=== PATIENT | female | born 1960 | race Caucasian/White ===

== ENCOUNTER 2019-01-11 12:50 | Day surgery (SDC) | payer BC, OTHER ==
--- OUTSIDE RECORDS SUMMARY | 2019-01-11 12:56 | XMS REPORT ---
:1960 [facility] Address [address] [place] [address] Dr. Bunch [address] [place] [address] Care Team Providers Name Role Phone Unavailable Unavailable Unavailable Problems This patient has no known problems. Allergies, Adverse Reactions, Alerts This patient has no known allergies or adverse reactions. Medications This patient has no known medications.
--- OUTSIDE RECORDS SUMMARY | 2019-01-11 12:56 | XMS REPORT | Summary of Care ---
:1960 Author Organization [facility] - Health Address [address] [place] [address] Care Team Providers Name Role Phone Elias Carvajal Primary Care Provider Encounter Details Date Type Department Care Team Description 01/04/2019 Orders Only [facility] Doctor Unassigned, No [address] [facility] [place] [address] [address] [place] [address] Allergies Not on Filedocumented as of this encounter (statuses as of 01/04/2019) Medications Not on filedocumented as of this encounter (statuses as of 01/04/2019) Active Problems Not on filedocumented as of this encounter (statuses as of 01/04/2019) Social History Tobacco Use Types Packs/Day Years Used Date Never Assessed Sex Assigned at Date Recorded Not on file Job Start Date Occupation Industry Not on file Not on file Not on file Travel History Travel Start Travel End No recent travel history available. documented as of this encounter Last Filed Vital Signs Not on filedocumented in this encounter Plan of Treatment Health Maintenance Due Date Last Done Comments HEPATITIS C (HCV) SCREEN 1960 DTaP,Tdap,and Td Vaccines (1 - 1980 Tdap) PAP SMEAR 1982 MAMMOGRAM 2001 COLONOSCOPY 11/27/2011 Zoster Recombinant Vaccine 11/27/2011 (SHINGRIX) (1 of 2) INFLUENZA VACCINE 02/04/2019 PNEUMOCOCCAL 0-64 YEARS COMBINED Aged Out No longer eligible based on SERIES patient's age to complete this topic documented as of this encounter Procedures Procedure Name Priority Date/Time Associated Diagnosis Comments ASSIGNMENT OF BENEFITS Routine 01/04/2019 2:03 PM CDT documented in this encounter Results Not on filedocumented in this encounter Insurance Payer Benefit Plan / Subscriber ID Effective Dates Phone Address Type Group MEDICARE MEDICARE PART xxxxxxxxxxx 2018-Fox [phone] Medicare A & B nt 2 [id number] YANN ODONNELL [id number] documented as of this encounter
--- OUTSIDE RECORDS SUMMARY | 2019-01-11 12:56 | XMS REPORT | Summary of Care ---
:1960 Author Organization [facility] Address [address] [place] [address] Care Team Providers Name Role Phone Elias Carvajal Primary Care Provider Reason for Referral Radiology Services (Routine) Status Reason Specialty Diagnoses / Referred By Referred To Procedures Contact Contact Closed Diagnostic Diagnoses Post-menopausal bleeding N95.0 (ICD-10-CM) - Post-menopausal bleeding Kadiyala, Radiology Procedures US TRANSVAGINAL CHG ECHOGRAPHY,TRANSVAGINAL [id number] - US TRANSVAGINAL [id number] - CHG ECHOGRAPHY,TRANSVAGINAL MD Tootie [address] [place] [address] Radiology Services (Routine) Status Reason Specialty Diagnoses / Referred By Referred To Procedures Contact Contact Closed Diagnostic Diagnoses Post-menopausal bleeding N95.0 (ICD-10-CM) - Post-menopausal bleeding Kadiyala, Radiology Procedures US TRANSVAGINAL CHG ECHOGRAPHY,TRANSVAGINAL [id number] - US TRANSVAGINAL [id number] - CHG ECHOGRAPHY,TRANSVAGINAL MD Tootie [address] [place] [address] [place] [address] Reason for Visit Radiology Services (Routine) Status Reason Specialty Diagnoses / Referred By Referred To Procedures Contact Contact Closed Diagnostic Diagnoses Post-menopausal bleeding N95.0 (ICD-10-CM) - Post-menopausal bleeding Kadiyala, Radiology Procedures US TRANSVAGINAL CHG ECHOGRAPHY,TRANSVAGINAL [id number] - US TRANSVAGINAL [id number] - CHG ECHOGRAPHY,TRANSVAGINAL MD Tootie [address] [place] [address] [place] [address] Encounter Details Date Type Department Care Team Description 01/04/2019 Hospital Encounter [facility] Jacobo Tootie Carlin, Candice Horton Ultrasound [address] [facility] [address] [place] [address] [place] [address] [place] [id number] Allergies Not on Filedocumented as of this encounter (statuses as of 01/05/2019) Medications Not on filedocumented as of this encounter (statuses as of 01/05/2019) Active Problems Not on filedocumented as of this encounter (statuses as of 01/05/2019) Social History Tobacco Use Types Packs/Day Years [...] Procedure Name Priority Date/Time Associated Diagnosis Comments US TRANSVAGINAL Routine 01/04/2019 2:53 PM Post-menopausal Results for this CDT bleeding procedure are in the results section. documented in this encounter Results US TRANSVAGINAL (01/04/2019 2:53 PM CDT) Specimen Narrative Performed At HISTORY:Postmenopausal bleeding. PACS/VR/DOSE TECHNIQUE: Transvaginal pelvic ultrasound study was completed by the technologist. FINDINGS: This examination was difficult because of position of the uterus within the pelvis. Uterus is of normal size and shape, measures approximately 6 x 2.8 x 4.1 cm in size with heterogeneous myometrial texture with suspicion of a 1 1.7 cm sized fibroid in the anterior wall at the fundus of the uterus. Endometrial echo complex is 4 mm. Small amount of free fluid noted in the cul-de-sac. Both ovaries are difficult to visualize. Right ovary is approximately 1.9 x 1.7 x 1.0 cm ( 1.98 ml) and left ovary is 2.4 x 1.7 x 1.7 cm ( 3.97 ml). CONCLUSIONS: 1. Normal size uterus with 1.7 cm fibroid suspected in the anterior wall of the fundus of the uterus. 2. No endometrial hyperplasia. 3. Difficult to visualize the ovaries. No adnexal masses detected. Procedure Note [facility], Radiant Results Inft User - 01/04/2019 2:58 PM CDT HISTORY: Postmenopausal bleeding. TECHNIQUE: Transvaginal pelvic ultrasound study was completed by the technologist. FINDINGS: This examination was difficult because of position of the uterus within the pelvis. Uterus is of normal size and shape, measures approximately 6 x 2.8 x 4.1 cm in size with heterogeneous myometrial texture with suspicion of a 1 1.7 cm sized fibroid in the anterior wall at the fundus of the uterus. Endometrial echo complex is 4 mm. Small amount of free fluid noted in the cul-de-sac. Both ovaries are difficult to visualize. Right ovary is approximately 1.9 x 1.7 x 1.0 cm ( 1.98 ml) and left ovary is 2.4 x 1.7 x 1.7 cm ( 3.97 ml). CONCLUSIONS: 1. Normal size uterus with 1.7 cm fibroid suspected in the anterior wall of the fundus of the uterus. 2. No endometrial hyperplasia. 3. Difficult to visualize the ovaries. No adnexal masses detected. Performing Organization Address City/State/Zipcode Phone Number PACS/VR/DOSE documented in this encounter Visit Diagnoses Diagnosis Post-menopausal bleeding Postmenopausal bleeding documented in this encounter Insurance Payer Benefit Plan / Subscriber ID Effective Dates Phone Address Type Group MEDICARE MEDICARE PART xxxxxxxxxxx 2018-Prese [phone] [address] Medicare A & B nt 2 [id number] YANN ODONNELL [id number] documented as of this encounter
[2019-01-11] MEDS ORDERED: NA CHLORIDE 0.9% 1,000 ML ONE (13:10)
[2019-01-11] MEDS ORDERED: LIDOCAINE 1% W/EPI 1:100,000 MDV 20 ML VIAL ONE (15:08)
[2019-01-11] MEDS ORDERED: PROMETHAZINE 25 MG/ML VIAL ONE (16:02)
[2019-01-11] MEDS ORDERED: HYDROCODONE/APAP 5/325 MG TAB ONE (16:02)
[2019-01-11] MEDS ORDERED: PROMETHAZINE 25 MG/ML VIAL IV ONE (16:10)
[2019-01-11] MEDS ORDERED: HYDROCODONE/APAP 5/325 MG TAB PO ONE (16:10)
[2019-01-11] MEDS ORDERED: FENTANYL CITR 100 MCG/2 ML ONE (16:28)
[2019-01-11] MEDS ORDERED: FENTANYL CITR 100 MCG/2 ML IV ONE ×2 (16:30→16:40)
[2019-01-11 17:28] VITALS: O2SAT 97
[2019-01-11 17:31] VITALS: BP 104/53; TEMP 98
--- NOTE | 2019-01-12 02:24 | OP ---
Date of Procedure: 01/11/2019 Surgeon: Tootie Carlin MD Preoperative Diagnosis: Postmenopausal bleeding. Postoperative Diagnosis: Postmenopausal bleeding. Procedure Performed: Hysteroscopy, dilation and curettage. Anesthesia: MAC plus paracervical block. Specimens: Endometrial curettings, very scant. Complications: No complications. Drains: No drains. Condition: Stable. Indications: Patient is a 58-year-old with postmenopausal bleeding, evaluated with a transvaginal ul trasound, her stripe was 4 mm. Discussed the benefits and risks of endometrial sampling to rule out endometrial atypia or malignancy and after patient understood the indications, procedure, and complic ations, she was brought to the OR. Description Of Procedure: After informed consent was re-verified in the preop, she was taken back to the OR, placed in the supine fashion on the operating table, MAC given, placed in a dorsal lithotomy position. Time-out done. Prep x3 with Betadine; vulva, vagina, and perineum were done. Then, spec ulum placed to expose the cervix. Anterior lip injected with 1% lidocaine mixed with 1:100,000 epine phrine, 5 cc and at 4 and 8 o'clock positions of the cervicovaginal junction. Then, 2 Allis clamps p laced on the anterior lip. Yanez speculum used, 30-degree lens, normal saline, Slimline hysteroscope were used to traverse the cervical canal under direct visualization into the uterine cavity. Cavity was empty. Endometrium was very thin. Both tubal ostia were visualized. No cavity distortions. Sc ope was removed. Endometrial curettings were performed. There was scant handed out for permanent pa thology. Instruments removed. Instrument and sponge counts correct at the end of the case. Patient tolerated the procedure well. She will follow up with me in 1 week for results. Most likely, the p athology would be negative. If it is, she will follow up with me in 6 months. If there is any atypi a or malignancy, then we will decide to proceed with surgical management. GONZÁLEZ Voice ID: [id number] Report ID: [id number]
[2019-01-12] MEDS ORDERED: LIDOCAINE 2% MPF 5 ML VIAL ONE (10:34)
[2019-01-12] MEDS ORDERED: PROPOFOL 200 MG/20 ML VIAL IV ONE (10:34)
== END 2019-01-11 17:10 | disposition home or self-care (01) ==
LOC: OR 12:50
PROVIDERS: ATTEND Obstetrics & Gynecology
PROC: 0UJD8ZZ Inspection of Uterus and Cervix, Via Natural or Artificial Opening Endoscopic (ICD-10-PCS; 2019-01-11)
PROC: 0UDB7ZX Extraction of Endometrium, Via Natural or Artificial Opening, Diagnostic (ICD-10-PCS; principal; 2019-01-11 14:30)
DX: N95.0 Postmenopausal bleeding (principal); E11.65 Type 2 diabetes mellitus with hyperglycemia; E03.9 Hypothyroidism, unspecified; I10 Essential (primary) hypertension; I48.91 Unspecified atrial fibrillation; I25.10 Atherosclerotic heart disease of native coronary artery without angina pectoris; E78.00 Pure hypercholesterolemia, unspecified; I25.2 Old myocardial infarction; Z95.1 Presence of aortocoronary bypass graft; F17.201 Nicotine dependence, unspecified, in remission; Z80.49 Family history of malignant neoplasm of other genital organs; Z83.3 Family history of diabetes mellitus
CPT/HCPCS: 82962 ×2; 88305; 58558; J2550 ×2; J3010 ×3; J7030

== ENCOUNTER 2019-07-05 14:21 | Emergency (ER) | payer BC, OTHER ==
--- OUTSIDE RECORDS SUMMARY | 2019-07-05 14:24 | XMS REPORT ---
:1960 [facility] Address [address] [place] [address] Dr. Bunch [address] [place] [address] Care Team Providers Name Role Phone Unavailable Unavailable Unavailable Problems This patient has no known problems. Allergies, Adverse Reactions, Alerts This patient has no known allergies or adverse reactions. Medications This patient has no known medications.
[2019-07-05] MEDS ORDERED: NA CHLORIDE 0.9% 500 ML ONE ×2 (15:31→16:28)
[2019-07-05 15:41] LABS: Absolute Lymphocytes (CBC) 1.5 K/uL (0.7-4.9); Basophils % 0.6 % (0-1.3); Hematocrit 38.8 % (36.0-45.0); Lymphocytes % 20.1 % (15.3-44.8); MPV 9.5 fL (7.6-11.3); RBC Red Blood Cell Count 4.36 M/uL (3.86-4.86)
[2019-07-05 16:13] LABS: BUN Blood Urea Nitrogen 31 mg/dL (7-18); Bicarbonate 26 mmol/L (21-32); Glucose Level 197 mg/dL (74-106); Potassium 4.1 mmol/L (3.5-5.1); Sodium Level 143 mmol/L (136-145); Troponin (Emerg Dept Use Only) < 0.02 ng/mL (0.0-0.045)
[2019-07-05] MEDS ORDERED: DIGOXIN 0.25 MG/ML AMP ONE (16:28)
--- NOTE | 2019-07-05 18:20 | ER ---
Nurse's Notes [facility] Name: Vane Lee Age: 58 yrs Sex: Female : 1960 Arrival Date: 07/05/2019 Time: 14:22 Bed 6 Private MD: Diagnosis: Unspecified atrial fibrillation Presentation: 07/05 14:25 Presenting complaint: Patient states: Seasonal flutters started last night. It also ca1 woke me up this morning. Previous history of cardioversion 2x, triple bypass 2014. Denies SOB, nausea, dizziness, lightheadness. Transition of care: patient was not received from another setting of care. Onset of symptoms was July 05, 2019. Risk Assessment: Do you want to hurt yourself or someone else? Patient reports no desire to harm self or others. Initial Sepsis Screen: Does the patient meet any 2 criteria? No. Patient's initial sepsis screen is negative. Does the patient have a suspected source of infection? No. Patient's initial sepsis screen is negative. Care prior to arrival: None. 14:25 Method Of Arrival: Ambulatory ca1 14:25 Acuity: LUIS 2 ca1 Historical: - Allergies: 14:30 No Known Allergies; ca1 - PMHx: 14:30 Atrial Fib; High Cholesterol; Hypertension; Hypothyroidism; ca1 - PSHx: 14:30 Heart stents; CABG; ca1 - Immunization history:: Adult Immunizations up to date. - Coronavirus screen:: The patient has NOT traveled to [place], [place], or [place] in the past 14 days. The patient has NOT had contact with known/suspected case of Coronavirus?. - Social history:: Smoking status: Patient denies any tobacco usage or history of. - Family history:: not pertinent. - Ebola Screening: : Patient negative for fever greater than or equal to 101.5 degrees Fahrenheit, and additional compatible Ebola Virus Disease symptoms Patient denies exposure to infectious person Patient denies travel to an Ebola-affected area in the 21 days before illness onset No symptoms or risks identified at this time. - Hospitalizations: : No recent hospitalization is reported. Screenin:00 Abuse screen: Denies threats or abuse. Denies injuries from another. Nutritional jl7 screening: No deficits noted. Tuberculosis screening: No symptoms or risk factors identified. Fall Risk IV access (20 points). Total Stanford Fall Scale indicates No Risk (0-24 pts). Assessment: 15:00 General: Appears in no apparent distress. uncomfortable, Behavior is calm, cooperative, jl7 appropriate for age. Pain: Denies pain. Neuro: Level of Consciousness is awake, alert, obeys commands, Oriented to person, place, time, situation. Cardiovascular: Heart tones present Patient's skin is warm and dry. Rhythm is atrial fibrillation. Respiratory: Airway is patent Respiratory effort is even, unlabored, Respiratory pattern is regular, symmetrical, Breath sounds are clear bilaterally. Denies shortness of breath. Derm: Skin is pink, warm \T\ dry. 16:15 Reassessment: ERD notified of BP, see MAR for orders. jl7 18:16 Reassessment: Patient appears in no apparent distress at this time. Patient and/or ph family updated on plan of care and expected duration. Pain level reassessed. Patient is alert, oriented x 3, equal unlabored respirations, skin warm/dry/pink. Pt d/c home, states that she will follow up w/ Dr Barbosa, instructed to return to ED if symptoms return. Vital Signs: 14:30 BP 87 / 62; Pulse 98; Resp 19 S; Temp 97.4(O); Pulse Ox 97% on R/A; Weight 81.19 kg ca1 (R); Height 5 ft. 4 in. (162.56 cm) (R); Pain 0/10; 15:37 BP 92 / 57; Pulse 69; Resp 16; Pulse Ox 98% ; Pain 0/10; jl7 15:51 BP 90 / 74; Pulse 72; Resp 17 S; Pulse Ox 96% on R/A; jl7 16:15 BP 79 / 61; Pulse 75; Resp 16 S; Pulse Ox 97% on R/A; jl7 17:00 BP 90 / 58; Pulse 61; Resp 15 S; Pulse Ox 98% on R/A; jl7 18:15 BP 102 / 68; Pulse 59; Resp 18; Temp 97.8; Pulse Ox 98% on R/A; ph 14:30 Body Mass Index 30.72 (81.19 kg, 162.56 cm) ca1 ED Course: 14:22 Patient arrived in ED. as 14:29 Triage completed. ca1 14:30 Arm band placed on right wrist. ca1 14:33 Mic Echeverria MD is Attending Physician. rn 14:59 Mora Clay, RN is Primary Nurse. ph 15:00 Patient has correct armband on for positive identification. Placed in gown. Bed in low jl7 position. Call light in reach. Side rails up X 1. cardiac monitor on. Pulse ox on. NIBP on. Warm blanket given. 15:10 Initial lab(s) drawn, by ky, sent to lab. Inserted saline lock: 22 gauge in right jl7 wrist, using aseptic technique. Blood collected. 15:35 Inserted saline lock: 18 gauge in right antecubital area, using aseptic technique. 3 15:41 Ba Antoine, RN is Primary Nurse. jl7 15:46 EKG done, by technical support representative. reviewed by Mic Echeverria MD. at1 17:[address] Carter paged through his answering service. eb 17:[address] Carter with Dr. Echeverria fo patient consult. eb 17:45 EKG done, by ED staff, reviewed by Mic Echeverria MD. [facility] 18:00 Reuben Carter MD is Referral Physician. rn 18:17 No provider procedures requiring assistance completed. IV discontinued, intact, ph bleeding controlled, No redness/swelling at site. Pressure dressing applied. Administered Medications: 15:25 Drug: NS 0.9% 500 ml Route: IV; Rate: bolus; Site: right wrist; jl7 16:00 Follow up: Response: No adverse reaction; IV Status: Completed infusion; IV Intake: jl7 500ml 16:26 Not Given (Duplicate Order): Digoxin 0.125 mg IVP once rn 16:28 Drug: NS 0.9% 500 ml Route: IV; Rate: bolus; Site: right antecubital; jl7 18:16 Follow up: Response: No adverse reaction; Blood pressure is elevated; IV Status: ph Completed infusion; IV Intake: 500ml 16:29 Drug: Digoxin 0.25 mg Route: IVP; Site: right antecubital; jl7 18:15 Follow up: Response: No adverse reaction; Cardiac rhythm changed ph Intake: 16:00 IV: 500ml; Total: 500ml. jl7 18:16 IV: 500ml; Total: 1000ml. ph Outcome: 18:00 Discharge ordered by MD. rn 18:17 Discharged to home ambulatory, with significant other. ph 18:17 Condition: improved 18:17 Discharge instructions given to patient, Instructed on discharge instructions, follow up and referral plans. Demonstrated understanding of instructions, follow-up care. 18:18 Patient left the ED. ph Signatures: Mackenzie Aquino Roman, MD MD rn Kelsi Hines, cyanide pot tender EKG Tat1 Mora Clay RN RN ph Ba Antoine RN RN 7 Maru Bueno 3 Sue Rivera Cheryl RN RN ca1 Corrections: (The following items were deleted from the chart) 14:33 14:25 Acuity: LUIS 3 ca1 ca1
--- NOTE | 2019-07-05 18:20 | EDPHYS ---
Physician Documentation [facility] Name: Vane Lee Age: 58 yrs Sex: Female : 1960 Arrival Date: 07/05/2019 Time: 14:22 Bed 6 Private MD: ED Physician Mic Echeverria HPI: 07/05 15:48 This 58 yrs old Female presents to ER via Ambulatory with complaints of afib. rn 15:48 The patient presents with a history of irregular heart beat, heart racing. Context: The rn symptoms occur at rest. Onset: The symptoms/episode began/occurred last night. Duration: The patient or guardian reports a single episode. Modifying factors: The symptoms are aggravated by nothing. The symptoms are alleviated by nothing. Associated signs and symptoms: Pertinent negatives: chest pain, fever, lightheadedness, nausea, syncope, near-syncope, vertigo, vomiting. Severity of symptoms: At their worst the symptoms were moderate in the emergency department the symptoms have improved. The patient has experienced similar episodes in the past. The patient has not recently seen a physician. Historical: - Allergies: 14:30 No Known Allergies; ca1 - PMHx: 14:30 Atrial Fib; High Cholesterol; Hypertension; Hypothyroidism; ca1 - PSHx: 14:30 Heart stents; CABG; ca1 - Immunization history:: Adult Immunizations up to date. - Coronavirus screen:: The patient has NOT traveled to [place], [place], or [place] in the past 14 days. The patient has NOT had contact with known/suspected case of Coronavirus?. - Social history:: Smoking status: Patient denies any tobacco usage or history of. - Family history:: not pertinent. - Ebola Screening: : Patient negative for fever greater than or equal to 101.5 degrees Fahrenheit, and additional compatible Ebola Virus Disease symptoms Patient denies exposure to infectious person Patient denies travel to an Ebola-affected area in the 21 days before illness onset No symptoms or risks identified at this time. - Hospitalizations: : No recent hospitalization is reported. ROS: 15:48 Constitutional: Negative for fever, chills, and weight loss, Eyes: Negative for injury, rn pain, redness, and discharge, Neck: Negative for injury, pain, and swelling, Cardiovascular: Negative for chest pain, and edema, Respiratory: Negative for shortness of breath, cough, wheezing, and pleuritic chest pain, Abdomen/GI: Negative for abdominal pain, nausea, vomiting, diarrhea, and constipation, MS/Extremity: Negative for injury and deformity, Skin: Negative for injury, rash, and discoloration, Neuro: Negative for headache, weakness, numbness, tingling, and seizure. Exam: 15:48 Constitutional: This is a well developed, well nourished patient who is awake, alert, rn and in no acute distress. Head/Face: Normocephalic, atraumatic. ENT: MMM Cardiovascular: Irregular rhythm, regular rate Respiratory: No increased work of breathing, no retractions or nasal flaring. Abdomen/GI: soft, non-tender Skin: Warm, dry with normal turgor. Normal color with no rashes, no lesions, and no evidence of cellulitis. MS/ Extremity: Pulses equal, no cyanosis. Neurovascular intact. Full, normal range of motion. Equal circumference. Neuro: Awake and alert Vital Signs: 14:30 BP 87 / 62; Pulse 98; Resp 19 S; Temp 97.4(O); Pulse Ox 97% on R/A; Weight 81.19 kg ca1 (R); Height 5 ft. 4 in. (162.56 cm) (R); Pain 0/10; 15:37 BP 92 / 57; Pulse 69; Resp 16; Pulse Ox 98% ; Pain 0/10; jl7 15:51 BP 90 / 74; Pulse 72; Resp 17 S; Pulse Ox 96% on R/A; jl7 16:15 BP 79 / 61; Pulse 75; Resp 16 S; Pulse Ox 97% on R/A; jl7 17:00 BP 90 / 58; Pulse 61; Resp 15 S; Pulse Ox 98% on R/A; jl7 18:15 BP 102 / 68; Pulse 59; Resp 18; Temp 97.8; Pulse Ox 98% on R/A; ph 14:30 Body Mass Index 30.72 (81.19 kg, 162.56 cm) ca1 MDM: 14:33 Patient medically screened. rn 17:59 Differential diagnosis: arrythmia, dehydration, stress disorder. Data reviewed: vital rn signs, nurses notes, lab test result(s), EKG, and as a result, I will discharge patient. Counseling: I had a detailed discussion with the patient and/or guardian regarding: the historical points, exam findings, and any diagnostic results supporting the discharge/admit diagnosis, lab results, the need for outpatient follow up, to return to the emergency department if symptoms worsen or persist or if there are any questions or concerns that arise at home. Response to treatment: the patient's symptoms have resolved after treatment, the patient's condition has returned to base line, the patient is now symptom free, and as a result, I will discharge patient. Special discussion: I discussed with the patient/guardian in detail that at this point there is no indication for admission to the hospital. It is understood, however, that if the symptoms persist or worsen the patient needs to return immediately for re-evaluation. ED course: Pt resolved, now in sinus rhythm, asymptomatic, consulted with Dr. Carter, states now that sinus can f/u tomorrow in his clinic.. 07/05 14:53 Order name: CBC with Diff; Complete Time: 16: rn 07/05 14:53 Order name: Basic Metabolic Panel; Complete Time: 16: rn 07/05 14:53 Order name: Troponin (emerg Dept Use Only); Complete Time: 16: rn 07/05 14:53 Order name: Digoxin; Complete Time: 16: rn 07/05 14:53 Order name: IV Start; Complete Time: 15:24 rn 07/05 14:53 Order name: EKG; Complete Time: 14:53 rn 07/05 14:53 Order name: EKG - Nurse/Tech; Complete Time: 15:24 rn Administered Medications: 15:25 Drug: NS 0.9% 500 ml Route: IV; Rate: bolus; Site: right wrist; jl7 16:00 Follow up: Response: No adverse reaction; IV Status: Completed infusion; IV Intake: jl7 500ml 16:26 Not Given (Duplicate Order): Digoxin 0.125 mg IVP once rn 16:28 Drug: NS 0.9% 500 ml Route: IV; Rate: bolus; Site: right antecubital; jl7 18:16 Follow up: Response: No adverse reaction; Blood pressure is elevated; IV Status: ph Completed infusion; IV Intake: 500ml 16:29 Drug: Digoxin 0.25 mg Route: IVP; Site: right antecubital; jl7 18:15 Follow up: Response: No adverse reaction; Cardiac rhythm changed ph Disposition: 07/05/19 18:00 Discharged to Home. Impression: Unspecified atrial fibrillation. - Condition is Stable. - Discharge Instructions: Atrial Fibrillation. - Medication Reconciliation Form, Thank You Letter, Antibiotic Education, Prescription Opioid Use form. - Follow up: Reuben Carter MD; When: Tomorrow; Reason: Recheck today's complaints, Re-evaluation by your physician. - Problem is new. - Symptoms are resolved. Signatures: Dispatcher [employer] [facility] Mic Echeverria MD MD rn Mora Clay RN RN ph Ba Antoine RN RN jl7 Acob, Janelle RN RN ca1 Corrections: (The following items were deleted from the chart) 18:18 18:00 07/05/2019 18:00 Discharged to Home. Impression: Unspecified atrial fibrillation. ph Condition is Stable. Forms are Medication Reconciliation Form, Thank You Letter, Antibiotic Education, Prescription Opioid Use. Follow up: Reuben Carter; When: Tomorrow; Reason: Recheck today's complaints, Re-evaluation by your physician. Problem is new. Symptoms are resolved. rn
[2019-07-05 21:24] VITALS: O2SAT 98
[2019-07-05 21:26] VITALS: BP 102/68; TEMP 97.8
--- NOTE | 2019-07-06 13:49 | EKG ---
Test Date: 2019-07-05 Test Time: 14:43:21 Engineering Operations Leader: LILIAN MEASUREMENT RESULTS: Intervals: Rate: 84 NV: QRSD: 106 QT: 416 QTc: 491 [place]: P: NV: QRS: -43 T: 137 INTERPRETIVE STATEMENTS: Atrial fibrillation Left axis deviation ST & T wave abnormality, consider lateral ischemia or digitalis effect Prolonged QT Abnormal ECG Compared to ECG 06/10/2017 08:57:32 ST (T wave) deviation now present Possible ischemia now present Prolonged QT interval now present Sinus bradycardia no longer present First degree AV block no longer present T-wave abnormality no longer present Electronically Signed On 07-06-19 13:46:07 VARIETY SAW OPERATOR by Reuben Carter
--- NOTE | 2019-07-06 13:49 | EKG ---
Test Date: 2019-07-05 Test Time: 15:37:33 Tower Crane Operator: LILIAN MEASUREMENT RESULTS: Intervals: Rate: 73 RI: QRSD: 110 QT: 456 QTc: 502 [place]: P: RI: QRS: -61 T: 144 INTERPRETIVE STATEMENTS: Atrial fibrillation Left axis deviation ST & T wave abnormality, consider lateral ischemia Prolonged QT Abnormal ECG Compared to ECG 07/05/2019 14:43:21 No significant changes Electronically Signed On 07-06-19 13:46:01 ELECTROTYPE MOLDER by Reuben Carter
--- NOTE | 2019-07-06 13:49 | EKG ---
Test Date: 2019-07-05 Test Time: 17:41:48 Reconciliation Clerk: YANG MEASUREMENT RESULTS: Intervals: Rate: 53 CA: 244 QRSD: 104 QT: 488 QTc: 457 [place]: P: 52 CA: 244 QRS: -68 T: 124 INTERPRETIVE STATEMENTS: Sinus bradycardia with 1st degree AV block Left axis deviation T wave abnormality, consider lateral ischemia Abnormal ECG Compared to ECG 07/05/2019 15:37:33 First degree AV block now present T-wave abnormality now present Atrial fibrillation no longer present ST (T wave) deviation no longer present Prolonged QT interval no longer present Possible ischemia still present Electronically Signed On 07-06-19 13:45:55 VIROLOGY TEACHER by Reuben Carter
== END 2019-07-05 18:18 | disposition home or self-care (01) ==
LOC: ER 14:21
DX: I48.92 Unspecified atrial flutter (principal); Z95.1 Presence of aortocoronary bypass graft
CPT/HCPCS: 96361; 93005 ×3; 85025; 80048; 36415; 80162; 84484; 96374; 99284; J1160; J7040 ×2

== ENCOUNTER 2019-07-07 00:30 | Emergency (ER) | payer BC, OTHER ==
[2019-07-07] MEDS ORDERED: NA CHLORIDE 0.9% 1,000 ML ONE ×2 (01:14→02:46)
[2019-07-07 01:47] LABS: Absolute Lymphocytes (CBC) 2.3 K/uL (0.7-4.9); Basophils % 0.8 % (0-1.3); Hematocrit 37.1 % (36.0-45.0); Lymphocytes % 32.2 % (15.3-44.8); MPV 9.4 fL (7.6-11.3); RBC Red Blood Cell Count 4.17 M/uL (3.86-4.86)
[2019-07-07 01:48] LABS: Protime INR 2.17
[2019-07-07 02:01] LABS: ALT/SGPT 38 U/L (12-78); AST/SGOT 24 U/L (15-37); Albumin 3.8 g/dL (3.4-5.0); Alkaline Phosphatase 79 U/L (45-117); BUN Blood Urea Nitrogen 25 mg/dL (7-18); Bicarbonate 30 mmol/L (21-32); Bilirubin Direct 0.2 mg/dL (0-0.2); Bilirubin Total 0.5 mg/dL (0.2-1.0); Glucose Level 90 mg/dL (74-106); Magnesium 1.9 mg/dL (1.8-2.4); NT PRO-BNP 1530 pg/mL (<125); Potassium 3.8 mmol/L (3.5-5.1); Protein, Total 7.5 g/dL (6.4-8.2); Sodium Level 142 mmol/L (136-145); Troponin (Emerg Dept Use Only) < 0.02 ng/mL (0.0-0.045)
--- NOTE | 2019-07-07 03:27 | ER ---
Nurse's Notes [facility] Name: Vane Lee Age: 58 yrs Sex: Female : 1960 Arrival Date: 07/07/2019 Time: 00:32 Bed 5 Private MD: Diagnosis: Atrial fibrillation and flutter Presentation: 07/07 00:40 Presenting complaint: Patient states: she has been feeling a flutter in her chest since aa1 approx 2144 this evening and was concerned because she was recently seen here for AF. Denies CP or SOB. States she was seen by Dr. Carter this morning for a f/u appt from her recent visit. Transition of care: patient was not received from another setting of care. Onset of symptoms was July 06, 2019 at 21:45. Risk Assessment: Do you want to hurt yourself or someone else? Patient reports no desire to harm self or others. Initial Sepsis Screen: Does the patient meet any 2 criteria? No. Patient's initial sepsis screen is negative. Does the patient have a suspected source of infection? No. Patient's initial sepsis screen is negative. Care prior to arrival: None. 00:40 Method Of Arrival: Wheelchair aa1 00:40 Acuity: LUIS 3 aa1 Historical: - Allergies: 01:06 No Known Allergies; aa1 - Home Meds: 01:06 ozempic 0.5 mg weekly [Active]; Entresto 49-51 mg oral tab 1 tab 2 times per day aa1 [Active]; levothyroxine 50 mcg tab 1 tab once daily [Active]; amiodarone 200 mg Oral tab 1 tab once daily [Active]; gabapentin 300 mg Oral cap 1 cap 3 times per day [Active]; atorvastatin 40 mg Oral tab 1 tab once daily [Active]; carvedilol 6.25 mg Oral tab 1 tab 2 times per day [Active]; furosemide 40 mg Oral tab 1 tab as needed [Active]; aspirin 81 mg Oral TbEC 1 tab once daily [Active]; alprazolam 0.25 mg Oral tab 1 tab as needed [Active]; Xarelto 15 mg oral tab daily [Active]; - PMHx: 01:06 Atrial Fib; High Cholesterol; Hypertension; Hypothyroidism; Anxiety; aa1 - PSHx: 01:06 Heart stents; CABG; Tubal ligation; aa1 - Immunization history:: Flu vaccine is up to date. - Coronavirus screen:: The patient has NOT traveled to [place], [place], or [place] in the past 14 days. Proceed with normal triage process as indicated. - Social history:: Smoking status: Patient denies any tobacco usage or history of. - Ebola Screening: : No symptoms or risks identified at this time. Screenin:45 Abuse screen: Denies threats or abuse. Denies injuries from another. Nutritional aa1 screening: No deficits noted. Tuberculosis screening: No symptoms or risk factors identified. Fall Risk None identified. Assessment: 00:45 General: Appears in no apparent distress. comfortable, Behavior is calm, cooperative, aa1 appropriate for age. Pain: Denies pain. Neuro: Level of Consciousness is awake, alert, obeys commands, Oriented to person, place, time, situation, Moves all extremities. Full function Speech is normal. Cardiovascular: Reports palpitations, Denies chest pain, diaphoresis, lightheadedness, nausea, shortness of breath, Heart tones S1 S2 present Capillary refill < 3 seconds Clubbing of nail beds is absent JVD is absent Patient's skin is warm and dry. Respiratory: Airway is patent Respiratory effort is even, unlabored, Respiratory pattern is regular, symmetrical. GI: No signs and/or symptoms were reported involving the gastrointestinal system. : No signs and/or symptoms were reported regarding the genitourinary system. EENT: No signs and/or symptoms were reported regarding the EENT system. Derm: Skin is intact, is healthy with good turgor, Skin is pink, warm \T\ dry. Musculoskeletal: Circulation, motion, and sensation intact. Capillary refill < 3 seconds. 01:47 Reassessment: Patient appears in no apparent distress at this time. Patient and/or aa1 family updated on plan of care and expected duration. Pain level reassessed. Patient is alert, oriented x 3, equal unlabored respirations, skin warm/dry/pink. Awaiting lab results. 02:45 Reassessment: Patient appears in no apparent distress at this time. Patient and/or aa1 family updated on plan of care and expected duration. Pain level reassessed. Patient is alert, oriented x 3, equal unlabored respirations, skin warm/dry/pink. Per DAIRY NUTRITION CONSULTANT, will administer 2nd liter bolus and d/c once complete Patient denies pain at this time. Patient states feeling better. 03:33 Reassessment: Patient appears in no apparent distress at this time. Patient is alert, aa1 oriented x 3, equal unlabored respirations, skin warm/dry/pink. Discussed d/c \T\ f/u instructions with pt \T\ family; denies questions or concerns at this time. Ambulatory to lobby with steady gait. Patient denies pain at this time. Vital Signs: 00:40 BP 110 / 82; Pulse 84; Resp 18; Temp 97.0; Pulse Ox 99% on R/A; Weight 80.74 kg (R); aa1 Height 5 ft. 4 in. (162.56 cm); Pain 0/10; 01:47 BP 93 / 60; Pulse 64; Resp 16; Pulse Ox 99% on R/A; Pain 0/10; aa1 02:40 BP 97 / 59; Pulse 71; Resp 16; Pulse Ox 99% on R/A; Pain 0/10; aa1 03:33 BP 93 / 58; Pulse 77; Resp 16; Temp 97.2; Pulse Ox 98% on R/A; Pain 0/10; aa1 00:40 Body Mass Index 30.55 (80.74 kg, 162.56 cm) aa1 ED Course: 00:32 Patient arrived in ED. cl3 00:40 Arm band placed on right wrist. Patient placed in an exam room, on a stretcher. aa1 00:43 Ajay Villa NP is PHCP. pm1 00:43 Fabricio Frausto MD is Attending Physician. pm1 00:45 Patient has correct armband on for positive identification. Placed in gown. Bed in low aa1 position. Call light in reach. case monitor on. Pulse ox on. NIBP on. Warm blanket given. Pillow given. 00:59 Sofi Camacho, NORRIS is Primary Nurse. aa1 01:01 Triage completed. aa1 01:08 EKG done, by ED staff, reviewed by Fabricio Frausto MD. aa1 01:13 X-ray completed. Portable x-ray completed in exam room. Patient tolerated procedure mh1 well. 01:15 Initial lab(s) drawn, by me, sent to lab. Inserted saline lock: 20 gauge in right aa1 antecubital area, using aseptic technique. Blood collected. 01:50 XRAY Chest (1 view) In Process Unspecified. EDMS 03:25 Reuben Carter MD is Referral Physician. pm1 03:33 No provider procedures requiring assistance completed. IV discontinued, intact, aa1 bleeding controlled, No redness/swelling at site. Pressure dressing applied. Administered Medications: 01:20 Drug: NS 0.9% 1000 ml Route: IV; Rate: 1000 ml; Site: right antecubital; aa1 02:00 Follow up: IV Status: Completed infusion; IV Intake: 1000ml aa1 02:46 Drug: NS 0.9% 1000 ml Route: IV; Rate: 1000 ml; Site: right antecubital; aa1 03:33 Follow up: IV Status: Completed infusion; IV Intake: 1000ml aa1 Intake: 02:00 IV: 1000ml; Total: 1000ml. aa1 03:33 IV: 1000ml; Total: 2000ml. aa1 Outcome: 03:25 Discharge ordered by MD. pm1 03:33 Discharged to home ambulatory, with family. aa1 03:33 Condition: good 03:33 Discharge instructions given to patient, family, Instructed on discharge instructions, follow up and referral plans. medication usage, Demonstrated understanding of instructions, follow-up care, medications. 03:35 Patient left the ED. aa1 Signatures: Dispatcher [employer] EDMD Sofi Camacho RN RN aa1 Duyen Mast mh1 Ajay Villa, JACOB DAIRY NUTRITION CONSULTANT pm1 Richelle Delatorre cl3
--- NOTE | 2019-07-07 03:27 | EDPHYS ---
Physician Documentation [facility] Name: Vane Lee Age: 58 yrs Sex: Female : 1960 Arrival Date: 07/07/2019 Time: 00:32 Bed 5 Private MD: ED Physician Fabricio Frausto HPI: 07/07 00:49 This 58 yrs old Female presents to ER via Wheelchair with complaints of pm1 Palpitations. 00:49 The patient presents with a history of irregular heart beat. Context: The symptoms pm1 occur and the patient has a history of history of atrial fibrillation, Onset after taking a shower this afternoon at 2100. Modifying factors: The symptoms are aggravated by anxiety, The symptoms are alleviated by prescription medication, Took additional amiodarone as directed by Dr. Barbosa. Associated signs and symptoms: Pertinent positives: anxiety, Pertinent negatives: chest pain, SOB. Severity of symptoms: in the emergency department the symptoms are unchanged. The patient has experienced similar episodes in the past, a few times. Patient was seen here 2 days ago for a similar complaint of palpitations and atrial fibrillation. She was discharged home and followed up with Dr. Barbosa Tuesday morning. He started her on Xarelto 15 mg that she has already taken and instructed her to take an additional amiodarone or extra carvedilol. Patient took an extra Amiodarone but held the extra carvedilol because her heart rate was normal. Historical: - Allergies: 01:06 No Known Allergies; aa1 - Home Meds: 01:06 ozempic 0.5 mg weekly [Active]; Entresto 49-51 mg oral tab 1 tab 2 times per day aa1 [Active]; levothyroxine 50 mcg tab 1 tab once daily [Active]; amiodarone 200 mg Oral tab 1 tab once daily [Active]; gabapentin 300 mg Oral cap 1 cap 3 times per day [Active]; atorvastatin 40 mg Oral tab 1 tab once daily [Active]; carvedilol 6.25 mg Oral tab 1 tab 2 times per day [Active]; furosemide 40 mg Oral tab 1 tab as needed [Active]; aspirin 81 mg Oral TbEC 1 tab once daily [Active]; alprazolam 0.25 mg Oral tab 1 tab as needed [Active]; Xarelto 15 mg oral tab daily [Active]; - PMHx: 01:06 Atrial Fib; High Cholesterol; Hypertension; Hypothyroidism; Anxiety; aa1 - PSHx: 01:06 Heart stents; CABG; Tubal ligation; aa1 - Immunization history:: Flu vaccine is up to date. - Coronavirus screen:: The patient has NOT traveled to [place], [place], or [place] in the past 14 days. Proceed with normal triage process as indicated. - Social history:: Smoking status: Patient denies any tobacco usage or history of. - Ebola Screening: : No symptoms or risks identified at this time. ROS: 01:19 Constitutional: Negative for fever, chills, and weight loss, Eyes: Negative for injury, pm1 pain, redness, and discharge, ENT: Negative for injury, pain, and discharge, Neck: Negative for injury, pain, and swelling, Respiratory: Negative for shortness of breath, cough, wheezing, and pleuritic chest pain. 01:19 Abdomen/GI: Negative for abdominal pain, nausea, vomiting, diarrhea, and constipation, Back: Negative for injury and pain, : Negative for injury, bleeding, discharge, and swelling, MS/Extremity: Negative for injury and deformity, Skin: Negative for injury, rash, and discoloration, Neuro: Negative for headache, weakness, numbness, tingling, and seizure. 01:19 Cardiovascular: Positive for palpitations, Negative for chest pain, edema, orthopnea. Exam: 01:19 Constitutional: This is a well developed, well nourished patient who is awake, alert, pm1 and in no acute distress. Head/Face: Normocephalic, atraumatic. Eyes: Pupils equal round and reactive to light, extra-ocular motions intact. Lids and lashes normal. Conjunctiva and sclera are non-icteric and not injected. Cornea within normal limits. Periorbital areas with no swelling, redness, or edema. Chest/axilla: Normal chest wall appearance and motion. Nontender with no deformity. No lesions are appreciated. 01:19 Respiratory: Lungs have equal breath sounds bilaterally, clear to auscultation and percussion. No rales, rhonchi or wheezes noted. No increased work of breathing, no retractions or nasal flaring. Abdomen/GI: Soft, non-tender, with normal bowel sounds. No distension or tympany. No guarding or rebound. No evidence of tenderness throughout. Back: No spinal tenderness. No costovertebral tenderness. Full range of motion. Skin: Warm, dry with normal turgor. Normal color with no rashes, no lesions, and no evidence of cellulitis. MS/ Extremity: Pulses equal, no cyanosis. Neurovascular intact. Full, normal range of motion. 01:19 Cardiovascular: Rate: normal, Rhythm: irregular, Pulses: no pulse deficits are appreciated, Heart sounds: normal, Edema: is not appreciated. 01:19 Neuro: Orientation: is normal, Motor: is normal, moves all fours. Vital Signs: 00:40 BP 110 / 82; Pulse 84; Resp 18; Temp 97.0; Pulse Ox 99% on R/A; Weight 80.74 kg (R); aa1 Height 5 ft. 4 in. (162.56 cm); Pain 0/10; 01:47 BP 93 / 60; Pulse 64; Resp 16; Pulse Ox 99% on R/A; Pain 0/10; aa1 02:40 BP 97 / 59; Pulse 71; Resp 16; Pulse Ox 99% on R/A; Pain 0/10; aa1 03:33 BP 93 / 58; Pulse 77; Resp 16; Temp 97.2; Pulse Ox 98% on R/A; Pain 0/10; aa1 00:40 Body Mass Index 30.55 (80.74 kg, 162.56 cm) aa MDM: 00:49 Patient medically screened. pm1 02:50 Data reviewed: vital signs. Data interpreted: Pulse oximetry: on room air is 99 %. pm1 Interpretation: normal. Counseling: I had a detailed discussion with the patient and/or guardian regarding: the historical points, exam findings, and any diagnostic results supporting the discharge/admit diagnosis, lab results, radiology results, the need for outpatient follow up, to return to the emergency department if symptoms worsen or persist or if there are any questions or concerns that arise at home. 07/07 00:49 Order name: Basic Metabolic Panel; Complete Time: 02:00 pm1 07/07 00:49 Order name: CBC with Diff; Complete Time: 02:00 pm1 07/07 00:49 Order name: LFT's; Complete Time: 02: pm1 07/07 00:49 Order name: Magnesium; Complete Time: 02:00 pm07/07 00:49 Order name: NT PRO-BNP; Complete Time: 02:00 pm1 07/07 00:49 Order name: PT-INR; Complete Time: 02:00 pm07/07 00:49 Order name: Troponin (emerg Dept Use Only); Complete Time: 02:00 pm1 07/07 00:49 Order name: XRAY Chest (1 view) pm1 07/07 00:49 Order name: EKG; Complete Time: 00:50 pm1 07/07 00:49 Order name: Cardiac monitoring; Complete Time: 01:06 pm07/07 00:49 Order name: EKG - Nurse/Tech; Complete Time: 01:06 pm07/07 00:49 Order name: IV Saline Lock; Complete Time: :23 pm07/07 00:49 Order name: Labs collected and sent; Complete Time: 01:23 pm07/07 00:49 Order name: O2 Per Protocol; Complete Time: 01: pm07/07 00:49 Order name: O2 Sat Monitoring; Complete Time: 01:06 pm1 EC:38 Rate is 83 beats/min. Rhythm is irregular, A fib with No ectopy. No Q waves. T waves pm1 are Normal. No ST changes noted. Clinical impression: Atrial Fibrillation. Administered Medications: 01:20 Drug: NS 0.9% 1000 ml Route: IV; Rate: 1000 ml; Site: right antecubital; aa1 02:00 Follow up: IV Status: Completed infusion; IV Intake: 1000ml aa1 02:46 Drug: NS 0.9% 1000 ml Route: IV; Rate: 1000 ml; Site: right antecubital; aa1 03:33 Follow up: IV Status: Completed infusion; IV Intake: 1000ml aa1 Disposition: 06:03 Co-signature as Attending Physician, Fabricio Frausto MD I agree with the assessment and kdr plan of care. Disposition: 07/07/19 03:25 Discharged to Home. Impression: Atrial fibrillation and flutter. - Condition is Stable. - Discharge Instructions: Atrial Fibrillation. - Medication Reconciliation Form, Thank You Letter, Antibiotic Education, Prescription Opioid Use form. - Follow up: Emergency Department; When: As needed; Reason: Worsening of condition. Follow up: Reuben Carter; When: 2 - 3 days; Reason: Recheck today's complaints, Continuance of care, Re-evaluation by your physician. - Problem is new. - Symptoms have improved. Signatures: Dispatcher [employer] EDSofi Bustillo RN RN aa1 Fabricio Frausto MD MD kdr Marinas, Patrick, FIELD TALENT QUALIFICATION SPECIALIST FIELD TALENT QUALIFICATION SPECIALIST pm1 Corrections: (The following items were deleted from the chart) 03:35 03:25 07/07/2019 03:25 Discharged to Home. Impression: Atrial fibrillation and flutter. aa1 Condition is Stable. Forms are Medication Reconciliation Form, Thank You Letter, Antibiotic Education, Prescription Opioid Use. Follow up: Emergency Department; When: As needed; Reason: Worsening of condition. Follow up: Reuben Carter; When: 2 - 3 days; Reason: Recheck today's complaints, Continuance of care, Re-evaluation by your physician. Problem is new. Symptoms have improved. pm1
[2019-07-07 03:51] VITALS: BP 93/58; TEMP 97.2; O2SAT 98
--- OUTSIDE RECORDS SUMMARY | 2019-07-07 04:49 | XMS REPORT ---
:1960 [facility] Address [address] [place] [address] Dr. Bunch [address] [place] [id number] Care Team Providers Name Role Phone Unavailable Unavailable Unavailable Problems This patient has no known problems. Allergies, Adverse Reactions, Alerts This patient has no known allergies or adverse reactions. Medications This patient has no known medications.
--- NOTE | 2019-07-07 11:24 | RAD REPORT ---
EXAM DESCRIPTION: RAD - Chest Single View - 07/07/2019 4:48 am CLINICAL HISTORY: PALPITATIONS Chest pain. COMPARISON: Chest Single View dated 06/09/2017; Chest Single View dated 10/02/2015; Chest Single View d ated 10/02/2015; CHEST SINGLE VIEW dated 05/02/2014 FINDINGS: Portable technique limits examination quality. Mild interstitial pulmonary edema seen. The heart is upper limit normal in size with changes of a luisito or CABG. No displaced fractures. IMPRESSION: Mild CHF.
--- NOTE | 2019-07-08 07:50 | EKG ---
Test Date: 2019-07-07 Test Time: 01:07:45 Tree Faller: JESUS MEASUREMENT RESULTS: Intervals: Rate: 83 [place]: QRSD: 110 QT: 418 QTc: 491 [place]: P: [place]: QRS: -63 T: 149 INTERPRETIVE STATEMENTS: Atrial fibrillation with premature ventricular or aberrantly conducted complexes Left axis deviation ST & T wave abnormality, consider lateral ischemia or digitalis effect Prolonged QT Abnormal ECG Compared to ECG 07/05/2019 17:41:48 Ventricular premature complex(es) now present ST (T wave) deviation now present Prolonged QT interval now present Sinus bradycardia no longer present First degree AV block no longer present T-wave abnormality no longer present Possible ischemia still present Electronically Signed On 07-08-19 07:49:47 HUMAN SERVICES SUPERVISOR by Reuben Carter
== END 2019-07-07 03:35 | disposition home or self-care (01) ==
LOC: ER 00:30
DX: I48.91 Unspecified atrial fibrillation (principal); I48.92 Unspecified atrial flutter; I10 Essential (primary) hypertension; E03.9 Hypothyroidism, unspecified; E78.00 Pure hypercholesterolemia, unspecified; F41.9 Anxiety disorder, unspecified; Z79.01 Long term (current) use of anticoagulants; Z79.82 Long term (current) use of aspirin; Z95.1 Presence of aortocoronary bypass graft; Z95.818 Presence of other cardiac implants and grafts
CPT/HCPCS: 93005; 85025; 80048; 36415; 83735; 85610; 80076; 84484; 83880; 71045; 96360; 99284; J7030 ×2

== ENCOUNTER 2020-08-06 07:29 | Day surgery (SDC) | payer OTHER ==
[2020-08-06] MEDS ORDERED: MIDAZOLAM HCL 2 MG/2 ML INJ ONE (08:15)
[2020-08-06] MEDS ORDERED: FENTANYL CITR 100 MCG/2 ML ONE (08:15)
[2020-08-06] MEDS: NA CHLORIDE 0.9% 1,000 ML ONE ×2 (08:15→08:24)
[2020-08-06] MEDS ORDERED: propofoL 200 MG/20 ML VIAL IV ONE (08:15)
[2020-08-06] MEDS ORDERED: LIDOCAINE 1% MPF 30 ML VIAL ONE (08:15)
[2020-08-06] MEDS ORDERED: CEFAZOLIN/SWI 1gm 1 GM/10 ML SYR ONE (08:16)
[2020-08-06] MEDS ORDERED: BUPIVACA 0.25%/EPI 0.0005% MDV 50 ML VIAL ONE (08:31)
[2020-08-06 08:49] VITALS: TEMP 97
--- NOTE | 2020-08-06 08:49 | P.OP ---
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
[2020-08-06] MEDS ORDERED: ACETAMINOPHEN 500 MG TAB ONE (09:32)
[2020-08-06] MEDS ORDERED: HYDROCODONE/APAP 5/325 MG TAB ONE (09:43)
--- NOTE | 2020-08-06 09:48 | OP ---
Date of Procedure: 08/06/2020 Surgeon: Lincoln Chicas MD, Preoperative Diagnosis: Central back lipoma-left of [place]. Postoperative Diagnosis: Central back lipoma-left of [place]. Procedure Performed: Excision of central back lipoma, left of center. Anesthesia: IV sedation plus local with 0.25% Marcaine with epinephrine. Estimated Blood Loss: Less than 1 mL. Specimen: Fiber lipomatous mass approximately 4 cm round extending up to, but not including the fasc ia. Findings: Same as specimen. Complications: None. Disposition: The patient was transferred to recovery room in good condition. Procedure In Detail: After informed consent was obtained, the patient was brought to the operating r oom, prepped and draped in the usual sterile fashion. After adequate anesthesia was achieved, I made a linear incision over the left of center midback for approximately 5 cm down through subcutaneous t issues. I then dissected circumferentially around a lipomatous mass, which found to have fibrous com ponents consistent with a fiber lipoma approximately 4 cm round. Using electrocautery, I nallely jones dissected this out and sent off for pathologic examination. The bed was then fulgurated with electrocautery for hemostasis. The wound was then copiously irrigated multiple times and suctioned o ut until completely clear. I then closed the wound with interrupted 2-0 nylon sutures in an interrup lincoln fashion and placed a Telfa wick in the center for drainage and a sterile dressing placed over top . The patient tolerated the procedure without evidence of complication and transferred to PACU in good condition. All counts were correct at the end of the case. ABI/MABEL Voice ID: [id number] Report ID: [id number]
[2020-08-06 09:50] VITALS: BP 109/70
[2020-08-06 09:53] VITALS: O2SAT 99
== END 2020-08-06 09:40 | disposition home or self-care (01) ==
LOC: OR 07:29
PROVIDERS: ATTEND Surgery
PROC: 0JB70ZZ Excision of Back Subcutaneous Tissue and Fascia, Open Approach (ICD-10-PCS; principal; 2020-08-06 08:30)
DX: D17.1 Benign lipomatous neoplasm of skin and subcutaneous tissue of trunk (principal); Z20.822 Contact with and (suspected) exposure to COVID-19
CPT/HCPCS: 82947 ×2; 88304; 11404; U0003; J2704; J2250; J3010; J0690; J7030; 88305

== ENCOUNTER 2022-04-14 13:47 | Emergency (ER) | payer OTHER ==
--- OUTSIDE RECORDS SUMMARY | 2022-04-14 13:50 | XMS REPORT | Continuity of Care Document ---
:[address] [facility] t Address [address] [place] [address] Care Team Providers Name Role Phone Parish Kumar Primary Care Physician Jona Bai Attending Clinician Unavailable Amber Peirson APRN Attending Clinician Luciana Barrett Attending Clinician Unavailable LUPE CHRISTOPHER Attending Clinician Unavailable Lupe Christopher MD Attending Clinician Matilda Vivar MA Attending Clinician Unavailable Payers Payer Name Policy Type Policy Number Effective Date Expiration Date S ource [employer] MEDICARE [id number] 2021 ADVANTAGE O 00:00:00 Problems Condition Condition Condition Status Onset Resolution Last Treating Co mments Source Name Details Category Date Date Treatment Clinician Date Cardiomyop Cardiomyop Disease Active U T athy, athy, 01-19 Health ischemic ischemic 00:00: 00 LBBB (left LBBB (left Disease Active U T bundle bundle 01-19 Health branch branch 00:00: block) block) 00 Congestive Congestive Disease Active U T heart heart 1-05 Health failure failure 00:00: with left with left 00 ventricula ventricula r systolic r systolic dysfunctio dysfunctio n n Atrial Atrial Disease Active [place] fibrillati fibrillati 10-01 He alth on with on with 00:00: rapid rapid 00 ventricula ventricula r response r response [id number] Presence Problem Comm on of Spirit automatic - [facility] ([facility] cardiac Medical defibrilla Center tor [id number] Paroxysmal Problem Co mmon atrial Spirit fibrillati - [facility] on [facility] [id number] Chronic Problem Commo n systolic Spirit (congestiv - [facility] e) heart failure [facility] [id number] Essential Problem Commo n (primary) Spirit hypertensi - [facility] on [facility] [id number] Presence Problem Comm on of cardiac Spirit pacemaker - [facility] [id number] Type 2 Problem Common diabetes Spirit mellitus - [facility] with [facility] [id number] Hypothyroi Problem Co mmon dism, Spirit unspecifie - [facility] d [facility] [id number] Other Problem Common allergic Spirit rhinitis - [facility] [id number] Mixed Problem Common hyperlipid Spirit emia - [facility] [id number] Unspecifie Problem Co mmon d systolic Spirit (congestiv - [facility] e) heart [facility] [id number] Atheroscle Problem Co mmon rosis of Spirit coronary - [facility] artery bypass [facility] graft(s), Medical unspecifie Center d, with other forms of angina pectoris [id number] Atheroscle Problem Co mmon rotic Spirit heart - [facility] disease of [facility] coronary Medical artery Center with other forms of angina pectoris Allergies, Adverse Reactions, Alerts Allergy Allergy Status Severity Reaction(s) Onset Inactive Treating Comm ents Source Name Type Date Date Clinician Tramadol Propensi Active [place] ty to 11-18 Health adverse 00:00: reaction 00 s Social History Social Habit Start Date Stop Date Quantity Comments Source History [facility] Health Alcohol Frequency History [facility] hospital Alcohol Std Drinks History Critical [facility] hospital Alcohol Binge History of Tobacco [facility] - Use [facility] Sex Assigned At [facility] kimmy - [facility] Exposure to 2022-01-09 2022-01-19 Not sure [place] [facility] SARS-CoV-2 (event) 00:00:00 14:14:00 Alcohol intake 2022-01-19 2022-01-19 [facility]er [facility] 00:00:00 00:00:00 of alcohol (finding) Tobacco use and 2021-12-18 2021-12-18 Former smokeless [facility] exposure 00:00:00 00:00:00 tobacco user Alcohol Comment 2021-12-18 2021-12-18 social [place] [facility] 00:00:00 00:00:00 Cigarettes smoked 2021-12-18 2021-12-18 [facility] current (pack per 00:00:00 00:00:00 day) - Reported Cigarette 2021-12-18 2021-12-18 [place] [facility] pack-years 00:00:00 00:00:00 Smoking Status Start Date Stop Date Source Former Smoker 2022-03-25 00:00:00 2022-03-25 00:00:00 Common S [facility] Medications Ordered Filled Start Stop Current Ordering Indication Dosage Frequency Signature Comments Components Source Medication Medication Date Date Medication? Clinician (SIG) Name Name co-enzyme Yes 30mg QD Take 30 mg UT Q-10 30 MG 8-16 by mouth 1 Hea lth capsule 14:31: (one) time 55 each day. Cholecalcif Yes 125ug QD Take 125 U T curtis 8-16 mcg by Health (Vitamin D) 14:31: mouth 1 125 MCG 55 (one) time (5000 UT) each day. capsule Multiple Yes 1{tbl} QD Take 1 UT Vitamin 8-16 tablet by Health (multivitam 14:31: mouth 1 in) tablet 55 (one) time each day. zinc Yes 50mg QD Take 50 mg UT gluconate 8-16 by mouth 1 Heal th 50 MG 14:29: (one) time tablet 50 each day. amiodarone Yes 200mg QD Take 200 UT (Pacerone) 8-16 mg by Health 200 MG 14:29: mouth 1 tablet 50 (one) time each day. ASPIRIN PO 0 Yes 81mg QD Take 81 mg U T 8-16 by mouth 1 Health 14:29: (one) time 50 each day. atorvastati Yes 40mg QD Take 40 mg UT n (Lipitor) 8-16 by mouth 1 He alth 40 MG 14:29: (one) time tablet 50 each day. carvedilol 0 Yes 3.125mg Take 3.125 UT (Coreg) 8-16 mg by Health 3.125 MG 14:29: mouth in tablet 50 the morning and 3.125 mg in the evening. Take with meals. sacubitril- 2021-0 Yes 1{tbl} Q.5D Take 1 UT valsartan 8-16 tablet by Healt h (Entresto) 14:29: mouth 2 97-103 MG 50 (two) tablet times a day. fluticasone 2021-0 Yes 1{spray QD Administer UT (Flonase) 8-16 } 1 spray Health 50 MCG/ACT 14:29: into each nasal spray 50 nostril 1 (one) time each day. Shake gently. Before first use, prime pump. After use, clean tip and replace cap. furosemide 2021-0 Yes 40mg QD Take 40 mg U T (Lasix) 40 8-16 by mouth 1 Hea lth MG tablet 14:29: (one) time 50 each day. gabapentin 0 Yes 300mg Q.[id number] Take 300 UT (Neurontin) 8-16 [id number] mg by H ealth 300 MG 14:29: 3D mouth in capsule 50 the morning and 300 mg at noon and 300 mg in the evening. levothyroxi 0 Yes 75ug Take 75 UT ne 8-16 mcg by Health (Tirosint) 14:29: mouth 1 75 MCG 50 (one) time capsule each day before breakfast. ALPRAZolam 2021-0 Yes .25mg QD Take 0.25 U T (Xanax) 8-16 mg by Health 0.25 MG 14:29: mouth at tablet 50 night if needed for anxiety. rivaroxaban 2021-0 Yes 15mg Take 15 mg UT (Xarelto) 8-16 by mouth 1 Heal th 15 MG 14:29: (one) time tablet 50 each day with dinner. Take with food. semaglutide 2021-0 Yes .5mg Inject 0.5 UT (Ozempic, 8-16 mg under Health 0.25 or 0.5 14:29: the skin 1 MG/DOSE,) 2 50 (one) time MG/1.5ML per week. solution pen-injecto r liraglutide 2021-0 2022- No 1.2mg QD Inject 1.2 UT (Victoza) 8-16 08-[facility] MG/3ML 14:29: 00:00 the skin 1 injection 50 :00 (one) time each day. nitroglycer 2021-[address] 0.4 U T in 7-15 mg under Health (Nitrostat) 10:22: the tongue 0.4 MG SL 07 every 5 tablet (five) minutes if needed for chest pain. amiodarone 2021-0 Yes 200mg QD Take 200 UT (Pacerone) 7-15 mg by Health 200 MG 10:22: mouth 1 tablet 07 (one) time each day. ASPIRIN PO 2021-0 Yes 81mg QD Take 81 mg U T 7-15 by mouth 1 Health 10:22: (one) time 07 each day. atorvastati 2021-0 Yes 40mg QD Take 40 mg UT n (Lipitor) 7-15 by mouth 1 He alth 40 MG 10:22: (one) time tablet 07 each day. carvedilol 2021-0 Yes 3.125mg Take 3.125 UT (Coreg) 7-15 mg by Health 3.125 MG 10:22: mouth in tablet 07 the morning and 3.125 mg in the evening. Take with meals. sacubitril- 2021-0 Yes 1{tbl} Q.5D Take 1 UT valsartan 7-15 tablet by [facility] (Entresto) 10:22: mouth 2 97-103 MG 07 (two) tablet times a day. fluticasone 2021-0 Yes 1{spray QD Administer UT (Flonase) 7-15 } 1 spray Health 50 MCG/ACT 10:22: into each nasal spray 07 nostril 1 (one) time each day. Shake gently. Before first use, prime pump. After use, clean tip and replace cap. furosemide 2-0 Yes 40mg QD Take 40 mg U T (Lasix) 40 7-15 by mouth 1 Hea lth MG tablet 10:22: (one) time 07 each day. gabapentin 2021-0 Yes 300mg Q.[id number] Take 300 UT (Neurontin) 7-15 [id number] mg by H ealth 300 MG 10:22: 3D mouth in capsule 07 the morning and 300 mg at noon and 300 mg in the evening. levothyroxi 2021-0 Yes 75ug Take 75 UT ne 7-15 mcg by Health (Tirosint) 10:22: mouth 1 75 MCG 07 (one) time capsule each day before breakfast. nitroglycer 2021-[address] 0.4 U T in 7-15 mg under Health (Nitrostat) 10:22: the tongue 0.4 MG SL 07 every 5 tablet (five) minutes if needed for chest pain. liraglutide 2021-0 Yes 1.2mg QD Inject 1.2 UT (Victoza) 7-15 mg under Health 18 MG/3ML 10:22: the skin 1 injection 07 (one) time each day. ALPRAZolam 2021-0 Yes .25mg QD Take 0.25 U T (Xanax) 7-15 mg by Health 0.25 MG 10:22: mouth at tablet 07 night if needed for anxiety. rivaroxaban 2021-0 Yes 15mg Take 15 mg UT (Xarelto) 7-15 by mouth 1 Heal th 15 MG 10:22: (one) time tablet 07 each day with dinner. Take with food. semaglutide 0 Yes .5mg Inject 0.5 UT (Ozempic, 7-15 mg under Health 0.25 or 0.5 10:22: the skin 1 MG/DOSE,) 2 07 (one) time MG/1.5ML per week. solution pen-injecto r zinc 2021-0 Yes 50mg QD Take 50 mg UT gluconate 7-15 by mouth 1 Heal th 50 MG 10:22: (one) time tablet 07 each day. Atorvastati Atorvastati No 1{table QD Atorvastat n Calcium n Calcium t} in Calcium 40 MG 40 MG 40 MG Gabapentin Gabapentin No 1{capsu QD Gabapentin 300 MG 300 MG le} 300 MG Levothyroxi Levothyroxi No QD Levothyrox ne Sodium ne Sodium ine Sodium 50 MCG 50 MCG 50 MCG Ozempic Ozempic No Ozempic (0.25 or (0.25 or (0.25 or 0.5 0.5 0.5 MG/DOSE) 2 MG/DOSE) 2 MG/DOSE) 2 MG/1.5ML MG/1.5ML MG/1.5ML Amiodarone Amiodarone No 1{table QD Amiodarone HCl 200 MG HCl 200 MG t} HCl 200 MG Aspirin 81 Aspirin 81 No 1{table QD Aspirin 81 81 MG 81 MG t} 81 MG Entresto Entresto No 1{table BID Entresto 97-103 MG 97-103 MG t} 97-103 MG Xarelto 15 Xarelto 15 No 1{table QD Xarelto 15 MG MG t_with_ MG food} Carvedilol Carvedilol No 1{table BID Carvedilol 3.125 MG 3.125 MG t_with_ 3.125 MG food} Furosemide Furosemide No 1{table QD Furosemide 40 MG 40 MG t} 40 MG Vital Signs Vital Name Observation Time Observation Value Comments Source height 2022-03-25 09:00:00 64 [in_i] [facility] weight 2022-03-25 09:00:00 148 [lb_av] [facility] temperature 2022-03-25 09:00:00 97.6 [degF] [facility] bmi 2022-03-25 09:00:00 25.4 kg/m2 [facility] oximetry 2022-03-25 09:00:00 100 % [facility] respiratory rate 2022-03-25 09:00:00 18 /min Comm on [facility] - [facility] blood pressure 2022-03-25 09:00:00 102 mm[Hg] [facility] - systolic [facility] blood pressure 2022-03-25 09:00:00 59 mm[Hg] [facility] - diastolic [facility] Systolic blood 2022-01-19 19:27:00 117 mm[Hg] [facility] pressure Diastolic blood 2022-01-19 19:27:00 71 mm[Hg] [facility] pressure Heart rate 2022-01-19 19:27:00 65 /min [facility] Body height 2022-01-19 19:27:00 163.8 cm [facility] Body weight 2022-01-19 19:27:00 69.854 kg [facility] h BMI 2022-01-19 19:27:00 26.03 kg/m2 [facility] Procedures Procedure Date / Time Performed Performing Clinician [facility] e ECG 12-LEAD 2022-01-19 19:33:00 Amber Pierson [place] [facility] Encounters Start End Encounter Admission Attending Care Care Encounter Source Date/Time Date/Time Type Type Clinicians Facility Department ID 2022-03-29 Outpatient [facility] [id number] [place] 14:10:34 [id number] Health 2022-03-25 Outpatient Bai, STLMLC [facility] [id number] Common 08:54:09 [facility] [id number] Spirit [facility] 2022-03-25 2022-03-25 [facility] [id number] Co mmon 00:00:00 00:00:00 VISIT NEW [facility] it PT LEVEL 4 [facility] 2022-01-19 2022-01-19 Office LEIF Pierson [facility] [id number] [place] 14:30:00 15:07:40 Visit Amber ROHIT [id number] H [facility]alt [place] 2 [id number] 2 2021-12-31 2021-12-31 Telephone Luciana Flores [facility] [id number] [place] 00:00:00 00:00:00 Luciana Flores [facility] [id number] Health [facility] [place] [id number] 3 2021-12-28 2021-12-29 Outpatient [facility] 10:13:00 09:50:00 LUPE 2021-12-18 2021-12-18 Office LEIF Christopher 6400 [id number] [place] 11:00:00 12:55:[address] [id number] Health [id number] 1 2021-11-18 2021-11-18 Abstract Matilda Vivar [facility] [id number] [place] 00:00:00 00:00:00 Matilda Vivar [facility] [id number] Health [place] 2 [id number] 1 Results Test Description Test Time Test Comments Results Result Comments Source ECG 12 lead 2022-01-19 19:33:00 Test Item Value Reference Range Interpretation Comme nts Lab Interpretation (test code = 65154-5) Abnormal [facility]
[2022-04-14 14:05] LABS: Urine Blood 3+ (Negative); Urine Glucose Negative (Negative); Urine Protein Negative (Negative); Urine Specific Gravity 1.015 (1.005-1.030); Urine pH 5.5 (5.0-7.0)
[2022-04-14] MEDS ORDERED: CEFTRIAXONE 1000 MG/VIAL ONE (15:01)
[2022-04-14] MEDS ORDERED: WATER FOR INJ,STERILE 10 ML ONE (15:03)
[2022-04-14 15:20] LABS: Urine Bacteria <20 /HPF (<20); Urine Mucus Slight /HPF (None Seen); Urine RBC >50 /HPF (None Seen)
[2022-04-14] MEDS ORDERED: NA CHLORIDE 0.9% 1,000 ML ONE (16:29)
[2022-04-14 16:45] LABS: Absolute Lymphocytes (CBC) 1.5 K/uL (0.7-4.9); Hematocrit 41.9 % (36.0-45.0); Lymphocytes % 21.4 % (15.3-44.8); MCV 91.1 fL (80-100); MPV 8.7 fL (7.6-11.3)
[2022-04-14 16:54] LABS: Potassium 4.3 mmol/L (3.5-5.1)
--- NOTE | 2022-04-14 18:16 | ER ---
Nurse's Notes [facility] Name: Vane Lee Age: 61 yrs Sex: Female : 1960 Arrival Date: 04/14/2022 Time: 13:50 Bed 24 Private MD: Evelyn Hamilton; Jona Bai Diagnosis: Hematuria, unspecified Presentation: 04/14 13:54 Chief complaint: Patient states: Blood in urine since last night. Has had foul smelling ll1 urine since Tuesday night. No pain. Coronavirus screen: Vaccine status: Patient reports being unvaccinated. Client denies travel out of the [place] in the last 14 days. At this time, the client does not indicate any symptoms associated with coronavirus-19. Ebola Screen: Patient denies travel to an Ebola-affected area in the 21 days before illness onset. Initial Sepsis Screen: Does the patient meet any 2 criteria? No. Patient's initial sepsis screen is negative. Does the patient have a suspected source of infection? Yes: Dysuria/Frequency/Urgency/UTI. Risk Assessment: Do you want to hurt yourself or someone else? Patient reports no desire to harm self or others. 13:54 Acuity: LUIS 3 ll1 13:54 Method Of Arrival: Ambulatory ll1 13:58 Onset of symptoms was April 11, 2022. 1 Triage Assessment: 13:54 General: Appears in no apparent distress. Behavior is calm, cooperative, appropriate ll1 for age. Neuro: No deficits noted. Cardiovascular: No deficits noted. : Reports blood in urine. Historical: - Allergies: 13:53 No Known Allergies; ll1 - Home Meds: 18:23 alprazolam 0.25 mg Oral tab 1 tab as needed [Active]; amiodarone 200 mg Oral tab 1 tab eh3 once daily [Active]; aspirin 81 mg Oral TbEC 1 tab once daily [Active]; atorvastatin 40 mg Oral tab 1 tab once daily [Active]; carvedilol 6.25 mg Oral tab 1 tab 2 times per day [Active]; Entresto 49-51 mg Oral tab 1 tab 2 times per day [Active]; furosemide 40 mg Oral tab 1 tab as needed [Active]; gabapentin 300 mg Oral cap 1 cap 3 times per day [Active]; levothyroxine 50 mcg tab 1 tab once daily [Active]; ozempic 0.5 mg WEEKLY [Active]; Xarelto 15 mg Oral tab daily [Active]; - PMHx: 13:53 Hypertension; High Cholesterol; Atrial Fib; Anxiety; Hypothyroidism; ll1 - PSHx: 13:57 Pacemaker; ll1 - Immunization history:: Client reports having NOT received the Covid vaccine. - Social history:: Smoking status: Patient denies any tobacco usage or history of. Screenin:02 Abuse screen: Denies threats or abuse. Denies injuries from another. Nutritional eh3 screening: No deficits noted. Tuberculosis screening: No symptoms or risk factors identified. Fall Risk None identified. Assessment: 14:02 General: Appears in no apparent distress. comfortable, Behavior is calm, cooperative, eh3 appropriate for age. Pain: Complains of pain in pelvis Pain does not radiate. Pain currently is 5 out of 10 on a pain scale. Quality of pain is described as burning, Pain began suddenly, 30 min ago. Neuro: Level of Consciousness is awake, alert, obeys commands, Oriented to person, place, time, situation. Cardiovascular: Capillary refill < 3 seconds Patient's skin is warm and dry. Respiratory: Airway is patent Respiratory effort is even, unlabored, Respiratory pattern is regular, symmetrical. GI: No signs and/or symptoms were reported involving the gastrointestinal system. Abdomen is round non-distended. : Urine is blood tinged, Reports pain with urination, started just now when she provided a urine sample, foul smelling urine since Tuesday, and blood tinged urine since last night. EENT: No deficits noted. No signs and/or symptoms were reported regarding the EENT system. Derm: No deficits noted. No signs and/or symptoms reported regarding the dermatologic system. Musculoskeletal: No signs and/or symptoms reported regarding the musculoskeletal system. Circulation, motion, and sensation intact. Range of motion: intact in all extremities. 15:00 Reassessment: Patient and/or family updated on plan of care and expected duration. Pain eh3 level reassessed. Patient is alert, oriented x 3, equal unlabored respirations, skin warm/dry/pink. 16:00 Reassessment: Patient and/or family updated on plan of care and expected duration. Pain eh3 level reassessed. Patient is alert, oriented x 3, equal unlabored respirations, skin warm/dry/pink. 17:00 Reassessment: Patient and/or family updated on plan of care and expected duration. Pain eh3 level reassessed. Patient is alert, oriented x 3, equal unlabored respirations, skin warm/dry/pink. 18:00 Reassessment: Patient and/or family updated on plan of care and expected duration. Pain eh3 level reassessed. Patient is alert, oriented x 3, equal unlabored respirations, skin warm/dry/pink. Vital Signs: 13:58 BP 95 / 65; Pulse 71; Resp 17; Temp 98.4; Pulse Ox 98% on R/A; Weight 65.77 kg; Height ll1 5 ft. 4 in. (162.56 cm); Pain 0/10; 14:03 BP 81 / 60; Pulse 65; Resp 16; Temp 98.5(O); Pulse Ox 98% on R/A; eh3 15:00 BP 84 / 58; Pulse 60; Resp 18; Pulse Ox 97% on R/A; eh3 16:00 BP 89 / 66; Pulse 64; Resp 16; Pulse Ox 98% on R/A; eh3 17:00 BP 100 / 63; Pulse 60; Resp 16; Pulse Ox 98% on R/A; eh3 18:00 BP 94 / 62; Pulse 59; Resp 16; Pulse Ox 98% on R/A; eh3 13:58 Body Mass Index 24.89 (65.77 kg, 162.56 cm) ll1 ED Course: 13:50 Patient arrived in ED. as 13:50 Jona Bai DO is Private Physician. as 13:50 Evelyn Hamilton MD is Private Physician. as 13:54 Triage completed. ll1 13:54 Arm band placed on. ll1 14:01 Halle Clay, RN is Primary Nurse. eh3 14:02 Patient has correct armband on for positive identification. Bed in low position. Call eh3 light in reach. Side rails up X2. Pulse ox on. NIBP on. Door closed. Noise minimized. Lights dimmed. Warm blanket given. 14:04 Ajay Villa NP is PHCP. pm1 14:04 Fabricio Frausto MD is Attending Physician. pm1 14:06 Urine Microscopic Only Sent. eh3 16:20 Inserted saline lock: 20 gauge in right antecubital area, using aseptic technique. eh3 Blood collected. 18:16 Ruddy Espinoza MD is Referral Physician. pm1 18:23 No provider procedures requiring assistance completed. 3 18:52 IV discontinued, intact, bleeding controlled, No redness/swelling at site. Pressure eh3 dressing applied. Administered Medications: 15:11 Drug: Rocephin (cefTRIAXone) 1 grams Route: IM; Site: right ventrogluteal; 3 16:10 Follow up: Response: No adverse reaction eh3 17:28 Follow up: Response: No adverse reaction 3 16:34 Drug: NS 0.9% 1000 ml Route: IV; Rate: 1000 ml; Site: right antecubital; eh3 18:22 Follow up: IV Status: Completed infusion; IV Intake: 1000ml 3 Medication: 18:23 VIS not applicable for this client. eh3 Intake: 18:22 IV: 1000ml; Total: 1000ml. 3 Outcome: 18:16 Discharge ordered by . pm1 18:53 Discharged to home ambulatory. eh3 18:53 Condition: stable 18:53 Discharge instructions given to patient, Instructed on discharge instructions, follow up and referral plans. medication usage, Demonstrated understanding of instructions, follow-up care, medications, Prescriptions given X 1. 19:01 Patient left the ED. 3 Signatures: Mackenzie Aquino Patrick, NP COMMUNITY DEVELOPMENT OFFICER pm1 Naz Delatorre RN RN 1 Halle Clay RN RN 3 Corrections: (The following items were deleted from the chart) 13:57 13:54 Chief complaint: Patient states: Blood in urine [place] [address] 13:58 13:53 Immunization history: Client reports receiving the 2nd dose of the Covid vaccine, [place] [address] 13:59 13:54 Coronavirus screen: Vaccine status: Patient reports receiving the 2nd dose of the ll1 covid vaccine. Client denies travel out of the [place] in the last 14 days. At this time, the client does not indicate any symptoms associated with coronavirus-19. [facility] 13:59 13:54 Chief complaint: Patient states: Blood in urine [place] [address] 14:11 14:02 Pain: Denies pain. 3 [facility] 14:11 14:02 : Urine is blood tinged, Reports blood tinged urine since yesterday 3 3 14:12 14:11 BP 81 / 60; Pulse 65bpm; Resp 16bpm; Pulse Ox 98% RA; Temp 98.5F Oral; 3 3
--- NOTE | 2022-04-14 18:16 | EDPHYS ---
Physician Documentation [facility] Name: Vane Lee Age: 61 yrs Sex: Female : 1960 Arrival Date: 04/14/2022 Time: 13:50 Bed 24 Private MD: Dejon Hamilton Mitesh ED Physician Fabricio Frausto HPI: 04/14 14:14 This 61 yrs old Female presents to ER via Ambulatory with complaints of Urinary Problem pm1 - blood. 14:14 The patient presents with urinary symptoms, dysuria, hematuria. Onset: The pm1 symptoms/episode began/occurred 3 day(s) ago. Modifying factors: The symptoms are alleviated by nothing, the symptoms are aggravated by urinating. Associated signs and symptoms: Pertinent negatives: diarrhea, fever, nausea, vomiting. Severity of symptoms: in the emergency department the symptoms have improved, decreased amount of hematuria from this AM. The patient has experienced similar episodes in the past, several times, today's symptoms are similar, to previous UTI. The patient has not recently seen a physician. Historical: - Allergies: 13:53 No Known Allergies; ll1 - Home Meds: 18:23 alprazolam 0.25 mg Oral tab 1 tab as needed [Active]; amiodarone 200 mg Oral tab 1 tab eh3 once daily [Active]; aspirin 81 mg Oral TbEC 1 tab once daily [Active]; atorvastatin 40 mg Oral tab 1 tab once daily [Active]; carvedilol 6.25 mg Oral tab 1 tab 2 times per day [Active]; Entresto 49-51 mg Oral tab 1 tab 2 times per day [Active]; furosemide 40 mg Oral tab 1 tab as needed [Active]; gabapentin 300 mg Oral cap 1 cap 3 times per day [Active]; levothyroxine 50 mcg tab 1 tab once daily [Active]; ozempic 0.5 mg WEEKLY [Active]; Xarelto 15 mg Oral tab daily [Active]; - PMHx: 13:53 Hypertension; High Cholesterol; Atrial Fib; Anxiety; Hypothyroidism; ll1 - PSHx: 13:57 Pacemaker; ll1 - Immunization history:: Client reports having NOT received the Covid vaccine. - Social history:: Smoking status: Patient denies any tobacco usage or history of. ROS: 14:14 Positive for urinary symptoms, urinary frequency, hematuria, burning with urination, pm1 Negative for flank pain. 14:14 Constitutional: Negative for fever, chills, and weight loss, Cardiovascular: Negative for chest pain, palpitations, and edema, Respiratory: Negative for shortness of breath, cough, wheezing, and pleuritic chest pain. 14:14 Back: Negative for injury and pain, MS/Extremity: Negative for injury and deformity, Skin: Negative for injury, rash, and discoloration, Neuro: Negative for headache, weakness, numbness, tingling, and seizure. 14:14 Abdomen/GI: Positive for abdominal pain, of the suprapubic area, Negative for nausea, vomiting, and diarrhea. 14:14 All other systems are negative. Exam: 14:14 Constitutional: This is a well developed, well nourished patient who is awake, alert, pm1 and in no acute distress. Head/Face: Normocephalic, atraumatic. 14:14 Back: No spinal tenderness. No costovertebral tenderness. Full range of motion. Skin: Warm, dry with normal turgor. Normal color with no rashes, no lesions, and no evidence of cellulitis. MS/ Extremity: Pulses equal, no cyanosis. Neurovascular intact. Full, normal range of motion. 14:14 Eyes: Exam is negative for acute changes, Periorbital structures: no acute changes, Extraocular movements: no acute changes, Conjunctiva: no acute changes, no injection. 14:14 ENT: Exam is negative for acute changes, Mouth: no acute changes, Lips: normal, moist, Oral mucosa: normal, pink and intact, moist. 14:14 Cardiovascular: Exam negative for acute changes, Rate: normal, Rhythm: regular, Pulses: no pulse deficits are appreciated. 14:14 Respiratory: Exam negative for acute changes, respiratory distress, shortness of breath, Breath sounds: are clear throughout. 14:14 Abdomen/GI: Exam negative for acute changes, Inspection: abdomen appears normal, Palpation: abdomen is soft and non-tender, in all quadrants. 14:14 Neuro: Exam negative for acute changes, Orientation: is normal, Mentation: is normal, Motor: is normal, moves all fours. Vital Signs: 13:58 BP 95 / 65; Pulse 71; Resp 17; Temp 98.4; Pulse Ox 98% on R/A; Weight 65.77 kg; Height ll1 5 ft. 4 in. (162.56 cm); Pain 0/10; 14:03 BP 81 / 60; Pulse 65; Resp 16; Temp 98.5(O); Pulse Ox 98% on R/A; eh3 15:00 BP 84 / 58; Pulse 60; Resp 18; Pulse Ox 97% on R/A; eh3 16:00 BP 89 / 66; Pulse 64; Resp 16; Pulse Ox 98% on R/A; eh3 17:00 BP 100 / 63; Pulse 60; Resp 16; Pulse Ox 98% on R/A; eh3 18:00 BP 94 / 62; Pulse 59; Resp 16; Pulse Ox 98% on R/A; eh3 13:58 Body Mass Index 24.89 (65.77 kg, 162.56 cm) ll1 MDM: 14:14 Patient medically screened. pm1 16:00 Data reviewed: vital signs. pm1 18:15 Counseling: I had a detailed discussion with the patient and/or guardian regarding: the pm1 historical points, exam findings, and any diagnostic results supporting the discharge/admit diagnosis, lab results, the need for outpatient follow up, to return to the emergency department if symptoms worsen or persist or if there are any questions or concerns that arise at home. 11 14:05 Order name: Urine Microscopic Only; Complete Time: 15:31 pm1 04/14 14:06 Order name: Urine Dipstick-Ancillary; Complete Time: 14:14 EDMS 04/14 16:14 Order name: CBC with Diff; Complete Time: 17:28 pm1 04/14 16:14 Order name: BMP; Complete Time: 17:28 pm1 04/14 14:05 Order name: Urine Dipstick-Ancillary (obtain specimen); Complete Time: 14:06 pm1 04/14 16:14 Order name: IV Saline Lock; Complete Time: 16:16 pm1 Administered Medications: 15:11 Drug: Rocephin (cefTRIAXone) 1 grams Route: IM; Site: right ventrogluteal; eh3 16:10 Follow up: Response: No adverse reaction eh3 17:28 Follow up: Response: No adverse reaction eh3 16:34 Drug: NS 0.9% 1000 ml Route: IV; Rate: 1000 ml; Site: right antecubital; eh3 18:22 Follow up: IV Status: Completed infusion; IV Intake: 1000ml eh3 Disposition Summary: 04/14/22 18:16 Discharge Ordered Location: Home pm1 Problem: new pm1 Symptoms: have improved pm1 Condition: Stable pm1 Diagnosis - Hematuria, unspecified pm1 Followup: pm1 - With: Emergency Department - When: As needed - Reason: Worsening of condition Followup: pm1 - With: Ruddy Espinoza MD - When: 2 - 3 days - Reason: Recheck today's complaints, Continuance of care, Re-evaluation by your physician Discharge Instructions: - Discharge Summary Sheet pm1 - Hematuria, Adult pm1 - Urinary Tract Infection, Adult pm1 Forms: - Medication Reconciliation Form pm1 - Thank You Letter pm1 - Antibiotic Education pm1 - Prescription Opioid Use pm1 Prescriptions: - Bactrim DS 800-160 mg Oral Tablet - take 1 tablet by ORAL route every 12 hours for 10 days; 20 tablet; Refills: 0, pm1 Product Selection Permitted Signatures: Dispatcher [employer] Ajay Eason NP [employer]UM[employer]LLIGENCE pm1 Naz Delatorre, RN RN 1 Halle Clay RN RN eh3 Corrections: (The following items were deleted from the chart) 13:58 13:53 Immunization history: Client reports receiving the 2nd dose of the Covid vaccine, ll1 ll1
[2022-04-14 19:45] VITALS: TEMP 98.5
[2022-04-14 19:48] VITALS: O2SAT 98
[2022-04-14 19:50] VITALS: BP 94/62
== END 2022-04-14 19:01 | disposition home or self-care (01) ==
LOC: ER 13:47
DX: R31.9 Hematuria, unspecified (principal); I10 Essential (primary) hypertension; I48.91 Unspecified atrial fibrillation; Z79.01 Long term (current) use of anticoagulants; Z79.82 Long term (current) use of aspirin; Z95.0 Presence of cardiac pacemaker
CPT/HCPCS: 96361; 85025; 80048; 36415; 96360; 96372; 99284; J7030; 81003; 81015

== ENCOUNTER 2025-03-25 11:27 | Observation (INO) | payer OTHER ==
--- OUTSIDE RECORDS SUMMARY | 2025-03-25 11:38 | XMS REPORT | Continuity of Care Document ---
Author Name Unknown Address [address] [facility] [address] [place] [address] [facility] [address] [facility] [address] [place] [address] Care Team Providers Care Pattern Developer Name Role Phone Louis Cruz Primary Care Physician [phone] Jona Bai Attending Clinician Unavailable MOUNA BOSCH Attending Clinician Unavailable FABIANO WILLIAM Attending Clinician FABIANO Mauricio Attending Clinician LOUIS Rainey Attending Clinician Unavailable JW SPAIN Attending Clinician Louis Yang Attending Clinician [phone] Shannan Suh Attending Clinician + [phone] SADIE DUKES Attending Clinician Unavailable Doctor Unassigned, [place] Attending Clinician U Sadie Matt MD Attending Clinician [phone] Fabiano William MD Attending Clinician + [phone] Amber Pierson APRN Attending Clinician [phone] Luciana Barrett Attending Clinician UnavailLUPE Bianchi Attending Clinician Lupe Naylor MD Attending Clinician [phone] Matilda Vivar MA Attending Clinician Brii cruz Payers Payer Name Policy Type Policy Number Effective Date Expirati on Date Source [employer] MEDICARE ADVANTAGE O [id number] 2021 00:00:00 [employer] GOLD PLS [facility] [id number] 2021 00:00:00 MED[place] [id number] 2024 00:00:00 Problems Condition Name Condition Details Condition Category Status Onset Date Resolution Date Last Treatment Date Treating Clinician Comments Source Essential (primary) hypertensi on Essential (primary) hypertensi on Disease Active 12-21 00:00: 00 [facility] Hypothyroi dism, unspecifie d Hypothyroi dism, unspecifie d Disease Active 12-21 00:00: 00 [facility] Mixed hyperlipid emia Mixed hyperlipid emia Disease Active 12-21 00:00: 00 [facility] Other allergic rhinitis Other allergic rhinitis Disease Active 12-21 00:00: 00 [facility] Paroxysmal atrial fibrillati on Paroxysmal atrial fibrillati on Disease Active 12-21 00:00: 00 [facility] Presence of automatic (implantab le) cardiac defibrilla tor Presence of automatic (implantab le) cardiac defibrilla tor Disease Active 12-21 00:00: 00 [facility] Presence of cardiac pacemaker Presence of cardiac pacemaker Disease Active 12-21 00:00: 00 [facility] Stage 3 chronic kidney disease Stage 3 chronic kidney disease Disease Active 12-21 00:00: 00 [facility] 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 Disease Active 12-21 00:00: 00 [facility] Type 2 diabetes mellitus with hyperglyce shannon Type 2 diabetes mellitus with hyperglyce shannon Disease Active 12-21 00:00: 00 [facility] 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 Disease Active 12-21 00:00: 00 [facility] Unspecifie d systolic (congestiv e) heart failure Unspecifie d systolic (congestiv e) heart failure Disease Active 12-21 00:00: 00 [facility] Atheroscle rosis of coronary artery bypass graft(s), unspecifie d, with other forms of angina pectoris Atheroscle rosis of coronary artery bypass graft(s), unspecifie d, with other forms of angina pectoris Disease Active 12-21 00:00: 00 [facility] Atheroscle rotic heart disease of [place] coronary artery with other forms of angina pectoris Atheroscle rotic heart disease of [place] coronary artery with other forms of angina pectoris Disease Active 12-21 00:00: 00 [facility] Bladder spasm Bladder spasm Disease Active 12-21 00:00: 00 [facility] Cardiomyop athy, ischemic Cardiomyop athy, ischemic Disease Active 01-19 00:00: 00 [facility] LBBB (left bundle branch block) LBBB (left bundle branch block) Disease Active 01-19 00:00: 00 [facility] Chronic systolic heart failure Chronic systolic heart failure Disease Active 01-19 00:00: 00 [facility] Congestive heart failure with left ventricula r systolic dysfunctio n Congestive heart failure with left ventricula r systolic dysfunctio n Disease Active 06-10 00:00: 00 [facility] CAD (coronary artery disease) of artery bypass graft CAD (coronary artery disease) of artery bypass graft Disease Active 06-10 00:00: 00 [facility] Atrial fibrillati on with rapid ventricula r response Atrial fibrillati on with rapid ventricula r response Disease Active 10-01 00:00: 00 [facility] [id number] Presence of automatic (implantab le) cardiac defibrilla tor Problem [facility] [id number] Essential (primary) hypertensi on Problem [facility] [id number] Type 2 diabetes mellitus with hyperglyce shannon Problem [facility] [id number] Hypothyroi dism, unspecifie d Problem [facility] [id number] Type 2 diabetes mellitus with other diabetic kidney complicati on Problem [facility] [id number] Unspecifie d systolic (congestiv e) heart failure Problem [facility] Allergies, Adverse Reactions, Alerts Allergy Name Allergy Type Status Severity Reaction(s) Onset Date Inactive Date Treating Clinician Comments Source Tramadol Allergy to substanc e Active Other 11-18 00:00: 00 [facility] Tramadol Propensi ty to adverse reaction s Active 11-18 00:00: 00 [facility] TRAMADOL DRUG INGREDI Active N/V 11-18 00:00: 00 [facility] Tramadol Drug Allergy Active Nausea and/or Vomiting 11-18 00:00: 00 [facility] NO KNOWN ALLERGIE S Drug Class Active [facility] Social History Social Habit Start Date Stop Date Quantity Comments Source History of tobacco use Cigarette Smoker [facility] History SDOH Alcohol Std Drinks [facility] History SDOH Alcohol Binge [facility] History of Social function 2024-12-21 00:00:00 2024-12-21 00:00:00 [facility] Alcoholic beverage intake 2024-09-27 00:00:00 2024-09-27 00:00:00 Current drinker of alcohol (finding) [facility] Alcohol intake 2023-02-17 00:00:00 2023-02-17 00:00:00 Current drinker of alcohol (finding) [facility] Exposure to SARS-CoV-2 (event) 2022-08-08 00:00:00 2022-08-18 09:38:00 Not sure [facility] Tobacco use and exposure 2021-12-18 00:00:00 2021-12-18 00:00:00 Former smokeless tobacco user [facility] Alcohol Comment 2021-12-18 00:00:00 2021-12-18 00:00:00 social [facility] Cigarettes smoked current (pack per day) - Reported 2021-12-18 00:00:00 2021-12-18 00:00:00 [facility] Cigarette pack-years 2021-12-18 00:00:00 2021-12-18 00:00:00 [facility] Sex 2021-11-11 16:29:38 2021-11-11 16:29:38 Female (finding) [facility] Sex assigned at 1960 00:00:00 1960 00:00:00 [facility] Smoking Status Start Date Stop Date Source Never Smoker [facility] Ex-smoker 2021-12-18 00:00:00 2021-12-18 00:00:00 [employer] Medications Ordered Medication Name Filled Medication Name Start Date Stop Date Current Medication? Ordering Clinician Indication Dosage Frequency Signature (SIG) Comments Components Source DROPSAFE ALCOHOL PREP PADS PadM 2024-06 14:58: 06 Yes as directed; Duration: 90 days [facility] furosemide 40 mg tablet 2024-06 14:58: 06 Yes TK 1 T PO QD [facility] nitroglycer in 0.4 mg sublingual tablet 2024-06 14:58: [address] 0.4 mg under the tongue every 5 (five) minutes if needed for chest pain. PRN [facility] XARELTO 15 mg tablet 2024-06 14:58: 06 Yes 15mg Take 1 tablet by mouth in the morning. [facility] ENTRESTO 97-103 mg tablet 2024-06 14:58: 06 Yes 1{tbl} Take 1 tablet by mouth in the morning and 1 tablet in the evening. [facility] co-enzyme Q-10 30 mg capsule 2024-06 14:58: 06 Yes Take 30 mg by mouth 1 (one) time each day. [facility] zinc gluconate 50 mg tablet 2024-06 14:58: 06 Yes Take 50 mg by mouth 1 (one) time each day. [facility] dapaglifloz in propanediol (FARXIGA) 10 mg tablet 2024-06 0 00:00: 00 Yes [id number] 10mg Take 1 tablet by mouth in the morning. [facility] promethazin e-dextromet horphan 6.25-15 mg/5 mL oral syrup 02-13 00:00: 00 Yes [id number] 5mL Take 5 mL by mouth 4 times daily as needed for Cough or Cold symptoms. [facility] benzonatate 200 mg capsule 02-13 00:00: 00 Yes [id number] 200mg Take 1 capsule by mouth 3 times daily as needed for Cough. [facility] albuterol sulfate HFA 90 mcg/actuati on aerosol inhaler 02-13 00:00: 00 Yes [id number] 2{puff} Inhale 2 puffs every 6 hours as needed for Wheezing or Shortness of Breath. [facility] amoxicillin -pot clavulanate 875-125 mg per tablet 02-13 00:00: 00 02-21 04:59 :00 Yes [id number] 1{tbl} Take 1 tablet by mouth in the morning and 1 tablet in the evening. Do all this for 7 days. [facility] predniSONE 20 mg tablet 02-13 00:00: 00 02-19 04:59 :00 Yes [id number] 20mg Take 1 tablet by mouth in the morning for 5 days. [facility] TRUEPLUS LANCETS 33 gauge Misc 01-13 00:00: 00 Yes [facility] levothyroxi ne 88 mcg tablet 12-21 12:06: 13 Yes Take by mouth. [facility] dapaglifloz in propanediol (FARXIGA) 5 mg tablet 12-21 00:00: 00 03-14 00:00 :00 No [id number] 5mg Take 1 tablet by mouth in the morning. [facility] triamcinolo ne acetonide (KENALOG) injection 20 mg 10-24 19:00: 00 10-24 18:20 :00 No [id number] 20mg 20 mg, Intramuscu lar, ONCE, 1 dose, On Tue10/24/24 at 1400, Routine [facility] Ozempic, 1 MG/DOSE, 4 MG/3ML solution pen-injecto r 09-05 00:00: 00 Yes 1mg Inject 1 mg under the skin 1 (one) time per week. [facility] aspirin 81 mg chewable tablet 2023-06 10:06: 57 Yes 1 tablet Orally Once a day [facility] levothyroxi ne 75 mcg tablet 2023-06 10:06: 33 Yes 1 tablet in the morning on an empty stomach Orally Once a day for 90 days [facility] semaglutide (OZEMPIC) 0.25 mg or 0.5 mg(2 mg/1.5 mL) PnIj 2023-06 10:06: 09 12-21 00:00 :00 No .5mg inject 0.5 mg under the skin. [facility] KERENDIA 10 mg Tab 2023-06 09:52: 01 Yes 1 tablet Orally Once a day for 90 days [facility] fluticasone propionate 50 mcg/actuati on nasal spray 2023-06 09:52: 01 03-14 00:00 :00 No 1{spray } Use 1 [place] in each nostril. [facility] dapaglifloz in propanediol 5 mg tablet 2023-06 09:52: 01 03-14 00:00 :00 No 5mg Take 1 tablet by mouth. [facility] atorvastati n 40 mg tablet 2023-06 09:33: 57 Yes 1 tablet Orally Once a day for 90 days [facility] Cholecalcif curtis, Vitamin D3, 125 mcg (5,000 unit) capsule 2023-06 09:33: 57 Yes 125ug Take 125 mcg by mouth. [facility] TRUE METRIX GLUCOSE TEST STRIP strip 2023-06 09:33: 57 Yes TEST ONE TIME DAILY for 90 [facility] TRUE METRIX GLUCOSE TEST STRIP strip 2023-06 09:33: 57 Yes TEST ONE TIME DAILY for 90 [facility] carvediloL 3.125 mg tablet 2023-06 09:33: 57 12-21 00:00 :00 No 3.125mg Take 1 tablet by mouth. [facility] Estradiol (VAGIFEM) 10 mcg tablet 2023-06 00:00: 00 Yes [id number] 10ug Insert 1 tablet into vagina 2 (two) times per week. [facility] semaglutide (OZEMPIC) 1 mg/dose (4 mg/3 mL) PnIj 01-03 00:00: 00 Yes Inject 1 mg Subcutaneo us Once a week; Duration: 30 days [facility] amiodarone (Pacerone) 200 MG tablet 09-14 13:36: 06 Yes 200mg QD Take 200 mg by mouth 1 (one) time each day. [facility] ASPIRIN PO 09-14 13:36: 06 Yes 81mg QD Take 81 mg by mouth 1 (one) time each day. [facility] atorvastati n (Lipitor) 40 MG tablet 09-14 13:36: 06 Yes 40mg QD Take 40 mg by mouth 1 (one) time each day. [facility] carvedilol (Coreg) 3.125 MG tablet 09-14 13:36: 06 Yes 3.125mg Take 3.125 mg by mouth in the morning and 3.125 mg in the evening. Take with meals. [facility] sacubitril- valsartan (Entresto) 97-103 MG tablet 09-14 13:36: 06 Yes 1{tbl} Q.5D Take 1 tablet by mouth 2 (two) times a day. [facility] fluticasone (Flonase) 50 MCG/ACT nasal spray 09-14 13:36: 06 Yes 1{spray } QD Administer 1 spray into each nostril 1 (one) time each day. Shake gently. Before first use, prime pump. After use, clean tip and replace cap. [facility] furosemide (Lasix) 40 MG tablet 09-14 13:36: 06 Yes 40mg QD Take 40 mg by mouth 1 (one) time each day. 1 EVERY 3 DAYS PRN [facility] gabapentin (Neurontin) 300 MG capsule 09-14 13:36: 06 Yes 300mg Q.[id number] 3D Take 300 mg by mouth in the morning and 300 mg at noon and 300 mg in the evening. [facility] levothyroxi ne (Tirosint) 75 MCG capsule 09-14 13:36: 06 Yes 75ug Take 75 mcg by mouth 1 (one) time each day before breakfast. [facility] nitroglycer in (Nitrostat) 0.4 MG SL tablet 09-14 13:36: [address] 0.4 mg under the tongue every 5 (five) minutes if needed for chest pain. PRN [facility] ALPRAZolam (Xanax) 0.25 MG tablet 09-14 13:36: 06 Yes .25mg QD Take 0.25 mg by mouth at night if needed for anxiety. [facility] rivaroxaban (Xarelto) 15 MG tablet 09-14 13:36: 06 Yes 15mg Take 15 mg by mouth 1 (one) time each day with dinner. Take with food. [facility] semaglutide (Ozempic, 0.25 or 0.5 MG/DOSE,) 2 MG/1.5ML solution pen-injecto r 09-14 13:36: 06 Yes .5mg Inject 0.5 mg under the skin 1 (one) time per week. [facility] zinc gluconate 50 MG tablet 09-14 13:36: 06 Yes 50mg QD Take 50 mg by mouth 1 (one) time each day. [facility] co-enzyme Q-10 30 MG capsule 09-14 13:36: 06 Yes 30mg QD Take 30 mg by mouth 1 (one) time each day. [facility] Cholecalcif curtis (Vitamin D) 125 MCG (5000 UT) capsule 09-14 13:36: 06 Yes 125ug QD Take 125 mcg by mouth 1 (one) time each day. [facility] Multiple Vitamin (multivitam in) tablet 09-14 13:36: 06 Yes 1{tbl} QD Take 1 tablet by mouth 1 (one) time each day. [facility] dapaglifloz in (Farxiga) 5 MG 09-14 13:36: 06 Yes 5mg QD Take 5 mg by mouth 1 (one) time each day. [facility] Macrobid 100 MG capsule 09-14 13:36: 06 Yes Q12H every 12 (twelve) hours. [facility] levothyroxi ne (Tirosint) 88 MCG capsule 09-14 13:36: 06 Yes 50ug Take 50 mcg by mouth 1 (one) time each day before breakfast. [facility] amiodarone (Pacerone) 200 MG tablet 02-17 13:21: 31 Yes 200mg QD Take 200 mg by mouth 1 (one) time each day. [facility] ASPIRIN PO 02-17 13:21: 31 Yes 81mg QD Take 81 mg by mouth 1 (one) time each day. [facility] atorvastati n (Lipitor) 40 MG tablet 02-17 13:21: 31 Yes 40mg QD Take 40 mg by mouth 1 (one) time each day. [facility] carvedilol (Coreg) 3.125 MG tablet 02-17 13:21: 31 Yes 3.125mg Take 3.125 mg by mouth in the morning and 3.125 mg in the evening. Take with meals. [facility] sacubitril- valsartan (Entresto) 97-103 MG tablet 02-17 13:21: 31 Yes 1{tbl} Q.5D Take 1 tablet by mouth 2 (two) times a day. [facility] fluticasone (Flonase) 50 MCG/ACT nasal spray 02-17 13:21: 31 Yes 1{spray } QD Administer 1 spray into each nostril 1 (one) time each day. Shake gently. Before first use, prime pump. After use, clean tip and replace cap. [facility] furosemide (Lasix) 40 MG tablet 02-17 13:21: 31 Yes 40mg QD Take 40 mg by mouth 1 (one) time each day. 1 EVERY 3 DAYS PRN [facility] gabapentin (Neurontin) 300 MG capsule 02-17 13:21: 31 Yes 300mg Q.[id number] 3D Take 300 mg by mouth in the morning and 300 mg at noon and 300 mg in the evening. [facility] levothyroxi ne (Tirosint) 75 MCG capsule 02-17 13:21: 31 Yes 75ug Take 75 mcg by mouth 1 (one) time each day before breakfast. [facility] nitroglycer in (Nitrostat) 0.4 MG SL tablet 02-17 13:21: [address] 0.4 mg under the tongue every 5 (five) minutes if needed for chest pain. PRN [facility] ALPRAZolam (Xanax) 0.25 MG tablet 02-17 13:21: 31 Yes .25mg QD Take 0.25 mg by mouth at night if needed for anxiety. [facility] rivaroxaban (Xarelto) 15 MG tablet 02-17 13:21: 31 Yes 15mg Take 15 mg by mouth 1 (one) time each day with dinner. Take with food. [facility] semaglutide (Ozempic, 0.25 or 0.5 MG/DOSE,) 2 MG/1.5ML solution pen-injecto r 02-17 13:21: 31 Yes .5mg Inject 0.5 mg under the skin 1 (one) time per week. [facility] zinc gluconate 50 MG tablet 02-17 13:21: 31 Yes 50mg QD Take 50 mg by mouth 1 (one) time each day. [facility] co-enzyme Q-10 30 MG capsule 02-17 13:21: 31 Yes 30mg QD Take 30 mg by mouth 1 (one) time each day. [facility] Cholecalcif curtis (Vitamin D) 125 MCG (5000 UT) capsule 02-17 13:21: 31 Yes 125ug QD Take 125 mcg by mouth 1 (one) time each day. [facility] Multiple Vitamin (multivitam in) tablet 02-17 13:21: 31 Yes 1{tbl} QD Take 1 tablet by mouth 1 (one) time each day. [facility] dapaglifloz in (Farxiga) 5 MG 02-17 13:21: 31 Yes 5mg QD Take 5 mg by mouth 1 (one) time each day. [facility] Macrobid 100 MG capsule 02-17 13:21: 31 Yes Q12H every 12 (twelve) hours. [facility] levothyroxi ne (Synthroid, Levoxyl) 50 MCG tablet 02-17 13:21: 31 Yes 50ug Take 50 mcg by mouth 1 (one) time each day before breakfast. [facility] True Metrix Level 1 Low True Metrix Level 1 Low 11-02 00:00: 00 No True Metrix Level 1 Low True Metrix Air Glucose Meter w/Device True Metrix Air Glucose Meter w/Device 11-02 00:00: 00 No True [employer]rix Air Glucose Meter w/Device dapaglifloz in (Farxiga) 5 MG 08-18 09:59: 45 Yes 5mg QD Take 5 mg by mouth 1 (one) time each day. [facility] amiodarone (Pacerone) 200 MG tablet 08-18 09:59: 17 Yes 200mg QD Take 200 mg by mouth 1 (one) time each day. [facility] ASPIRIN PO 08-18 09:59: 17 Yes 81mg QD Take 81 mg by mouth 1 (one) time each day. [facility] atorvastati n (Lipitor) 40 MG tablet 08-18 09:59: 17 Yes 40mg QD Take 40 mg by mouth 1 (one) time each day. [facility] carvedilol (Coreg) 3.125 MG tablet 08-18 09:59: 17 Yes 3.125mg Take 3.125 mg by mouth in the morning and 3.125 mg in the evening. Take with meals. [facility] sacubitril- valsartan (Entresto) 97-103 MG tablet 08-18 09:59: 17 Yes 1{tbl} Q.5D Take 1 tablet by mouth 2 (two) times a day. [facility] fluticasone (Flonase) 50 MCG/ACT nasal spray 08-18 09:59: 17 Yes 1{spray } QD Administer 1 spray into each nostril 1 (one) time each day. Shake gently. Before first use, prime pump. After use, clean tip and replace cap. [facility] furosemide (Lasix) 40 MG tablet 08-18 09:59: 17 Yes 40mg QD Take 40 mg by mouth 1 (one) time each day. 1 EVERY 3 DAYS PRN [facility] gabapentin (Neurontin) 300 MG capsule 08-18 09:59: 17 Yes 300mg Q.[id number] 3D Take 300 mg by mouth in the morning and 300 mg at noon and 300 mg in the evening. [facility] levothyroxi ne (Tirosint) 75 MCG capsule 08-18 09:59: 17 Yes 75ug Take 75 mcg by mouth 1 (one) time each day before breakfast. [facility] nitroglycer in (Nitrostat) 0.4 MG SL tablet 08-18 09:59: [address] 0.4 mg under the tongue every 5 (five) minutes if needed for chest pain. PRN [facility] ALPRAZolam (Xanax) 0.25 MG tablet 08-18 09:59: 17 Yes .25mg QD Take 0.25 mg by mouth at night if needed for anxiety. [facility] rivaroxaban (Xarelto) 15 MG tablet 08-18 09:59: 17 Yes 15mg Take 15 mg by mouth 1 (one) time each day with dinner. Take with food. [facility] semaglutide (Ozempic, 0.25 or 0.5 MG/DOSE,) 2 MG/1.5ML solution pen-injecto r 08-18 09:59: 17 Yes .5mg Inject 0.5 mg under the skin 1 (one) time per week. [facility] zinc gluconate 50 MG tablet 08-18 09:59: 17 Yes 50mg QD Take 50 mg by mouth 1 (one) time each day. [facility] co-enzyme Q-10 30 MG capsule 08-18 09:59: 17 Yes 30mg QD Take 30 mg by mouth 1 (one) time each day. [facility] Cholecalcif curtis (Vitamin D) 125 MCG (5000 UT) capsule 08-18 09:59: 17 Yes 125ug QD Take 125 mcg by mouth 1 (one) time each day. [facility] Multiple Vitamin (multivitam in) tablet 08-18 09:59: 17 Yes 1{tbl} QD Take 1 tablet by mouth 1 (one) time each day. [facility] Kerendia 10 MG tablet 08-17 00:00: 00 Yes 10mg QD Take 10 mg by mouth 1 (one) time each day. [facility] co-enzyme Q-10 30 MG capsule 01-19 14:31: 55 Yes 30mg QD Take 30 mg by mouth 1 (one) time each day. [facility] Cholecalcif curtis (Vitamin D) 125 MCG (5000 UT) capsule 01-19 14:31: 55 Yes 125ug QD Take 125 mcg by mouth 1 (one) time each day. [facility] Multiple Vitamin (multivitam in) tablet 01-19 14:31: 55 Yes 1{tbl} QD Take 1 tablet by mouth 1 (one) time each day. [facility] amiodarone (Pacerone) 200 MG tablet 01-19 14:29: 50 Yes 200mg QD Take 200 mg by mouth 1 (one) time each day. [facility] ASPIRIN PO 01-19 14:29: 50 Yes 81mg QD Take 81 mg by mouth 1 (one) time each day. [facility] atorvastati n (Lipitor) 40 MG tablet 01-19 14:29: 50 Yes 40mg QD Take 40 mg by mouth 1 (one) time each day. [facility] carvedilol (Coreg) 3.125 MG tablet 01-19 14:29: 50 Yes 3.125mg Take 3.125 mg by mouth in the morning and 3.125 mg in the evening. Take with meals. [facility] sacubitril- valsartan (Entresto) 97-103 MG tablet 01-19 14:29: 50 Yes 1{tbl} Q.5D Take 1 tablet by mouth 2 (two) times a day. [facility] fluticasone (Flonase) 50 MCG/ACT nasal spray 01-19 14:29: 50 Yes 1{spray } QD Administer 1 spray into each nostril 1 (one) time each day. Shake gently. Before first use, prime pump. After use, clean tip and replace cap. [facility] furosemide (Lasix) 40 MG tablet 01-19 14:29: 50 Yes 40mg QD Take 40 mg by mouth 1 (one) time each day. 1 EVERY 3 DAYS PRN [facility] gabapentin (Neurontin) 300 MG capsule 01-19 14:29: 50 Yes 300mg Q.[id number] 3D Take 300 mg by mouth in the morning and 300 mg at noon and 300 mg in the evening. [facility] levothyroxi ne (Tirosint) 75 MCG capsule 01-19 14:29: 50 Yes 75ug Take 75 mcg by mouth 1 (one) time each day before breakfast. [facility] ALPRAZolam (Xanax) 0.25 MG tablet 01-19 14:29: 50 Yes .25mg QD Take 0.25 mg by mouth at night if needed for anxiety. [facility] rivaroxaban (Xarelto) 15 MG tablet 01-19 14:29: 50 Yes 15mg Take 15 mg by mouth 1 (one) time each day with dinner. Take with food. [facility] semaglutide (Ozempic, 0.25 or 0.5 MG/DOSE,) 2 MG/1.5ML solution pen-injecto r 01-19 14:29: 50 Yes .5mg Inject 0.5 mg under the skin 1 (one) time per week. [facility] zinc gluconate 50 MG tablet 01-19 14:29: 50 Yes 50mg QD Take 50 mg by mouth 1 (one) time each day. [facility] liraglutide (Victoza) 18 MG/3ML injection 01-19 14:29: 50 01-19 00:00 :00 No 1.2mg QD Inject 1.2 mg under the skin 1 (one) time each day. [facility] nitroglycer in (Nitrostat) 0.4 MG SL tablet 12-18 10:22: [address] 0.4 mg under the tongue every 5 (five) minutes if needed for chest pain. PRN [facility] amiodarone (Pacerone) 200 MG tablet 12-18 10:22: 07 Yes 200mg QD Take 200 mg by mouth 1 (one) time each day. [facility] ASPIRIN PO 12-18 10:22: 07 Yes 81mg QD Take 81 mg by mouth 1 (one) time each day. [facility] atorvastati n (Lipitor) 40 MG tablet 12-18 10:22: 07 Yes 40mg QD Take 40 mg by mouth 1 (one) time each day. [facility] carvedilol (Coreg) 3.125 MG tablet 12-18 10:22: 07 Yes 3.125mg Take 3.125 mg by mouth in the morning and 3.125 mg in the evening. Take with meals. [facility] sacubitril- valsartan (Entresto) 97-103 MG tablet 12-18 10:22: 07 Yes 1{tbl} Q.5D Take 1 tablet by mouth 2 (two) times a day. [facility] fluticasone (Flonase) 50 MCG/ACT nasal spray 12-18 10:22: 07 Yes 1{spray } QD Administer 1 spray into each nostril 1 (one) time each day. Shake gently. Before first use, prime pump. After use, clean tip and replace cap. [facility] furosemide (Lasix) 40 MG tablet 12-18 10:22: 07 Yes 40mg QD Take 40 mg by mouth 1 (one) time each day. [facility] gabapentin (Neurontin) 300 MG capsule 12-18 10:22: 07 Yes 300mg [id number] 3D Take 300 mg by mouth in the morning and 300 mg at noon and 300 mg in the evening. [facility] levothyroxi ne (Tirosint) 75 MCG capsule 12-18 10:22: 07 Yes 75ug Take 75 mcg by mouth 1 (one) time each day before breakfast. [facility] liraglutide (Victoza) 18 MG/3ML injection 12-18 10:22: 07 Yes 1.2mg QD Inject 1.2 mg under the skin 1 (one) time each day. [facility] ALPRAZolam (Xanax) 0.25 MG tablet 12-18 10:22: 07 Yes .25mg QD Take 0.25 mg by mouth at night if needed for anxiety. [facility] rivaroxaban (Xarelto) 15 MG tablet 12-18 10:22: 07 Yes 15mg Take 15 mg by mouth 1 (one) time each day with dinner. Take with food. [facility] semaglutide (Ozempic, 0.25 or 0.5 MG/DOSE,) 2 MG/1.5ML solution pen-injecto r 12-18 10:22: 07 Yes .5mg Inject 0.5 mg under the skin 1 (one) time per week. [facility] zinc gluconate 50 MG tablet 12-18 10:22: 07 Yes 50mg QD Take 50 mg by mouth 1 (one) time each day. [facility] Xarelto 15 MG Xarelto 15 MG No 1{table t_with_ food} QD Xarelto 15 MG TRUEplus Lancets 33G - TRUEplus Lancets 33G - No TRUEplus Lancets 33G - Estradiol 10 MCG Estradiol 10 MCG No 1{table t} Estradiol 10 MCG True Metrix Blood Glucose Test - True Metrix Blood Glucose Test - No True Metrix Blood Glucose Test - Vital Signs Vital Name Observation Time Observation Value Comments S ource Systolic blood pressure 2025-03-14 19:52:00 103 mm[Hg] [facility] Diastolic blood pressure 2025-03-14 19:52:00 63 mm[Hg] [facility] Heart rate 2025-03-14 19:52:00 70 /min [facility] Res[facility] 2025-03-14 19:52:00 20 /min [facility] Body height 2025-03-14 19:52:00 162.6 cm [facility] Body weight 2025-03-14 19:52:00 71.759 kg [facility] BMI 2025-03-14 19:52:00 27.15 kg/m2 [facility] Oxygen saturation in Arterial blood by Pulse oximetry 2025-03-14 19:52:00 97 /min [facility] Systolic blood pressure 2025-02-13 22:24:00 105 mm[Hg] [facility] Diastolic blood pressure 2025-02-13 22:24:00 66 mm[Hg] [facility] Heart rate 2025-02-13 22:24:00 75 /min [facility] Body temperature 2025-02-13 22:24:00 36.94 Alejandrina [facility] Respiratory rate 2025-02-13 22:24:00 18 /min [facility] Body height 2025-02-13 22:24:00 162.6 cm [facility] Body weight 2025-02-13 22:24:00 70.398 kg [facility] BMI 2025-02-13 22:24:00 26.64 kg/m2 [facility] Oxygen saturation in Arterial blood by Pulse oximetry 2025-02-13 22:24:00 96 /min [facility] Systolic blood pressure 2024-12-21 17:10:00 94 mm[Hg] [facility] Diastolic blood pressure 2024-12-21 17:10:00 61 mm[Hg] [facility] Heart rate 2024-12-21 17:06:00 80 /min [facility] Body temperature 2024-12-21 17:06:00 36.83 Alejandrina [facility] Respiratory rate 2024-12-21 17:06:00 17 /min [facility] Body height 2024-12-21 17:06:00 162.6 cm [facility] Body weight 2024-12-21 17:06:00 68.221 kg [facility] BMI 2024-12-21 17:06:00 25.82 kg/m2 [facility] Oxygen saturation in Arterial blood by Pulse oximetry 2024-12-21 17:06:00 95 /min [facility] Systolic blood pressure 2024-10-24 17:47:00 115 mm[Hg] [facility] Diastolic blood pressure 2024-10-24 17:47:00 70 mm[Hg] [facility] Heart rate 2024-10-24 17:47:00 75 /min [facility] Body temperature 2024-10-24 17:47:00 35.94 Alejandrina [facility] Body height 2024-10-24 17:47:00 162.6 cm [facility] Body weight 2024-10-24 17:47:00 68.947 kg [facility] BMI 2024-10-24 17:47:00 26.09 kg/m2 [facility] Systolic blood pressure 2024-09-27 17:59:00 102 mm[Hg] [facility] Diastolic blood pressure 2024-09-27 17:59:00 67 mm[Hg] [facility] Heart rate 2024-09-27 17:59:00 69 /min [facility] Body height 2024-09-27 17:59:00 [facility].6 [facility] Body weight 2024-09-27 17:59:00 66.497 [facility] BMI 2024-09-27 17:59:00 25.16 [facility]m2 [facility] height 2024-08-06 13:45:00 64 [in_i] Commo n [facility] weight 2024-08-06 13:45:00 145 [lb_av] Comm on [facility] temperature 2024-08-06 13:45:00 97.3 [degF] Com mon [facility] bmi 2024-08-06 13:45:00 24.89 kg/m2 Comm on [facility] oximetry 2024-08-06 13:45:00 95 % Commo n [facility] respiratory rate 2024-08-06 13:45:00 17 /min Common [facility] blood pressure systolic 2024-08-06 13:45:00 92 mm[Hg] Common [facility] blood pressure diastolic 2024-08-06 13:45:00 56 mm[Hg] [facility] height 2024-08-06 14:00:00 64 [in_i] Commo n [facility] weight 2024-08-06 14:00:00 145.0 [lb_av] Co mmon [facility] temperature 2024-08-06 14:00:00 97.3 [degF] Com mon [facility] bmi 2024-08-06 14:00:00 24.89 kg/m2 Comm on [facility] oximetry 2024-08-06 14:00:00 96 % Commo n [facility] blood pressure systolic 2024-08-06 14:00:00 92 mm[Hg] Common [facility] blood pressure diastolic 2024-08-06 14:00:00 56 mm[Hg] [facility] Systolic blood pressure 2024-05-31 15:32:00 94 mm[Hg] [facility] Diastolic blood pressure 2024-05-31 15:32:00 61 mm[Hg] [facility] Heart rate 2024-05-31 15:32:00 72 /min [facility] Body temperature 2024-05-31 15:32:00 36.56 Alejandrina [facility] Respiratory rate 2024-05-31 15:32:00 17 /min [facility] Body height 2024-05-31 15:32:00 162.6 cm [facility] Body weight 2024-05-31 15:32:00 65.772 kg [facility] BMI 2024-05-31 15:32:00 24.89 kg/m2 [facility] height 2024-04-09 10:00:00 64 [in_i] Commo n [facility] weight 2024-04-09 10:00:00 144.6 [lb_av] Co mmon [facility] temperature 2024-04-09 10:00:00 98.2 [degF] Com mon [facility] bmi 2024-04-09 10:00:00 24.82 kg/m2 Comm on [facility] oximetry 2024-04-09 10:00:00 99 % Commo n [facility] blood pressure systolic 2024-04-09 10:00:00 108 mm[Hg] Common [facility] blood pressure diastolic 2024-04-09 10:00:00 68 mm[Hg] [facility] Systolic blood pressure 2024-03-22 18:19:00 87 mm[Hg] [facility] Diastolic blood pressure 2024-03-22 18:19:00 56 mm[Hg] [facility] Heart rate 2024-03-22 18:19:00 66 /min [facility] Body height 2024-03-22 18:19:00 162.6 cm [facility] Body weight 2024-03-22 18:19:00 66.679 [facility] BMI 2024-03-22 18:19:00 25.23 kg[facility]m2 [facility] 2024-03-06 08:20:00 64 [in_i] Commo n [facility] weight 2024-03-06 08:20:00 149.8 [lb_av] Co mmon [facility] temperature 2024-03-06 08:20:00 97.3 [degF] Com mon [facility] bmi 2024-03-06 08:20:00 25.71 kg/m2 Comm on [facility] oximetry 2024-03-06 08:20:00 95 % Commo n [facility] respiratory rate 2024-03-06 08:20:00 18 /min Common [facility] blood pressure systolic 2024-03-06 08:20:00 109 mm[Hg] Common [facility] blood pressure diastolic 2024-03-06 08:20:00 59 mm[Hg] [facility] height 2024-01-04 13:00:00 64 [in_i] Commo n [facility] weight 2024-01-04 13:00:00 160 [lb_av] Comm on [facility] temperature 2024-01-04 13:00:00 96 [degF] Comm on [facility] bmi 2024-01-04 13:00:00 27.46 kg/m2 Comm on [facility] blood pressure systolic 2024-01-04 13:00:00 115 mm[Hg] [facility] blood pressure diastolic 2024-01-04 13:00:00 65 mm[Hg] [facility] Systolic blood pressure 2023-09-15 18:31:00 100 mm[Hg] [facility] Diastolic blood pressure 2023-09-15 18:31:00 64 mm[Hg] [facility] Heart rate 2023-09-15 18:31:00 71 /min [facility] Body height 2023-09-15 18:31:00 162.6 cm [facility] Body weight 2023-09-15 18:31:00 69.4 [facility] BMI 2023-09-15 18:31:00 26.26 [facility]23-09-14 08:30:00 64 [in_i] Commo n [facility] weight 2023-09-14 08:30:00 154.0 [lb_av] Co mmon [facility] temperature 2023-09-14 08:30:00 97.8 [degF] Com mon [facility] bmi 2023-09-14 08:30:00 26.43 kg/m2 Comm on [facility] oximetry 2023-09-14 08:30:00 96 % Commo n [facility] respiratory rate 2023-09-14 08:30:00 17 /min Common [facility] blood pressure systolic 2023-09-14 08:30:00 118 mm[Hg] Common [facility]iri [facility] blood pressure diastolic 2023-09-14 08:30:00 73 mm[Hg] [facility] height 2023-06-29 15:10:00 64 [in_i] Commo n [facility] weight 2023-06-29 15:10:00 155.6 [lb_av] Co mmon [facility] temperature 2023-06-29 15:10:00 97.2 [degF] Com mon [facility] bmi 2023-06-29 15:10:00 26.71 kg/m2 Comm on [facility] oximetry 2023-06-29 15:10:00 92 % Commo n [facility] blood pressure systolic 2023-06-29 15:10:00 102 mm[Hg] [facility] blood pressure diastolic 2023-06-29 15:10:00 64 mm[Hg] [facility] height 2023-06-08 16:20:00 64 [in_i] Commo n [facility] weight 2023-06-08 16:20:00 161 [lb_av] Comm on [facility] bmi 2023-06-08 16:20:00 27.63 kg/m2 Comm on [facility] height 2023-03-31 10:50:00 64 [in_i] Commo n [facility] weight 2023-03-31 10:50:00 161.2 [lb_av] Co mmon [facility] temperature 2023-03-31 10:50:00 97.3 [degF] Com [facility] bmi 2023-03-31 10:50:00 27.67 kg/m2 Comm on [facility] oximetry 2023-03-31 10:50:00 97 % Commo n [facility] respiratory rate 2023-03-31 10:50:00 16 /min Common [facility] blood pressure systolic 2023-03-31 10:50:00 128 mm[Hg] [facility] blood pressure diastolic 2023-03-31 10:50:00 76 mm[Hg] Common [facility] Systolic blood pressure 2023-02-17 18:16:00 105 mm[Hg] [facility] Diastolic blood pressure 2023-02-17 18:16:00 68 mm[Hg] [facility] Heart rate 2023-02-17 18:16:00 68 /min [facility] Body height 2023-02-17 18:16:00 162.6 cm [facility] Body weight 2023-02-17 18:16:00 70.761 [facility] BMI 2023-02-17 18:16:00 26.78 kg[facility]m2 [facility] height 2022-12-20 11:40:00 64 [in_i] Commo n [facility] weight 2022-12-20 11:40:00 152.6 [lb_av] Co mmon [facility] temperature 2022-12-20 11:40:00 97.2 [degF] Com mon [facility] bmi 2022-12-20 11:40:00 26.19 kg/m2 Comm on [facility] oximetry 2022-12-20 11:40:00 93 % Commo n [facility] respiratory rate 2022-12-20 11:40:00 17 /min Common [facility] blood pressure systolic 2022-12-20 11:40:00 130 mm[Hg] [facility] blood pressure diastolic 2022-12-20 11:40:00 67 mm[Hg] Common [facility] height 2022-09-07 16:00:00 64 [in_i] Commo n [facility] weight 2022-09-07 16:00:00 139.0 [lb_av] Co mmon [facility] temperature 2022-09-07 16:00:00 96.3 [degF] Com mon [facility] bmi 2022-09-07 16:00:00 23.86 kg/m2 Comm on [facility] oximetry 2022-09-07 16:00:00 96 % Commo n [facility] respiratory rate 2022-09-07 16:00:00 16 /min Common [facility] blood pressure systolic 2022-09-07 16:00:00 96 mm[Hg] [facility] blood pressure diastolic 2022-09-07 16:00:00 59 mm[Hg] Common [facility] height 2022-09-07 16:00:00 64 [in_i] Commo n [facility] weight 2022-09-07 16:00:00 139 [lb_av] Comm on [facility] temperature 2022-09-07 16:00:00 96.3 [degF] Com mon [facility] bmi 2022-09-07 16:00:00 23.86 kg/m2 Comm on [facility] oximetry 2022-09-07 16:00:00 96 % Commo n [facility] respiratory rate 2022-09-07 16:00:00 16 /min [facility] blood pressure systolic 2022-09-07 16:00:00 96 mm[Hg] [facility] blood pressure diastolic 2022-09-07 16:00:00 59 mm[Hg] [facility] Systolic blood pressure 2022-08-18 15:00:00 102 mm[Hg] [facility] Diastolic blood pressure 2022-08-18 15:00:00 64 mm[Hg] [facility] Heart rate 2022-08-18 15:00:00 69 /min [facility] Body height 2022-08-18 15:00:00 162.6 cm [facility] Body weight 2022-08-18 15:00:00 61.236 [facility] BMI 2022-08-18 15:00:00 23.17 kg/m2 [facility] height 2022-06-04 15:00:00 64 [in_i] Commo n [facility] weight 2022-06-04 15:00:00 138.0 [lb_av] Co mmon [facility] temperature 2022-06-04 15:00:00 97.5 [degF] Com mon [facility] bmi 2022-06-04 15:00:00 23.69 kg/m2 Comm on [facility] oximetry 2022-06-04 15:00:00 98 % Commo n [facility] respiratory rate 2022-06-04 15:00:00 17 /min Common [facility] blood pressure systolic 2022-06-04 15:00:00 110 mm[Hg] [facility] blood pressure diastolic 2022-06-04 15:00:00 60 mm[Hg] [facility] height 2022-05-24 10:50:00 64 [in_i] Commo n [facility] weight 2022-05-24 10:50:00 140 [lb_av] Comm on [facility] temperature 2022-05-24 10:50:00 96 [degF] Comm on [facility] bmi 2022-05-24 10:50:00 24.03 kg/m2 Comm on [facility] blood pressure systolic 2022-05-24 10:50:00 118 mm[Hg] [facility] blood pressure diastolic 2022-05-24 10:50:00 65 mm[Hg] [facility] height 2022-04-22 15:30:00 64 [in_i] Commo n [facility] weight 2022-04-22 15:30:00 147.7 [lb_av] Co mmon [facility] temperature 2022-04-22 15:30:00 97.8 [degF] Com mon [facility] bmi 2022-04-22 15:30:00 25.35 kg/m2 Comm on [facility] oximetry 2022-04-22 15:30:00 98 % Commo n [facility] respiratory rate 2022-04-22 15:30:00 18 /min Common [facility] blood pressure systolic 2022-04-22 15:30:00 124 mm[Hg] [facility] blood pressure diastolic 2022-04-22 15:30:00 64 mm[Hg] [facility] height 2022-03-25 09:00:00 64 [in_i] Commo n [facility] weight 2022-03-25 09:00:00 148 [lb_av] Comm on [facility] temperature 2022-03-25 09:00:00 97.6 [degF] Com mon [facility] bmi 2022-03-25 09:00:00 25.4 kg/m2 Commo n [facility] oximetry 2022-03-25 09:00:00 100 % Commo n [facility] respiratory rate 2022-03-25 09:00:00 18 /min Common [facility] blood pressure systolic 2022-03-25 09:00:00 102 mm[Hg] [facility] blood pressure diastolic 2022-03-25 09:00:00 59 mm[Hg] [facility] Systolic blood pressure 2022-01-19 19:27:00 117 mm[Hg] [facility] Diastolic blood pressure 2022-01-19 19:27:00 71 mm[Hg] [facility] Heart rate 2022-01-19 19:27:00 65 /min [facility] Body height 2022-01-19 19:27:00 163.8 cm [facility] weight 2022-01-19 19:27:00 69.854 [facility] BMI 2022-01-19 19:27:00 26.03 kg[facility]m2 [facility] Procedures Procedure Date / Time Performed Performing Clinician Source POCT HEMOGLOBIN A1C TEST 2025-03-14 20:03:00 Louis Britton [facility] SCANNED LAB RESULTS 2024-12-21 17:18:15 Doctor Manny bean [place] [facility] ECG 12-LEAD 2024-09-27 18:15:54 Edinson Spain [facility] ECG 12-LEAD 2024-03-22 19:56:09 Edinson Spain [facility] ECG 12-LEAD 2023-09-15 19:40:35 Edinson Spain [facility] ECG 12-LEAD 2023-02-20 04:31:38 JuditArpitmarcos jefferson [facility] HEPATIC FUNCTION PANEL 2022-08-18 16:00:00 SpainArpit navarromitra [facility] AMIODARONE LEVEL 2022-08-18 16:00:00 Hany Spain [facility] ECG 12-LEAD 2022-01-19 19:33:00 Amber Pierson [facility] Encounters Start Date/Time End Date/Time Encounter Type Admission Type Attending [facility] Care Facility Care Department Encounter ID Source 2023-06-27 11:52:00 Outpatient Gasper Baih [facility] [id number] [facility] 2022-11-08 13:20:50 Outpatient [facility] [id number] [facility] 2022-09-07 14:58:01 Outpatient BaiGasper lopezh [facility] [id number] [facility] 2022-08-16 14:25:44 Outpatient [facility] [id number] [facility] 2022-08-13 11:44:12 Outpatient [facility] [id number] [facility] 2022-08-12 11:09:48 Outpatient [facility] [id number] [facility] 2022-06-27 15:25:45 Outpatient [facility] [id number] [facility] 2022-05-20 15:06:03 Outpatient BaiGasper lopezh [facility] [id number] [facility] 2022-04-22 08:06:01 Outpatient BaiGasper lopezh [facility] [id number] [facility] 2022-03-29 14:10:34 Outpatient [facility] [id number] [facility] 2022-03-25 08:54:09 Outpatient BaiGasper lopezh [facility] [id number] [facility] 2025-03-26 11:15:00 2025-03-26 11:15:00 Outpatient SPAINJW [facility] [id number] [facility] 2025-03-14 15:00:00 2025-03-14 16:13:48 Office Visit R Louis Britton [facility] 1.2.840.114 350.1.13.10 4.2.7.2.686 [id number] [facility] 2025-02-28 00:00:00 2025-03-01 09:37:36 Telephone Josie Brittonanne [facility] [id number] 350.1.13.10 4.2.7.2.686 [id number] [facility] 2025-02-14 00:00:00 2025-02-16 23:19:13 Telephone Louis Britton [facility] [id number] 350.1.13.10 4.2.7.2.686 [id number] [facility] 2025-02-15 00:00:00 2025-02-16 23:11:45 Telephone Josie Brittonanne [facility] 1.2.840.114 350.1.13.10 4.2.7.2.686 [id number] [facility] 2025-02-13 18:06:08 2025-02-13 23:59:00 Hospital Encounter R Shannan Bruno [facility] 1.2.840.114 350.1.13.10 4.2.7.2.686 [id number] [facility] 2025-02-13 17:30:00 2025-02-13 18:46:51 Office Visit R Josie Brittonanne [facility] 1.2.840.114 350.1.13.10 4.2.7.2.686 [id number] [facility] 2025-02-07 00:00:00 2025-02-13 10:44:43 Telephone Louis Britton [facility] [id number] 350.1.13.10 4.2.7.2.686 [id number] [facility] 2025-01-30 12:30:00 2025-01-30 12:30:00 Outpatient José Manuel CAROLINASADIE MIRELES [facility] [id number] [facility] 2024-12-21 00:00:00 2024-12-22 02:03:18 Orders Only Doctor Unassigned, [place] Doctor Unassigned, [place] [facility] 1.2.840.114 350.1.13.10 4.2.7.2.686 [id number] [facility] 2024-12-21 12:00:00 2024-12-21 13:18:37 Office Visit R Louis Britton [facility] 1.2.840.114 350.1.13.10 4.2.7.2.686 [id number] [facility] 2024-10-24 13:04:34 2024-10-24 23:59:00 Hospital Encounter Sadie Bales [facility] 1.2.840.114 350.1.13.10 4.2.7.2.686 [id number] [facility] 2024-10-24 12:30:00 2024-10-24 14:04:15 Office Visit Sadie Bales [facility] 1.2.840.114 350.1.13.10 4.2.7.2.686 [id number] [facility] 2024-10-24 12:30:00 2024-10-24 12:30:00 Outpatient José Manuel SIMPSONDANAY SADIE [facility] [id number] [facility] 2024-09-27 13:00:00 2024-09-27 13:29:13 Office Visit Jw Spain [facility] [address]IPTI 1.2.840.114 350.1.13.58 9.2.7.2.686 [id number] [facility] 2024-09-17 00:00:00 2024-09-17 00:00:00 (TEL) STLMLC STLMLC [id number] [facility] 2024-09-17 00:00:00 2024-09-17 00:00:00 (TEL) STLMLC STLMLC [id number] [facility] 2024-08-14 00:00:00 2024-08-14 00:00:00 (TEL) [facility] STLC [id number] [facility] 2024-08-06 00:00:00 2024-08-06 00:00:00 OFFICE VISIT ESTAB PT LEVEL 4 STLMLC STLC [id number] [facility] 2024-08-06 00:00:00 2024-08-06 00:00:00 SUB [facility]AL [facility] [id number] [facility] [facility] 2024-08-06 00:00:00 2024-08-06 00:00:00 (TEL) [facility] STLC [id number] [facility] 2024-06-04 00:00:00 2024-06-04 12:39:12 Telephone Fabiano Sorensen [facility] 1.2.840.114 350.1.13.10 4.2.7.2.686 [id number] 134 [id number] [facility] 2024-05-31 09:30:00 2024-05-31 09:57:09 Outpatient FABIANO OLIVAREZ MARISOL [facility] [id number] [facility] 2024-05-31 09:30:00 2024-05-31 09:57:09 Office Visit FABIANO OLIVAREZI S, FABIANO [facility] 1.2.840.114 350.1.13.10 4.2.7.2.686 [id number] 134 [id number] [facility] 2024-04-09 00:00:00 2024-04-09 00:00:00 OFFICE VISIT ESTAB PT LEVEL 4 STLMLC STLMLC [id number] [facility] 2024-03-22 14:15:00 2024-03-22 14:45:52 Office Visit Judit Arpitmitra [facility] [address] 1.2.840.114 350.1.13.58 9.2.7.2.686 [id number] 1 [id number] [facility] 2024-03-06 00:00:00 2024-03-06 00:00:00 OFFICE VISIT ESTAB PT LEVEL 3 STLMLC STLMLC [id number] [facility] 2024-03-06 00:00:00 2024-03-06 00:00:00 (TEL) STLMLC STLMLC [id number] [facility] 2024-03-05 00:00:00 2024-03-05 00:00:00 (TEL) STLMLC STLMLC [id number] [facility] 2024-01-04 00:00:00 2024-01-04 00:00:00 OFFICE VISIT ESTAB PT LEVEL 4 STLMLC STLMLC [id number] [facility] 2023-12-26 00:00:00 2023-12-26 00:00:00 (TEL) STLMLC STLMLC [id number] [facility] 2023-12-16 11:00:00 2023-12-16 12:28:56 Telephonic Encounter Judit Jw [facility] [address] 1.2.840.114 350.1.13.58 9.2.7.2.686 [id number] 1 [id number] [facility] 2023-09-15 14:15:00 2023-09-15 14:15:04 Office Visit Jw Spain [facility] [address] 1.2.840.114 350.1.13.58 9.2.7.2.686 [id number] 1 [id number] [facility] 2023-09-14 00:00:00 2023-09-14 00:00:00 OFFICE VISIT ESTAB PT LEVEL 4 STLMLC STLMLC [id number] [facility] 2023-08-25 14:00:00 2023-08-25 14:00:00 Outpatient JUDIT JW [facility] [id number] [facility] 2023-08-11 00:00:00 2023-08-11 00:00:00 (TEL) STLMLC STLMLC [id number] [facility] 2023-08-11 00:00:00 2023-08-11 00:00:00 (TEL) STLMLC STLMLC [id number] [facility] 2023-07-29 00:00:00 2023-07-29 00:00:00 (TEL) STLMLC STLMLC [id number] [facility] 2023-07-07 00:00:00 2023-07-07 00:00:00 (TEL) STLMLC STLMLC [id number] [facility] 2023-06-29 00:00:00 2023-06-29 00:00:00 OFFICE VISIT ESTAB PT LEVEL 4 STLMLC STLMLC [id number] [facility] 2023-06-08 00:00:00 2023-06-08 00:00:00 (TEL) STLMLC STLMLC [id number] [facility] 2023-06-08 00:00:00 2023-06-08 00:00:00 OFFICE VISIT ESTAB PT LEVEL 3 STLMLC STLMLC [id number] [facility] 2023-03-31 00:00:00 2023-03-31 00:00:00 OFFICE VISIT ESTAB PT LEVEL 4 STLMLC STLMLC [id number] [facility] 2023-03-09 00:00:00 2023-03-09 00:00:00 (TEL) STLMLC STLMLC [id number] [facility] 2023-02-24 13:00:00 2023-02-24 13:00:00 Outpatient JW SPAIN [facility] [id number] [facility] 2023-02-17 14:00:00 2023-02-17 14:06:16 Office Visit Jw [place] [facility] [address] 1.2.840.114 350.1.13.58 9.2.7.2.686 [id number] 1 [id number] [facility] 2022-12-20 00:00:00 2022-12-20 00:00:00 OFFICE VISIT ESTAB PT LEVEL 4 STLMLC STLMLC [id number] [facility] 2022-11-08 00:00:00 2022-11-08 00:00:00 (TEL) STLMLC STLMLC [id number] [facility] 2022-11-02 00:00:00 2022-11-02 00:00:00 (TEL) STLMLC STLMLC [id number] [facility] 2022-09-28 00:00:00 2022-09-28 00:00:00 (TEL) STLMLC STLMLC [id number] [facility] 2022-09-27 00:00:00 2022-09-27 00:00:00 (TEL) STLMLC STLMLC [id number] [facility] 2022-09-15 00:00:00 2022-09-15 00:00:00 (TEL) STLMLC STLMLC [id number] [facility] 2022-09-07 00:00:00 2022-09-07 00:00:00 OFFICE VISIT ESTAB PT LEVEL 4 STLMLC STLMLC [id number] [facility] 2022-09-07 00:00:00 2022-09-07 00:00:00 SUB ANNUAL [facility] VISIT STLMLC STLMLC [id number] [facility] 2022-08-18 10:30:00 2022-08-18 10:53:55 Office Visit Jw [place] [facility] [address] 1.2.840.114 350.1.13.58 9.2.7.2.686 [id number] 1 [id number] [facility] 2022-08-16 00:00:00 2022-08-16 00:00:00 (TEL) STLMLC STLMLC [id number] [facility] 2022-07-06 00:00:00 2022-07-06 00:00:00 (TEL) STLMLC STLMLC [id number] [facility] 2022-06-04 00:00:00 2022-06-04 00:00:00 OFFICE VISIT EST PT LEVEL 3 STLMLC STLMLC [id number] [facility] 2022-06-03 00:00:00 2022-06-03 00:00:00 (TEL) STLMLC STLMLC [id number] [facility] 2022-06-02 00:00:00 2022-06-02 00:00:00 (TEL) STLMLC STLMLC [id number] [facility] 2022-05-24 00:00:00 2022-05-24 00:00:00 OFFICE VISIT ESTAB PT LEVEL 4 STLMLC STLMLC [id number] [facility] 2022-04-22 00:00:00 2022-04-22 00:00:00 OFFICE VISIT ESTAB PT LEVEL 2 STLMLC STLMLC [id number] [facility] 2022-04-21 00:00:00 2022-04-21 00:00:00 (TEL) STLMLC STLMLC [id number] [facility] 2022-03-25 00:00:00 2022-03-25 00:00:00 OFFICE VISIT NEW PT LEVEL 4 STLMLC STLMLC [id number] [facility] 2022-01-19 14:30:00 2022-01-19 15:07:40 Office Visit Amber Pierson [facility] 2 1.2.840.114 350.1.13.58 9.2.7.2.686 [id number] [facility] 2021-12-31 00:00:00 2021-12-31 00:00:00 Telephone Luciana Flores Laura [facility] 4 1.2.840.114 350.1.13.58 9.2.7.2.686 [id number] 3 [id number] [facility] 2021-12-28 10:13:00 2021-12-29 09:50:00 Outpatient LUPE POWELL [facility] [address] [facility] 2021-12-18 11:00:00 2021-12-18 12:55:59 Office Visit Lupe Powell [facility] [address] 1.2.840.114 350.1.13.58 9.2.7.2.686 [id number] 1 [id number] [facility] 2021-11-18 00:00:00 2021-11-18 00:00:00 Abstract Matilda Vivar [place] [facility] 2 1.2.840.114 350.1.13.58 9.2.7.2.686 [id number] 1 [id number] [facility] Results Test Description Test Time Test Comments Results Result Co mments Source [facility] [id number] 17:18:15Ordered by an unspecified provider.[facility] lead 2024-09-27 18:15:54Sinus rhythm .[facility] 2024-07-31 00:00:00* Test Item Value Reference Range Interpretation Comme nts NUCLEATED RBCS (test code = 68778-3) 0.0 /100 WBC'S See_Comment [Automated message] The system which generated this result transmitted reference range: 0.0 /100 WBC'S. The reference range was not used to interpret this result as normal/abnormal. ABSOLUTE EOSINOPHILS (test code = 87782-0) 0.12 K/UL See_Comment [Automated message] The system which generated this result transmitted reference range: 0.00-0.50 K/UL. The reference range was not used to interpret this result as normal/abnormal. ABSOLUTE LYMPHOCYTES (test code = 88226-3) 1.65 K/UL See_Comment [Automated message] The system which generated this result transmitted reference range: 1.00-4.00 K/UL. The reference range was not used to interpret this result as normal/abnormal. ABSOLUTE MONOCYTES (test code = 02853-4) 0.56 K/UL See_Comment [Automated message] The system which generated this result transmitted reference range: 0.20-1.00 K/UL. The reference range was not used to interpret this result as normal/abnormal. ABSOLUTE NEUTROPHILS (test code = 14078-1) 5.26 K/UL See_Comment [Automated message] The system which generated this result transmitted reference range: 1.50-7.50 K/UL. The reference range was not used to interpret this result as normal/abnormal. BASOPHILS (test code = 30881-6) 0.5 % EOSINOPHILS (test code = 06067-2) 1.6 % HEMATOCRIT (test code = 78380-0) 38.4 % See_Comment [Automated messa ge] The system which generated this result transmitted reference range: 34.0-45.0 %. The reference range was not used to interpret this result as normal/abnormal. HEMOGLOBIN (test code = 718-7) 12.4 G/DL See_Comment [Automated messa ge] The system which generated this result transmitted reference range: 11.5-15.5 G/DL. The reference range was not used to interpret this result as normal/abnormal. LYMPHOCYTES (test code = 45611-5) 21.6 % MCH (test code = 31075-7) 29.5 PG See_Comment [Automated messa ge] The system which generated this result transmitted reference range: 25.0-33.0 PG. The reference range was not used to interpret this result as normal/abnormal. MCHC (test code = 75295-6) 32.3 G/DL See_Comment [Automated messa ge] The system which generated this result transmitted reference range: 31.0-36.0 G/DL. The reference range was not used to interpret this result as normal/abnormal. MCV (test code = 04029-3) 91.2 fL See_Comment [Automated [facility]] The system which generated this result transmitted reference range: 80.0-99.0 fL. The reference range was not used to interpret this result as normal/abnormal. MONOCYTES (test code = 73695-7) 7.3 % NEUTROPHILS (test code = 78880-0) 68.7 % PLATELET COUNT (test code = 36019-3) 280 K/UL See_Comment [Automated [facility]] The system which generated this result transmitted reference range: 130-400 K/UL. The reference range was not used to interpret this result as normal/abnormal. RBC (test code = 64295-0) 4.21 M/UL See_Comment [Automated [facility]] The system which generated this result transmitted reference range: 3.80-5.40 M/UL. The reference range was not used to interpret this result as normal/abnormal. RDW (test code = 10560-9) 12.6 % See_Comment [Automated [facility]] The system which generated this result transmitted reference range: 11.5-15.0 %. The reference range was not used to interpret this result as normal/abnormal. WBC (test code = 06902-5) 7.7 K/UL See_Comment [Automated [facility]] The system which generated this result transmitted reference range: 3.5-11.0 K/UL. The reference range was not used to interpret this result as normal/abnormal. HEMOGLOBIN A1c (test code = 4548-4) 5.7 % See_Comment H [Automated [facility]] The system which generated this result transmitted reference range: 4.2-5.6 %. The reference range was not used to interpret this result as normal/abnormal. TSH REFLEX TO FREE T4 (test code = 09131-5) 1.150 UIU/ML See_Comment [Automated message] The system which generated this result transmitted reference range: 0.400-4.100 UIU/ML. The reference range was not used to interpret this result as normal/abnormal. CALC LDL CHOL (test code = 15457-6) 70 MG/DL See_Comment [Automated [facility]] The system which generated this result transmitted reference range: <100 MG/DL. The reference range was not used to interpret this result as normal/abnormal. CHOLESTEROL (test code = 2093-3) 143 MG/DL See_Comment [Automated messa ge] The system which generated this result transmitted reference range: <200 MG/DL. The reference range was not used to interpret this result as normal/abnormal. HDL CHOLESTEROL (test code = 2085-9) 59 MG/DL See_Comment [Automated messa ge] The system which generated this result transmitted reference range: >39 MG/DL. The reference range was not used to interpret this result as normal/abnormal. RISK RATIO LDL/HDL (test code = 38442-9) 1.19 RATIO See_Comment [Automated message] The system which generated this result transmitted reference range: <3.22 RATIO. The reference range was not used to interpret this result as normal/abnormal. TRIGLYCERIDES (test code = 2571-8) 63 MG/DL See_Comment [Automated [facility]] The system which generated this result transmitted reference range: <150 MG/DL. The reference range was not used to interpret this result as normal/abnormal. ALBUMIN, URINE, RANDOM (test code = 47909-0) 3.7 MG/DL NOT ESTAB MG/DL CALC ALBUMIN/CREAT, RND (test code = 49277-9) 20 MG/G See_Comment [Automated messa ge] The system which generated this result transmitted reference range: <30 MG/G. The reference range was not used to interpret this result as normal/abnormal. CREATININE, URINE, CONC. (test code = 2161-8) 183.3 MG/DL NOT ESTAB MG/DL ALBUMIN (test code = 1751-7) 4.4 G/DL See_Comment [Automated messa ge] The system which generated this result transmitted reference range: 3.5-5.2 G/DL. The reference range was not used to interpret this result as normal/abnormal. ALKALINE PHOSPHATASE (test code = 6768-6) 88 U/L See_Comment [Automated message] The system which generated this result transmitted reference range: 40-140 U/L. The reference range was not used to interpret this result as normal/abnormal. BILIRUBIN, TOTAL (test code = 1975-2) 0.3 MG/DL See_Comment [Automated messa ge] The system which generated this result transmitted reference range: <=1.2 MG/DL. The reference range was not used to interpret this result as normal/abnormal. BUN (test code = 3094-0) 21 MG/DL See_Comment [Automated messa ge] The system which generated this result transmitted reference range: 8-23 MG/DL. The reference range was not used to interpret this result as normal/abnormal. CALCIUM (test code = 13259-2) 10.5 MG/DL See_Comment [Automated messa ge] The system which generated this result transmitted reference range: 8.5-10.5 MG/DL. The reference range was not used to interpret this result as normal/abnormal. CALC A/G RATIO (test code = 1759-0) 1.8 RATIO See_Comment [Automated messa ge] The system which generated this result transmitted reference range: 1.0-2.6 RATIO. The reference range was not used to interpret this result as normal/abnormal. CALC BUN/CREAT (test code = 3097-3) 19 RATIO See_Comment [Automated messa ge] The system which generated this result transmitted reference range: 6-28 RATIO. The reference range was not used to interpret this result as normal/abnormal. CALC GLOBULIN (test code = 70623-8) 2.4 G/DL See_Comment [Automated messa ge] The system which generated this result transmitted reference range: 1.9-3.7 G/DL. The reference range was not used to interpret this result as normal/abnormal. CARBON DIOXIDE (test code = 1963-8) 26 MEQ/L See_Comment [Automated messa ge] The system which generated this result transmitted reference range: 19-31 MEQ/L. The reference range was not used to interpret this result as normal/abnormal. CHLORIDE (test code = 2075-0) 109 MEQ/L See_Comment H [Automated messa ge] The system which generated this result transmitted reference range: 95-107 MEQ/L. The reference range was not used to interpret this result as normal/abnormal. CREATININE (test code = 2160-0) 1.08 MG/DL See_Comment [Automated messa ge] The system which generated this result transmitted reference range: 0.60-1.30 MG/DL. The reference range was not used to interpret this result as normal/abnormal. eGFR (2020 CKD-EPI) (test code = 29396-8) 58 ML/MIN/1.73 See_Comment L [Automated message] The system which generated this result transmitted reference range: >60 ML/MIN/1.73. The reference range was not used to interpret this result as normal/abnormal. GLUCOSE (test code = 1558-6) 118 MG/DL See_Comment H [Automated messa ge] The system which generated this result transmitted reference range: 70-99 MG/DL. The reference range was not used to interpret this result as normal/abnormal. POTASSIUM (test code = 2823-3) 4.0 MEQ/L See_Comment [Automated messa ge] The system which generated this result transmitted reference range: 3.5-5.4 MEQ/L. The reference range was not used to interpret this result as normal/abnormal. PROTEIN, TOTAL (test code = 2885-2) 6.8 G/DL See_Comment [Automated messa ge] The system which generated this result transmitted reference range: 6.1-8.3 G/DL. The reference range was not used to interpret this result as normal/abnormal. AST (test code = 1920-8) 14 U/L See_Comment [Automated messa ge] The system which generated this result transmitted reference range: 9-40 U/L. The reference range was not used to interpret this result as normal/abnormal. ALT (test code = 1742-6) 6 U/L See_Comment [Automated messa ge] The system which generated this result transmitted reference range: 5-40 U/L. The reference range was not used to interpret this result as normal/abnormal. SODIUM (test code = 2951-2) 147 MEQ/L See_Comment H [Automated messa ge] The system which generated this result transmitted reference range: 133-146 MEQ/L. The reference range was not used to interpret this result as normal/abnormal. FREE T4 (THYROXINE)2024-04-04 00:00:00* Test Item Value Reference Range Interpretation Comme nts NUCLEATED RBCS (test code = 39401-2) 0.0 /100 WBC'S See_Comment [Automated message] The system which generated this result transmitted reference range: 0.0 /100 WBC'S. The reference range was not used to interpret this result as normal/abnormal. ABSOLUTE EOSINOPHILS (test code = 87225-5) 0.02 K/UL See_Comment [Automated message] The system which generated this result transmitted reference range: 0.00-0.50 K/UL. The reference range was not used to interpret this result as normal/abnormal. ABSOLUTE LYMPHOCYTES (test code = 48578-2) 1.19 K/UL See_Comment [Automated message] The system which generated this result transmitted reference range: 1.00-4.00 K/UL. The reference range was not used to interpret this result as normal/abnormal. ABSOLUTE MONOCYTES (test code = 40918-7) 0.49 K/UL See_Comment [Automated message] The system which generated this result transmitted reference range: 0.20-1.00 K/UL. The reference range was not used to interpret this result as normal/abnormal. ABSOLUTE NEUTROPHILS (test code = 51273-1) 4.83 K/UL See_Comment [Automated message] The system which generated this result transmitted reference range: 1.50-7.50 K/UL. The reference range was not used to interpret this result as normal/abnormal. BASOPHILS (test code = 78928-2) 0.5 % EOSINOPHILS (test code = 61719-8) 0.3 % HEMATOCRIT (test code = 12046-6) 34.8 % See_Comment [Automated messa ge] The system which generated this result transmitted reference range: 34.0-45.0 %. The reference range was not used to interpret this result as normal/abnormal. HEMOGLOBIN (test code = 718-7) 11.2 G/DL See_Comment L [Automated messa ge] The system which generated this result transmitted reference range: 11.5-15.5 G/DL. The reference range was not used to interpret this result as normal/abnormal. LYMPHOCYTES (test code = 25700-2) 18.1 % MCH (test code = 55368-3) 28.4 PG See_Comment [Automated messa ge] The system which generated this result transmitted reference range: 25.0-33.0 PG. The reference range was not used to interpret this result as normal/abnormal. MCHC (test code = 23893-5) 32.2 G/DL See_Comment [Automated messa ge] The system which generated this result transmitted reference range: 31.0-36.0 G/DL. The reference range was not used to interpret this result as normal/abnormal. MCV (test code = 43054-3) 88.3 fL See_Comment [Automated messa ge] The system which generated this result transmitted reference range: 80.0-99.0 fL. The reference range was not used to interpret this result as normal/abnormal. MONOCYTES (test code = 59113-2) 7.4 % NEUTROPHILS (test code = 58430-5) 73.4 % PLATELET COUNT (test code = 36036-6) 194 K/UL See_Comment [Automated messa ge] The system which generated this result transmitted reference range: 130-400 K/UL. The reference range was not used to interpret this result as normal/abnormal. RBC (test code = 82777-8) 3.94 M/UL See_Comment [Automated messa ge] The system which generated this result transmitted reference range: 3.80-5.40 M/UL. The reference range was not used to interpret this result as normal/abnormal. RDW (test code = 58057-9) 13.0 % See_Comment [Automated messa ge] The system which generated this result transmitted reference range: 11.5-15.0 %. The reference range was not used to interpret this result as normal/abnormal. WBC (test code = 14838-9) 6.6 K/UL See_Comment [Automated messa ge] The system which generated this result transmitted reference range: 3.5-11.0 K/UL. The reference range was not used to interpret this result as normal/abnormal. HEMOGLOBIN A1c (test code = 4548-4) 5.6 % See_Comment [Automated messa ge] The system which generated this result transmitted reference range: 4.2-5.6 %. The reference range was not used to interpret this result as normal/abnormal. TSH REFLEX TO FREE T4 (test code = 18413-3) 0.071 UIU/ML See_Comment L [Automated message] The system which generated this result transmitted reference range: 0.400-4.100 UIU/ML. The reference range was not used to interpret this result as normal/abnormal. CALC LDL CHOL (test code = 82325-9) 77 MG/DL See_Comment [Automated messa ge] The system which generated this result transmitted reference range: <100 MG/DL. The reference range was not used to interpret this result as normal/abnormal. CHOLESTEROL (test code = 2093-3) 146 MG/DL See_Comment [Automated messa ge] The system which generated this result transmitted reference range: <200 MG/DL. The reference range was not used to interpret this result as normal/abnormal. HDL CHOLESTEROL (test code = 2085-9) 57 MG/DL See_Comment [Automated [facility]] The system which generated this result transmitted reference range: >39 MG/DL. The reference range was not used to interpret this result as normal/abnormal. RISK RATIO LDL/HDL (test code = 56836-2) 1.35 RATIO See_Comment [Automated message] The system which generated this result transmitted reference range: <3.22 RATIO. The reference range was not used to interpret this result as normal/abnormal. TRIGLYCERIDES (test code = 2571-8) 41 MG/DL See_Comment [Automated [facility]] The system which generated this result transmitted reference range: <150 MG/DL. The reference range was not used to interpret this result as normal/abnormal. ALBUMIN, URINE, RANDOM (test code = 31552-5) 4.3 MG/DL NOT ESTAB MG/DL CALC ALBUMIN/CREAT, RND (test code = 39769-3) 88 MG/G See_Comment H [Automated [facility]] The system which generated this result transmitted reference range: <30 MG/G. The reference range was not used to interpret this result as normal/abnormal. CREATININE, URINE, CONC. (test code = 2161-8) 48.6 MG/DL NOT ESTAB MG/DL ALBUMIN (test code = 1751-7) 4.6 G/DL See_Comment [Automated [facility]] The system which generated this result transmitted reference range: 3.5-5.2 G/DL. The reference range was not used to interpret this result as normal/abnormal. ALKALINE PHOSPHATASE (test code = 6768-6) 72 U/L See_Comment [Automated message] The system which generated this result transmitted reference range: 40-140 U/L. The reference range was not used to interpret this result as normal/abnormal. BILIRUBIN, TOTAL (test code = 1975-2) 0.6 MG/DL See_Comment [Automated [facility]] The system which generated this result transmitted reference range: <=1.2 MG/DL. The reference range was not used to interpret this result as normal/abnormal. BUN (test code = 3094-0) 40 MG/DL See_Comment H [Automated messa ge] The system which generated this result transmitted reference range: 8-23 MG/DL. The reference range was not used to interpret this result as normal/abnormal. CALCIUM (test code = 51832-9) 10.5 MG/DL See_Comment [Automated messa ge] The system which generated this result transmitted reference range: 8.5-10.5 MG/DL. The reference range was not used to interpret this result as normal/abnormal. CALC A/G RATIO (test code = 1759-0) 2.3 RATIO See_Comment [Automated messa ge] The system which generated this result transmitted reference range: 1.0-2.6 RATIO. The reference range was not used to interpret this result as normal/abnormal. CALC BUN/CREAT (test code = 3097-3) 22 RATIO See_Comment [Automated messa ge] The system which generated this result transmitted reference range: 6-28 RATIO. The reference range was not used to interpret this result as normal/abnormal. CALC GLOBULIN (test code = 12070-3) 2.0 G/DL See_Comment [Automated messa ge] The system which generated this result transmitted reference range: 1.9-3.7 G/DL. The reference range was not used to interpret this result as normal/abnormal. CARBON DIOXIDE (test code = 1963-8) 22 MEQ/L See_Comment [Automated messa ge] The system which generated this result transmitted reference range: 19-31 MEQ/L. The reference range was not used to interpret this result as normal/abnormal. CHLORIDE (test code = 2075-0) 100 MEQ/L See_Comment [Automated messa ge] The system which generated this result transmitted reference range: 95-107 MEQ/L. The reference range was not used to interpret this result as normal/abnormal. CREATININE (test code = 2160-0) 1.79 MG/DL See_Comment H [Automated messa ge] The system which generated this result transmitted reference range: 0.60-1.30 MG/DL. The reference range was not used to interpret this result as normal/abnormal. eGFR (2020 CKD-EPI) (test code = 91289-0) 32 ML/MIN/1.73 See_Comment L [Automated message] The system which generated this result transmitted reference range: >60 ML/MIN/1.73. The reference range was not used to interpret this result as normal/abnormal. GLUCOSE (test code = 1558-6) 90 MG/DL See_Comment [Automated messa ge] The system which generated this result transmitted reference range: 70-99 MG/DL. The reference range was not used to interpret this result as normal/abnormal. POTASSIUM (test code = 2823-3) 4.7 MEQ/L See_Comment [Automated messa ge] The system which generated this result transmitted reference range: 3.5-5.4 MEQ/L. The reference range was not used to interpret this result as normal/abnormal. PROTEIN, TOTAL (test code = 2885-2) 6.6 G/DL See_Comment [Automated messa ge] The system which generated this result transmitted reference range: 6.1-8.3 G/DL. The reference range was not used to interpret this result as normal/abnormal. AST (test code = 1920-8) 14 U/L See_Comment [Automated messa ge] The system which generated this result transmitted reference range: 9-40 U/L. The reference range was not used to interpret this result as normal/abnormal. ALT (test code = 1742-6) 10 U/L See_Comment [Automated messa ge] The system which generated this result transmitted reference range: 5-40 U/L. The reference range was not used to interpret this result as normal/abnormal. SODIUM (test code = 2951-2) 136 MEQ/L See_Comment [Automated messa ge] The system which generated this result transmitted reference range: 133-146 MEQ/L. The reference range was not used to interpret this result as normal/abnormal. FREE T4 (THYROXINE) (test code = 3024-7) 1.96 NG/DL See_Comment H [Automated message] The system which generated this result transmitted reference range: 0.80-1.90 NG/DL. The reference range was not used to interpret this result as normal/abnormal. CBC W/AUTO [id number] 00:00:00* Test Item Value Reference Range Interpretation Comme nts NUCLEATED RBCS (test code = 21976-6) 0.0 /100 WBC'S See_Comment [Automated messa ge] The system which generated this result transmitted reference range: 0.0 /100 WBC'S. The reference range was not used to interpret this result as normal/abnormal. ABSOLUTE EOSINOPHILS (test code = 32670-2) 0.07 K/UL See_Comment [Automated messa ge] The system which generated this result transmitted reference range: 0.00-0.50 K/UL. The reference range was not used to interpret this result as normal/abnormal. ABSOLUTE LYMPHOCYTES (test code = 53202-9) 1.39 K/UL See_Comment [Automated messa ge] The system which generated this result transmitted reference range: 1.00-4.00 K/UL. The reference range was not used to interpret this result as normal/abnormal. ABSOLUTE MONOCYTES (test code = 87473-6) 0.52 K/UL See_Comment [Automated messa ge] The system which generated this result transmitted reference range: 0.20-1.00 K/UL. The reference range was not used to interpret this result as normal/abnormal. ABSOLUTE NEUTROPHILS (test code = 89897-4) 3.82 K/UL See_Comment [Automated messa ge] The system which generated this result transmitted reference range: 1.50-7.50 K/UL. The reference range was not used to interpret this result as normal/abnormal. BASOPHILS (test code = 32156-8) 0.5 % EOSINOPHILS (test code = 32995-0) 1.2 % HEMATOCRIT (test code = 83005-4) 38.4 % See_Comment [Automated messa ge] The system which generated this result transmitted reference range: 34.0-45.0 %. The reference range was not used to interpret this result as normal/abnormal. HEMOGLOBIN (test code = 718-7) 12.7 G/DL See_Comment [Automated messa ge] The system which generated this result transmitted reference range: 11.5-15.5 G/DL. The reference range was not used to interpret this result as normal/abnormal. LYMPHOCYTES (test code = 03136-8) 23.8 % MCH (test code = 76121-9) 29.7 PG See_Comment [Automated messa ge] The system which generated this result transmitted reference range: 25.0-33.0 PG. The reference range was not used to interpret this result as normal/abnormal. MCHC (test code = 57971-0) 33.1 G/DL See_Comment [Automated messa ge] The system which generated this result transmitted reference range: 31.0-36.0 G/DL. The reference range was not used to interpret this result as normal/abnormal. MCV (test code = 20197-6) 89.7 fL See_Comment [Automated messa ge] The system which generated this result transmitted reference range: 80.0-99.0 fL. The reference range was not used to interpret this result as normal/abnormal. MONOCYTES (test code = 66704-6) 8.9 % NEUTROPHILS (test code = 21760-7) 65.4 % PLATELET COUNT (test code = 00234-5) 299 K/UL See_Comment [Automated messa ge] The system which generated this result transmitted reference range: 130-400 K/UL. The reference range was not used to interpret this result as normal/abnormal. RBC (test code = 45086-1) 4.28 M/UL See_Comment [Automated messa ge] The system which generated this result transmitted reference range: 3.80-5.40 M/UL. The reference range was not used to interpret this result as normal/abnormal. RDW (test code = 32103-1) 13.0 % See_Comment [Automated messa ge] The system which generated this result transmitted reference range: 11.5-15.0 %. The reference range was not used to interpret this result as normal/abnormal. WBC (test code = 27233-0) 5.8 K/UL See_Comment [Automated messa ge] The system which generated this result transmitted reference range: 3.5-11.0 K/UL. The reference range was not used to interpret this result as normal/abnormal. ECG 12 [id number] 19:40:35SR 60, MN 218, QRS 102, QTC 438.[facility] W/AUTO [id number] 00:00:00* Test Item Value Reference Range Interpretation Comme nts NUCLEATED RBCS (test code = 82231-6) 0.0 /100 WBC'S See_Comment [Automated messa ge] The system which generated this result transmitted reference range: 0.0 /100 WBC'S. The reference range was not used to interpret this result as normal/abnormal. ABSOLUTE EOSINOPHILS (test code = 27536-4) 0.07 K/UL See_Comment [Automated messa ge] The system which generated this result transmitted reference range: 0.00-0.50 K/UL. The reference range was not used to interpret this result as normal/abnormal. ABSOLUTE LYMPHOCYTES (test code = 57776-1) 1.52 K/UL See_Comment [Automated messa ge] The system which generated this result transmitted reference range: 1.00-4.00 K/UL. The reference range was not used to interpret this result as normal/abnormal. ABSOLUTE MONOCYTES (test code = 20916-1) 0.52 K/UL See_Comment [Automated messa ge] The system which generated this result transmitted reference range: 0.20-1.00 K/UL. The reference range was not used to interpret this result as normal/abnormal. ABSOLUTE NEUTROPHILS (test code = 83596-3) 3.36 K/UL See_Comment [Automated messa ge] The system which generated this result transmitted reference range: 1.50-7.50 K/UL. The reference range was not used to interpret this result as normal/abnormal. BASOPHILS (test code = 63653-2) 0.4 % EOSINOPHILS (test code = 47242-0) 1.3 % HEMATOCRIT (test code = 66295-7) 42.9 % See_Comment [Automated messa ge] The system which generated this result transmitted reference range: 34.0-45.0 %. The reference range was not used to interpret this result as normal/abnormal. HEMOGLOBIN (test code = 718-7) 13.8 G/DL See_Comment [Automated messa ge] The system which generated this result transmitted reference range: 11.5-15.5 G/DL. The reference range was not used to interpret this result as normal/abnormal. LYMPHOCYTES (test code = 60254-5) 27.6 % MCH (test code = 66704-6) 29.3 PG See_Comment [Automated messa ge] The system which generated this result transmitted reference range: 25.0-33.0 PG. The reference range was not used to interpret this result as normal/abnormal. MCHC (test code = 08723-0) 32.2 G/DL See_Comment [Automated messa ge] The system which generated this result transmitted reference range: 31.0-36.0 G/DL. The reference range was not used to interpret this result as normal/abnormal. MCV (test code = 83772-3) 91.1 fL See_Comment [Automated messa ge] The system which generated this result transmitted reference range: 80.0-99.0 fL. The reference range was not used to interpret this result as normal/abnormal. MONOCYTES (test code = 33963-6) 9.5 % NEUTROPHILS (test code = 65428-5) 61.0 % PLATELET COUNT (test code = 11047-6) 197 K/UL See_Comment [Automated messa ge] The system which generated this result transmitted reference range: 130-400 K/UL. The reference range was not used to interpret this result as normal/abnormal. RBC (test code = 38185-4) 4.71 M/UL See_Comment [Automated messa ge] The system which generated this result transmitted reference range: 3.80-5.40 M/UL. The reference range was not used to interpret this result as normal/abnormal. RDW (test code = 18985-6) 13.1 % See_Comment [Automated messa ge] The system which generated this result transmitted reference range: 11.5-15.0 %. The reference range was not used to interpret this result as normal/abnormal. WBC (test code = 56991-2) 5.5 K/UL See_Comment [Automated messa ge] The system which generated this result transmitted reference range: 3.5-11.0 K/UL. The reference range was not used to interpret this result as normal/abnormal. CBC W/AUTO [id number] 00:00:00* Test Item Value Reference Range Interpretation Comme nts NUCLEATED RBCS (test code = 85345-4) 0.0 /100 WBC'S See_Comment [Automated messa ge] The system which generated this result transmitted reference range: 0.0 /100 WBC'S. The reference range was not used to interpret this result as normal/abnormal. ABSOLUTE EOSINOPHILS (test code = 50536-9) 0.26 K/UL See_Comment [Automated messa ge] The system which generated this result transmitted reference range: 0.00-0.50 K/UL. The reference range was not used to interpret this result as normal/abnormal. ABSOLUTE LYMPHOCYTES (test code = 67538-8) 1.79 K/UL See_Comment [Automated messa ge] The system which generated this result transmitted reference range: 1.00-4.00 K/UL. The reference range was not used to interpret this result as normal/abnormal. ABSOLUTE MONOCYTES (test code = 69545-8) 0.58 K/UL See_Comment [Automated messa ge] The system which generated this result transmitted reference range: 0.20-1.00 K/UL. The reference range was not used to interpret this result as normal/abnormal. ABSOLUTE NEUTROPHILS (test code = 75704-2) 4.16 K/UL See_Comment [Automated messa ge] The system which generated this result transmitted reference range: 1.50-7.50 K/UL. The reference range was not used to interpret this result as normal/abnormal. BASOPHILS (test code = 89923-4) 0.6 % EOSINOPHILS (test code = 82980-8) 3.8 % HEMATOCRIT (test code = 37899-0) 45.5 % See_Comment H [Automated messa ge] The system which generated this result transmitted reference range: 34.0-45.0 %. The reference range was not used to interpret this result as normal/abnormal. HEMOGLOBIN (test code = 718-7) 15.6 G/DL See_Comment H [Automated messa ge] The system which generated this result transmitted reference range: 11.5-15.5 G/DL. The reference range was not used to interpret this result as normal/abnormal. LYMPHOCYTES (test code = 21249-7) 26.1 % MCH (test code = 98485-4) 30.2 PG See_Comment [Automated messa ge] The system which generated this result transmitted reference range: 25.0-33.0 PG. The reference range was not used to interpret this result as normal/abnormal. MCHC (test code = 33902-3) 34.3 G/DL See_Comment [Automated messa ge] The system which generated this result transmitted reference range: 31.0-36.0 G/DL. The reference range was not used to interpret this result as normal/abnormal. MCV (test code = 47904-0) 88.0 fL See_Comment [Automated messa ge] The system which generated this result transmitted reference range: 80.0-99.0 fL. The reference range was not used to interpret this result as normal/abnormal. MONOCYTES (test code = 92509-6) 8.5 % NEUTROPHILS (test code = 47252-2) 60.7 % PLATELET COUNT (test code = 24485-9) 207 K/UL See_Comment [Automated [employer]] The system which generated this result transmitted reference range: 130-400 K/UL. The reference range was not used to interpret this result as normal/abnormal. RBC (test code = 36175-8) 5.17 M/UL See_Comment [Automated [facility]] The system which generated this result transmitted reference range: 3.80-5.40 M/UL. The reference range was not used to interpret this result as normal/abnormal. RDW (test code = 22127-6) 12.7 % See_Comment [Automated [employer]] The system which generated this result transmitted reference range: 11.5-15.0 %. The reference range was not used to interpret this result as normal/abnormal. WBC (test code = 03666-3) 6.9 K/UL See_Comment [Automated [employer]] The system which generated this result transmitted reference range: 3.5-11.0 K/UL. The reference range was not used to interpret this result as normal/abnormal. Hepatic function [id number] 15:00:00* Test Item Value Reference Range Interpretation Comme nts PROTEIN, TOTAL (test code = 2885-2) 6.5 g/dL 6.1-8.1 ALBUMIN (test code = 1751-7) 4.2 g/dL 3.6-5.1 GLOBULIN (test code = 32204-2) 2.3 See_Comment [Automated message] The system which generated this result transmitted reference range: 1.9 - 3.7 g/dL (calc). The reference range was not used to interpret this result as normal/abnormal. ALBUMIN/GLOBULIN RATIO (test code = 1759-0) 1.8 See_Comment [Automated message] The system which generated this result transmitted reference range: 1.0 - 2.5 (calc). The reference range was not used to interpret this result as normal/abnormal. BILIRUBIN, TOTAL (test code = 1975-2) 0.4 mg/dL 0.2-1.2 BILIRUBIN, DIRECT (test code = 1967-7) 0.1 mg/dL See_Comment [Automated message] The system which generated this result transmitted reference range: < OR = 0.2. The reference range was not used to interpret this result as normal/abnormal. BILIRUBIN, INDIRECT (test code = 1970-) 0.3 See_Comment [Automated message] The system which generated this result transmitted reference range: 0.2 - 1.2 mg/dL (calc). The reference range was not used to interpret this result as normal/abnormal. ALKALINE PHOSPHATASE (test code = 6768-6) 73 U/L 37-153 AST (test code = 1920-8) 21 U/L 10-35 ALT (test code = 1742-6) 19 U/L 6-29 RAC (test code = RAC) Performing Organization Information: ? ?Site ID: RGA ? ?Name: [employer] [facility] ? ?Address: [address] [place], [place] [address] ? ?Director: GAGE STAFFORD MD [facility] [id number] 15:00:00* Test Item Value Reference Range Interpretation Comments AMIODARONE (test code = 3330-8) 0.7 See_Comment L This test was developed and its analytical performance characteristics have been determined by [employer]. It has not been cleared or approved by theFDA. This assay has been validated pursuant to the CLIA regulations and is used for clinical purposes. [Automated message] The system which generated this result transmitted reference range: 1.5 - 2.5 mcg/mL. The reference range was not used to interpret this result as normal/abnormal. DESETHYLAMIODARONE (test code = 6774-4) 0.8 mcg/mL L ? ? ?Refere nce Range: ? 1.5-2.5 ? ? ?Toxic: ? >2.5 ?Toxic effects have been observed ? ? ?at levels as low as 2.0 mcg/mL. This test was developed and its analytical performance characteristics have been determined by [employer]. It has not been cleared or approved by theFDA. This assay has been validated pursuant to the CLIA regulations and is used for clinical purposes. RAC (test code = RAC) Performing Organization Information: ? ?Site ID: SLI ? ?Name: [facility] [facility] ? ?Address: [address] [place] [id number] ? ?Director: RUTH ALBA MD Lab Interpretation (test code = 34147-3) Abnormal [facility] 12 [id number] 19:33:00* Test Item Value Reference Range Interpretation Comme nts Lab Interpretation (test cod e = 76506-2) Abnormal [facility] Notes Date/Time Note Provider Source 2025-02-28 10:31:39 Referral given to PSS to be Faxed to [facility]. T Trisha Villegas RN [facility] 2025-02-28 10:27:28 Patient requested a referral for Management Developer Dr. Manas Noble with [facility]. Per patient She is needing a stress test done. Referral Pending Please review, complete and sign. E [facility] 2025-02-15 16:24:20 Medication (Benzonatate 200mg cap) Denied by [employer] Because: "The Medicare rule in the Prescription Drug Manual (Chapter 6, Section 20.1) says drugs used for the symptomatic relief of cough and colds are excluded from Medicare Part D coverage. [employer] follows Medicare rules. Your drug is used to relieve symptoms of cough and cold and per Medicare rules is not covered." Placed in providers folder for review. E Villegas RN [facility] 2025-02-15 15:26:52 [employer] forms received via fax. Please review and complete. [place] Reed [facility] 2025-02-15 09:32:13 Attempted contact to patient left message to return call to discuss CXR. No pneumonia identified. Narrative & Impression EXAM: XR CHEST 2 VW TECHNIQUE: One view AP chest radiograph. COMPARISON: X-ray chest dated 07/27/2017 HISTORY: 64 years old Female. chest tightness FINDINGS: Left chest dual-lead pacemaker with leads projecting over the right atrium and right ventricle. Lungs:Normal lung volumes. The lungs are well expanded and clear. No pleural abnormalities. Heart/Mediastinum: The cardiomediastinal silhouette is normal in size . Bones and soft tissues: Prior sternotomy. No osseous lesions visualized. The soft tissues appear normal. IMPRESSION No radiographic evidence of acute cardiopulmonary process. APPLIED MARINE PHYSICS PROFESSOR-FAMILY MIDLEVEL PROVIDER [facility] 2025-02-14 17:11:52 PA for Benzonatate 200mg initiated on 02/14/2025 (Garcia: [id number]) YANN We denied coverage for this drug because: Your drug is used to relieve symptoms of cough and cold and per Medicare rules is not covered. Patient contacted and stated that she has already paid OOP for this med. No further needs were voiced. Brielle Velez LVN [facility] 2025-02-14 17:05:37 Images from the original note were not included. [place] Reed [facility] 2025-02-11 16:22:29 PSS informed we will have to send to HIM for scan due to the amount of pages (200+). I left records in providers folder for review on 02/13/2025. Maria L Jonas MA [facility] 2025-02-11 13:50:15 Please scan these into patients chart for review. Thank you, ELISEO Holliday [facility] 2025-02-07 11:13:32 Received medical records and placed in providers folder for review. Trisha Villegas RN [facility] 2025-02-07 10:09:22 Medical records received please review and scan . [place] [facility] 2024-06-04 12:39:03 Name and verified, pt is aware of results. Pt verbalized understanding. Nisreen Aquino RN 06/04/2024 12:39 PM [employer]NAL INSURANCE OFFICER Nisreen Aquino RN [facility] 2024-06-04 11:49:08 Jayshree Singletary is a 63 year old female Pt returning call missed regarding results. Would like a return call. Thank you [employer] INSURANCE OFFICER Faby Segura [facility]
[2025-03-25 12:14] LABS: Absolute Lymphocytes (CBC) 1.4 K/uL (0.7-4.9); Hematocrit 45.1 % (36.0-45.0); Hemoglobin 14.9 g/dL (12.0-15.0); MCH 28.2 pg (27.0-35.0); MCHC 33.0 g/dL (32.0-36.0); MCV 85.4 fL (80-100); MPV 8.3 fL (7.6-11.3); Nucleated RBC Absolute Count 0.0 (0-0); Nucleated Red Blood Cells % 0.1 % (0-0); RBC Red Blood Cell Count 5.28 M/uL (3.86-4.86); White Blood Count 7.40 thou/uL (4.3-10.9)
[2025-03-25 12:35] LABS: ALT/SGPT 20 U/L (13-56); AST/SGOT 15 U/L (15-37); Albumin 3.8 g/dL (3.4-5.0); Albumin/Globulin Ratio 1.0 (1.1-1.8); Alkaline Phosphatase 80 U/L (45-117); Anion Gap 10.5 mEq/L (5.0-15.0); BUN Blood Urea Nitrogen 25 mg/dL (7-18); Bilirubin Indirect, Calculated 0.2 mg/dL (0.2-0.8); Globulin 3.7 g/dL (2.3-3.5); Glucose Level 183 mg/dL (74-106); Magnesium 2.1 mg/dL (1.6-2.4); NT PRO-BNP 729 pg/mL (<125); Potassium 3.5 mEq/L (3.5-5.1); Troponin High Sensitivity 17.9 pg/mL (<58.9)
--- NOTE | 2025-03-25 12:51 | RAD REPORT ---
EXAM: Chest Single View HISTORY: 64 years Female PALPITATIONS COMPARISON: 07/07/19 FINDINGS: LUNGS/PLEURA: The lungs are clear. No pleural effusions or pneumothorax. No pulmonary edema. CARDIAC/MEDIASTINUM: Mild cardiomegaly UPPER ABDOMEN: No significant abnormality. BONES: Sternotomy. No acute abnormality. LINES/TUBES/OTHER: AICD IMPRESSION: No evidence of acute cardiopulmonary disease.
--- NOTE | 2025-03-25 14:11 | EDPHYS ---
Physician Documentation [facility] Name: Vane Lee Age: 64 yrs Sex: Female : 1960 Arrival Date: 03/25/2025 Time: 11:27 Bed 7 Private MD: ED Physician Joaquin Bai HPI: 03/25 14:04 This 64 yrs old Female presents to ER via EMS with complaints of Shortness Of Breath - sp3 pacemaker/defib. 14:04 64-year-old female with history of atrial fibrillation, hyperlipidemia, hypertension, sp3 who has an Horn defibrillator pacemaker presents to the ED due to her defibrillator firing at home after she had a sensation of palpitations. She has mild chest pain from the shock however she had no chest pain prior. She denies any headache, fever, shortness of breath, abdominal pain, nausea, vomiting, diarrhea, syncope, or any other signs or symptoms on ROS at this time.. Historical: - Allergies: 12:15 No Known Allergies; iw - PMHx: 12:15 Atrial Fib; Anxiety; High Cholesterol; Hypertension; Hypothyroidism; iw - PSHx: 12:15 pacemaker; Coronary artery bypass graft; iw - Immunization history:: Adult Immunizations up to date. - Infectious Disease History:: Denies. - Social history:: Smoking status: unknown. ROS: 14:08 Constitutional: Negative for fever, chills, and weight loss, Eyes: Negative for injury, sp3 pain, redness, and discharge, ENT: Negative for injury, pain, and discharge, Neck: Negative for injury, pain, and swelling, Respiratory: Negative for shortness of breath, cough, wheezing, and pleuritic chest pain, Abdomen/GI: Negative for abdominal pain, nausea, vomiting, diarrhea, and constipation, Back: Negative for injury and pain, MS/Extremity: Negative for injury and deformity, Skin: Negative for injury, rash, and discoloration, Neuro: Negative for headache, weakness, numbness, tingling, and seizure, Psych: Negative for depression, anxiety, suicide ideation, homicidal ideation, and hallucinations, Allergy/Immunology: Negative for hives, rash, and allergies, Endocrine: Negative for neck swelling, polydipsia, polyuria, polyphagia, and marked weight changes, Hematologic/Lymphatic: Negative for swollen nodes, abnormal bleeding, and unusual bruising, 14:08 All other systems are negative, Exam: 14:08 Constitutional: This is a well developed, well nourished patient who is awake, alert, sp3 and in no acute distress. Head/Face: Normocephalic, atraumatic. Eyes: Pupils equal round and reactive to light, extra-ocular motions intact. Lids and lashes normal. Conjunctiva and sclera are non-icteric and not injected. Cornea within normal limits. Periorbital areas with no swelling, redness, or edema. Neck: Trachea midline, no thyromegaly or masses palpated, and no cervical lymphadenopathy. Supple, full range of motion without nuchal rigidity, or vertebral point tenderness. No Meningismus. Chest/axilla: Normal chest wall appearance and motion. Nontender with no deformity. No lesions are appreciated. Cardiovascular: Regular rate and rhythm with a normal S1 and S2. No gallops, murmurs, or rubs. Normal PMI, no JVD. No pulse deficits. Respiratory: Lungs have equal breath sounds bilaterally, clear to auscultation and percussion. No rales, rhonchi or wheezes noted. No increased work of breathing, no retractions or nasal flaring. Abdomen/GI: Soft, non-tender, with normal bowel sounds. No distension or tympany. No guarding or rebound. No evidence of tenderness throughout. Back: No spinal tenderness. No costovertebral tenderness. Full range of motion. Skin: Warm, dry with normal turgor. Normal color with no rashes, no lesions, and no evidence of cellulitis. MS/ Extremity: Pulses equal, no cyanosis. Neurovascular intact. Full, normal range of motion. Neuro: Awake and alert, GCS 15, oriented to person, place, time, and situation. Cranial nerves II-XII grossly intact. Motor strength 5/5 in all extremities. Sensory grossly intact. Cerebellar exam normal. Normal gait. Psych: Awake, alert, with orientation to person, place and time. Behavior, mood, and affect are within normal limits. 14:08 ECG was reviewed by the Attending Physician. EKG demonstrates paced rhythm atrially with adequate ventricular capture and occasional PVC. Vital Signs: 12:14 BP 87 / 64; Pulse 67; Resp 19; Pulse Ox 98% on R/A; iw 12:31 BP 91 / 54; Pulse 70; Resp 18; Temp 98.3; Pulse Ox 97% on R/A; iw 13:00 BP 91 / 68; Pulse 61; Resp 16; Pulse Ox 96% on R/A; db 13:30 BP 100 / 70; Pulse 61; Resp 20; Pulse Ox 96% ; db 14:00 BP 107 / 70; Pulse 60; Resp 17; Pulse Ox 96% on R/A; db 15:00 BP 102 / 62; Pulse 60; Resp 14; Pulse Ox 97% on R/A; db 15:30 BP 115 / 69; Pulse 60; Resp 17; Pulse Ox 97% on R/A; db 16:30 BP 114 / 68; Pulse 60; Resp 18; Pulse Ox 96% ; db 19:37 BP 112 / 77; Pulse 62; Resp 16; Pulse Ox 98% on R/A; kd3 MDM: 11:50 Medical Screening Exam initiated sp3 14:08 Data reviewed: vital signs, nurses notes. ED course: Patient states that she was due sp3 for a stress test outpatient anyways which has already been scheduled for April. Interrogator is not currently functional. We will place patient in observation and run serial cardiac markers with cardiology evaluation as well. I discussed the case with cardiology and internal medicine both.. 03/25 11:55 Order name: Basic Metabolic Panel; Complete Time: 12:58 sp3 03/25 11:55 Order name: CBC with Diff; Complete Time: 12:58 sp3 03/25 11:55 Order name: LFT's; Complete Time: 12:58 sp3 03/25 11:55 Order name: Magnesium; Complete Time: 12:58 sp3 03/25 11:55 Order name: NT PRO-BNP; Complete Time: 12:58 sp3 03/25 11:55 Order name: PT-INR; Complete Time: 16:33 sp3 03/25 11:55 Order name: Troponin HS; Complete Time: 12:58 sp3 03/25 17:04 Order name: Basic Metabolic Panel EDMS 03/25 17:04 Order name: Basic Metabolic Panel EDMS 03/25 17:04 Order name: Basic Metabolic Panel EDMS 03/25 17:04 Order name: Basic Metabolic Panel EDMS 03/25 17:04 Order name: Basic Metabolic Panel EDCO 03/25 17:04 Order name: CBC with Automated Diff EDMS 03/25 17:04 Order name: CBC with Automated Diff EDMS 03/25 17:04 Order name: CBC with Automated Diff EDMS 03/25 17:04 Order name: CBC with Automated Diff EDMS 03/25 17:04 Order name: CBC with Automated Diff EDMS 03/25 17:04 Order name: T4 Free EDMS 03/25 17:04 Order name: T4 Free EDMS 03/25 17:04 Order name: Thyroid Stimulating Hormone EDMS 03/25 17:04 Order name: Thyroid Stimulating Hormone EDMS 03/25 17:04 Order name: Troponin High Sensitivity EDMS 03/25 17:04 Order name: Troponin High Sensitivity EDMS 03/25 17:04 Order name: Troponin High Sensitivity EDMS 03/25 11:55 Order name: XRAY Chest (1 view); Complete Time: 12:58 sp3 03/25 17:04 Order name: Echo with Doppler EDMS 03/25 11:55 Order name: EKG; Complete Time: 11:56 sp3 03/25 11:55 Order name: Cardiac monitoring; Complete Time: 12:05 sp3 03/25 11:55 Order name: EKG - Nurse/Tech; Complete Time: 12:05 sp3 03/25 11:55 Order name: IV Saline Lock; Complete Time: 12:05 sp3 03/25 11:55 Order name: Labs collected and sent; Complete Time: 12:05 sp3 03/25 11:55 Order name: O2 Per Protocol; Complete Time: 12:05 sp3 03/25 11:55 Order name: O2 Sat Monitoring; Complete Time: 12:05 sp3 Administered Medications: No medications were administered Disposition Summary: 03/25/25 14:10 Hospitalization Ordered Notes: Hospitalization Status: Observation sp3 Provider: Demond Ramos sp3 Location: Telemetry/MedSurg (observation) sp3 Condition: Stable sp3 Problem: new sp3 Symptoms: are unchanged sp3 Bed/Room Type: Standard sp3 Room Assignment: 404(03/25/25 17:45) bd Diagnosis - Defibrillator activation, palpitations sp3 Forms: - Medication Reconciliation Form sp3 - SBAR form sp3 - Leadership Thank You Letter sp3 Signatures: Dispatcher [employer] EDCarmen Marie Irene, RN RN iw Patel, Setul, MD MD sp3 Trisha Spence RN RN kd3 Corrections: (The following items were deleted from the chart) 17:45 14:10 sp3 bd
--- NOTE | 2025-03-25 14:11 | ER ---
Nurse's Notes [facility] Name: Vane Lee Age: 64 yrs Sex: Female : 1960 Arrival Date: 03/25/2025 Time: 11:27 Bed 7 Private MD: Diagnosis: Defibrillator activation, palpitations Presentation: 03/25 12:14 Chief complaint: EMS states: has been feeling SOB, today her defib shocked her and she iw got really anxious after it happened. Coronavirus screen: At this time, the client does not indicate any symptoms associated with coronavirus-19. Ebola Screen: No symptoms or risks identified at this time. Initial Sepsis Screen: Does the patient meet any 2 criteria? No. Patient's initial sepsis screen is negative. Does the patient have a suspected source of infection?. Risk Assessment: Do you want to hurt yourself or someone else? Patient reports no desire to harm self or others. Onset of symptoms was March 25, 2025. 12:14 Method Of Arrival: EMS: [facility] iw 12:14 Acuity: LUIS 3 iw 12:22 Acuity: LUIS 2 iw Triage Assessment: 19:34 Respiratory: Onset: The symptoms/episode began/occurred. kd3 Historical: - Allergies: 12:15 No Known Allergies; iw - PMHx: 12:15 Atrial Fib; Anxiety; High Cholesterol; Hypertension; Hypothyroidism; iw - PSHx: 12:15 pacemaker; Coronary artery bypass graft; iw - Immunization history:: Adult Immunizations up to date. - Infectious Disease History:: Denies. - Social history:: Smoking status: unknown. Screenin:[facility] ED Fall Risk Assessment (Adult) History of falling in the last 3 months, db including since admission No falls in past 3 months (0 pts) Confusion or Disorientation No (0 pts) Intoxicated or Sedated No (0 pts) Impaired Gait No (0 pts) Mobility Assist Device Used No (0 pt) Altered Elimination No (0 pt) Score/Fall Risk Level 0 - 2 = Low Risk Oriented to surroundings, Maintained a safe environment. Abuse screen: Denies threats or abuse. Denies injuries from another. Nutritional screening: No deficits noted. Tuberculosis screening: No symptoms or risk factors identified. Assessment: 15:15 Reassessment: Patient states feeling better. Patient states symptoms have improved. db 15:46 Reassessment: Patient appears in no apparent distress at this time. Patient and/or db family updated on plan of care and expected duration. Pain level reassessed. Patient is alert, oriented x 3, equal unlabored respirations, skin warm/dry/pink. General: Appears in no apparent distress. comfortable, Behavior is calm, cooperative. 16:36 Reassessment: Patient appears in no apparent distress at this time. Patient and/or db family updated on plan of care and expected duration. Pain level reassessed. Patient is alert, oriented x 3, equal unlabored respirations, skin warm/dry/pink. General: Appears in no apparent distress. comfortable, Behavior is calm, cooperative. Pain: Denies pain. Cardiovascular: Rhythm is Respiratory: Airway is patent Respiratory effort is even, unlabored. 18:02 Respiratory: Breath sounds are clear bilaterally. iw Vital Signs: 12:14 BP 87 / 64; Pulse 67; Resp 19; Pulse Ox 98% on R/A; iw 12:31 BP 91 / 54; Pulse 70; Resp 18; Temp 98.3; Pulse Ox 97% on R/A; iw 13:00 BP 91 / 68; Pulse 61; Resp 16; Pulse Ox 96% on R/A; db 13:30 BP 100 / 70; Pulse 61; Resp 20; Pulse Ox 96% ; db 14:00 BP 107 / 70; Pulse 60; Resp 17; Pulse Ox 96% on R/A; db 15:00 BP 102 / 62; Pulse 60; Resp 14; Pulse Ox 97% on R/A; db 15:30 BP 115 / 69; Pulse 60; Resp 17; Pulse Ox 97% on R/A; db 16:30 BP 114 / 68; Pulse 60; Resp 18; Pulse Ox 96% ; db 19:37 BP 112 / 77; Pulse 62; Resp 16; Pulse Ox 98% on R/A; kd3 ED Course: 11:31 Patient arrived in ED. bd 11:42 Joaquin Bai MD is Attending Physician. sp3 12:05 Basic Metabolic Panel Sent. bc6 12:05 CBC with Diff Sent. bc6 12:05 LFT's Sent. bc6 12:05 Magnesium Sent. bc6 12:05 NT PRO-BNP Sent. bc6 12:05 PT-INR Sent. bc6 12:05 Troponin HS Sent. bc6 12:05 Initial lab(s) drawn, by me, sent to lab. Maintain EMS IV. Dressing intact. Good blood bc6 return noted. Site clean \T\ dry. Gauge \T\ site: 20 \T\LAC. Flushed with 10 mL NS. 12:11 Leonie Robins, RN is Primary Nurse. iw 12:15 Triage completed. iw 12:16 Arm band placed on. iw 12:41 XRAY Chest (1 view) In Process Unspecified. EDMS 14:10 Demond Ramos is Hospitalizing Provider. sp3 15:46 Patient has correct armband on for positive identification. Bed in low position. Call db light in reach. Side rails up X2. Client placed on continuous cardiac and pulse oximetry monitoring. NIBP monitoring applied. candy maker on. Pulse ox on. NIBP on. Warm blanket given. Pillow given. 19:33 No provider procedures requiring assistance completed. Patient admitted, IV remains in kd3 place. 19:33 Provided Education on: need for admit . kd3 Administered Medications: No medications were administered Medication: 16:37 VIS not applicable for this client. db Outcome: 14:10 Decision to Hospitalize by Provider. sp3 19:33 Admitted to Med/surg kd3 19:33 Condition: stable 19:33 Condition: stable 19:33 Discharge instructions given to patient, Instructed on the need for admit, Demonstrated understanding of instructions, 19:38 Patient left the ED. kd3 Signatures: Dispatcher [employer] EDMS Carmen Khalil Irene, NORRIS PISANO iw Joaquin Bai MD MD sp3 Trisha Spence RN RN 3 Nancy Blackwood RN RN db Desire Bautista bc6 Corrections: (The following items were deleted from the chart) 12:22 12:14 Pulse 67bpm; Resp 19bpm; Pulse Ox 98% RA; iw iw 18:02 12:31 BP 91 / 54; Pulse 70bpm; Resp 18bpm; Pulse Ox 97% RA; iw iw
[2025-03-25 15:44] LABS: PT Prothrombin Time 12.9 SECONDS (10-13.0); Protime INR 1.15
--- NOTE | 2025-03-25 17:12 | P.HP ---
Certification for Inpatient Patient admitted to: Inpatient With expected LOS: >2 Midnights Patient will require the following post-hospital care: None Practitioner: I am a practitioner with admitting privileges, knowledge of patient current condition, hospital course, and medical plan of care. Services: Services provided to patient in accordance with Admission requirements found in Title 42 Section 412.3 of the Code of Federal Regulations Patient History Date of Service: 03/25/25 Reason for admission: AICD shock History of Present Illness: 64-year-old female with history of CAD with previous three-vessel CABG in 2013, pacemaker defibrillator placement 2019, chronic systolic congestive heart failure, atrial fibrillation on chronic anticoagulation presents the emergency department after being shocked by her defibrillator this morning. She reports being in her usual state of health then this morning when walking from her vehicle to her house she was feeling more short of breath than she typically would be and then felt a shock. After this she came to the emergency department for evaluation. Patient was evaluated in the emergency department her rhythm is atrial paced on the EKG labs are unremarkable initial high sensitive troponin is normal at 17.9 with a BNP of 729 chest x-ray was performed and negative for acute findings. We were able to get her pacemaker interrogated and it did show a shock today at 09 58 for an interpreted rhythm of V-fib. Patient reports that she was previously on carvedilol and amiodarone but these were discontinued a few months back. Patient will be admitted to the hospital, monitored on telemetry and seen by cardiology. Allergies No Known Allergies Allergy (Verified 08/06/20 08:53) Home Medications: Aspirin Chewable [Aspirin Chewable*] 81 mg PO BEDTIME 05/02/14 Levothyroxine [Synthroid*] 0.05 mg PO DAILY 10/02/15 Amiodarone HCl [Cordarone*] 200 mg PO [id number] 06/10/17 Atorvastatin Calcium [Lipitor] 40 mg PO BEDTIME 06/10/17 Gabapentin [Neurontin*] 300 mg PO TID 06/10/17 ALPRAZolam [Xanax*] 0.25 mg PO TIDP PRN 01/08/19 Furosemide [Lasix] 40 mg PO EVERY 3RD DAY 01/08/19 carvediloL [Coreg*] 6.25 mg PO DAILY 01/08/19 Ascorbic Acid [Vitamin C] 1 tab PO DAILY 08/05/20 Docosahexanoic AC/Epa [Fish Oil 1,000 MG*] 1 cap PO TID 08/05/20 Mv-Min/Iron/Folic/Calcium/Vitk [Women's Multivitamin Tablet] 1 each PO DAILY 08/05/20 Rivaroxaban [Xarelto*] 1 tab PO DAILY 08/05/20 Sacubitril/Valsartan [Entresto 97 mg-103 mg Tablet] 1 each PO BID 08/05/20 Semaglutide [Ozempic] 0.5 mg SQ EVERY 7TH DAY 08/05/20 Ubidecarenone/Vit E Acet [Co Q-10 100 mg Softgel] 1 each PO DAILY 08/05/20 Vitamin B Complex [B-Complex Vitamin] 1 cap PO DAILY 08/05/20 - Past Medical/Surgical History Diabetic: Yes -: High Cholesterol -: CA -: Afib -: CHF -: kidney Problems -: HYpothyroidism -: Arthritis -: BILATERAL TUBAL LIGATION -: Triple bypass - Family History Mother -: Diabetes, Liver disease - Social History Alcohol use: No CD- Drugs: No Caffeine use: Yes Place of Residence: Home Review of Systems 10-point ROS is otherwise unremarkable Respiratory: Shortness of Breath Physical Examination - Physical Exam General: Alert, In no apparent distress, Oriented x3 HEENT: Atraumatic, PERRLA, EOMI Neck: Supple, 2+ carotid pulse no bruit, No LAD Respiratory: Clear to auscultation bilaterally, Normal air movement Cardiovascular: Regular rate/rhythm, Normal S1 S2 Gastrointestinal: Normal bowel sounds, No tenderness Musculoskeletal: No tenderness Integumentary: No rashes Neurological: Normal speech, Normal strength at 5/5 x4 extr, Normal affect - Studies Laboratory Data (last 24 hrs) 03/25/25 03/25/25 03/25/25 15:30 12:03 12:03 WBC 7.40 Hgb 14.9 Hct 45.1 H Plt Count 258 PT 12.9 INR 1.15 Sodium 142 Potassium 3.5 BUN 25 H Creatinine 1.15 H Glucose 183 H Magnesium 2.1 Total Bilirubin 0.4 AST 15 ALT 20 Alkaline Phosphatase 80 Assessment and Plan - Plan Assessment: AICD shock-possible VF History of CAD with triple bypass 2013 Atrial fibrillation on chronic anticoagulation Chronic systolic congestive heart failureunknown EF Hyperlipidemia Hypothyroidism Plan: AICD shock-possible VF History of CAD with triple bypass 2013 Atrial fibrillation on chronic anticoagulation Chronic systolic congestive heart failureunknown EF Reports being taken off of carvedilol and amiodarone around 6 months ago 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 Interrogation report reviewed, 1 treatment delivered at at 09 58 this morning for rhythm read as V-fib Monitor on telemetry, trend troponins and consult cardiology Echocardiogram ordered Denies chest pain or shortness of breath at this time As remained in paced rhythm throughout time in ER Hyperlipidemia Hypothyroidism Continue home medications Will check thyroid panel in the morning DVT PPX: Xarelto Code status: Full code Discharge Plan: Home Plan to discharge in: 24 Hours - Advance Directives Does patient have a Living Will: No Does patient have a Durable POA for Healthcare: No - Code Status/Comfort Care Code Status Assessed: Yes (Full code) Critical Care: No Time Spent Managing Pts Care (In Minutes): 70
[2025-03-25 19:48] VITALS: BMI 26.4
[2025-03-25] MEDS: ATORVASTATIN 40 MG TAB PO SCH (21:11)
[2025-03-25] MEDS: MEXILETINE HCL 150 MG CAP PO SCH (21:13)
[2025-03-25] MEDS: SACUBITRIL/VALSARTAN 49/51 MG TAB PO SCH (21:16)
[2025-03-26 02:05] VITALS: O2SAT 98
[2025-03-26] MEDS: ACETAMINOPHEN 325 MG TABLET PO PRN (06:29)
[2025-03-26] MEDS: LEVOTHYROXINE SOD 0.088 MG TAB PO SCH (06:29)
[2025-03-26 06:55] LABS: Absolute Lymphocytes (CBC) 1.7 K/uL (0.7-4.9); Hematocrit 43.4 % (36.0-45.0); Hemoglobin 14.2 g/dL (12.0-15.0); MCH 28.0 pg (27.0-35.0); MCHC 32.7 g/dL (32.0-36.0); MCV 85.7 fL (80-100); MPV 8.3 fL (7.6-11.3); Nucleated RBC Absolute Count 0.0 (0-0); Nucleated Red Blood Cells % 0.0 % (0-0); RBC Red Blood Cell Count 5.06 M/uL (3.86-4.86); White Blood Count 6.40 thou/uL (4.3-10.9)
[2025-03-26 07:23] LABS: Anion Gap 8.7 mEq/L (5.0-15.0); BUN Blood Urea Nitrogen 26.0 mg/dL (7-18); Glucose Level 105.0 mg/dL (74-106); Potassium 3.7 mEq/L (3.5-5.1); Troponin High Sensitivity 32.9 pg/mL (<58.9)
[2025-03-26 07:25] LABS: Thyroid Stimulating Hormone 3.99 uIU/mL (0.358-3.740)
[2025-03-26] MEDS ORDERED: ENOXAPARIN 40 MG/0.4 ML SQ SCH (09:00)
[2025-03-26 09:28] VITALS: TEMP 98.2
[2025-03-26] MEDS: ASPIRIN EC 81 MG TAB PO SCH (10:07)
--- NOTE | 2025-03-26 12:47 | P.CNS ---
Date of Consult: 03/26/25 Chief Complaint: AICD shock History of Present Illness: Kerri with PMH of CAD s/p CABG x3, AF, Heart failure, presented with ICD shock, patient report feeling palpitations and then felt a device shock, denies chest pain, no SOB, no syncope. Allergies tramadol Adverse Reaction (Verified 03/25/25 19:41) Nausea/Vomiting Home medications list reviewed: Yes Home Medications: Aspirin Chewable [Aspirin Chewable*] 81 mg PO BEDTIME 05/02/14 Levothyroxine [Synthroid*] 88 mcg PO DAILY 10/02/15 Amiodarone HCl [Cordarone*] 200 mg PO [id number] 06/10/17 Atorvastatin Calcium [Lipitor] 40 mg PO BEDTIME 06/10/17 Gabapentin [Neurontin*] 300 mg PO TID 06/10/17 ALPRAZolam [Xanax*] 0.25 mg PO TIDP PRN 01/08/19 Furosemide [Lasix] 40 mg PO EVERY 3RD DAY 01/08/19 Ascorbic Acid [Vitamin C] 1 tab PO DAILY 08/05/20 Mv-Min/Iron/Folic/Calcium/Vitk [Women's Multivitamin Tablet] 1 each PO DAILY 08/05/20 Rivaroxaban [Xarelto*] 1 tab PO DAILY 08/05/20 Sacubitril/Valsartan [Entresto 97 mg-103 mg Tablet] 1 each PO BID 08/05/20 Semaglutide [Ozempic] 0.5 mg SQ EVERY 7TH DAY 08/05/20 Ubidecarenone/Vit E Acet [Co Q-10 100 mg Softgel] 1 each PO DAILY 08/05/20 Dapagliflozin Propanediol [Farxiga] 10 mg PO DAILY 03/25/25 - Past Medical/Surgical History Diabetic: Yes -: High Cholesterol -: OR -: Afib -: CHF -: kidney Problems -: HYpothyroidism -: Arthritis -: BILATERAL TUBAL LIGATION -: Triple bypass - Family History Mother Medical History: Diabetes, Liver disease - Social History Smoking Status: Unknown if ever smoked Alcohol use: No CD- Drugs: No Caffeine use: Yes Place of Residence: Home Review of Systems 10-point ROS is otherwise unremarkable Physical Examination Temp Pulse Resp BP Pulse Ox 98.2 F 60 18 124/67 94 03/26/25 08:00 03/26/25 08:00 03/26/25 08:00 03/26/25 08:00 03/26/25 08:00 General: Alert, In no apparent distress HEENT: Atraumatic, PERRLA, Mucous membr. moist/pink, EOMI, Sclerae nonicteric Neck: Supple, 2+ carotid pulse no bruit, No LAD, Without JVD or thyroid abnorma lity Respiratory: Clear to auscultation bilaterally, Normal air movement Cardiovascular: Regular rate/rhythm, Normal S1 S2 Gastrointestinal: Normal bowel sounds, No tenderness Musculoskeletal: No tenderness Integumentary: No rashes Neurological: Normal gait, Normal speech, Normal tone, Normal affect Lymphatics: No axilla or inguinal lymphadenopathy Laboratory Data (last 24 hrs) 03/25/25 15:30 PT 12.9 INR 1.15 - Problems (1) Ventricular fibrillation Current Visit: Yes Status: Acute Plan: patient device check shown VF in the rate of 230, s/p ATP and possible Shock started patient on Mexlitine 150 mg po BID Troponin negative x3 outpatient follow up with cardiology for cardiac PET. (2) CAD (coronary artery disease) of artery bypass graft Onset Date: 06/10/17 Current Visit: No Status: Acute Plan: stable, negative troponin continue ASA 81 mg daily outpatient cardiac PET. (3) Atrial fibrillation Current Visit: Yes Status: Acute Plan: currently in sinus rhythm continue Xarelto
--- NOTE | 2025-03-26 13:08 | P.DS ---
Admission Date: 03/25/25 Discharge Date: 03/26/25 Disposition: ROUTINE DISCHARGE Discharge Condition: GOOD Reason for Admission: AICD shock Brief History of Present Illness: 64-year-old female with history of CAD with previous three-vessel CABG in 2013, pacemaker defibrillator placement 2019, chronic systolic congestive heart failure, atrial fibrillation on chronic anticoagulation presents the emergency department after being shocked by her defibrillator this morning. She reports being in her usual state of health then this morning when walking from her vehicle to her house she was feeling more short of breath than she typically would be and then felt a shock. After this she came to the emergency department for evaluation. Patient was evaluated in the emergency department her rhythm is atrial paced on the EKG labs are unremarkable initial high sensitive troponin is normal at 17.9 with a BNP of 729 chest x-ray was performed and negative for acute findings. We were able to get her pacemaker interrogated and it did show a shock today at 09 58 for an interpreted rhythm of V-fib. Patient reports that she was previously on carvedilol and amiodarone but these were discontinued a few months back. Patient will be admitted to the hospital, monitored on telemetry and seen by cardiology. Hospital Course: Assessment: AICD shock-possible VF History of CAD with triple bypass 2013 Atrial fibrillation on chronic anticoagulation Chronic systolic congestive heart failureunknown EF Hyperlipidemia Hypothyroidism Patient was admitted to hospital after receiving a shock from her AICD on 03/25 at 0958. Her pacemaker/defibrillator interpreted her rhythm is ventricular fibrillation and shocked her, the treatment was successful, she did notice and feel the shock implant reason she came to the emergency department. Patient was evaluated in the emergency department her electrolytes were within normal limits, she had no further arrhythmias. She was seen by cardiology who recommended starting mexiletine 150 mg twice daily which was initiated during the hospitalization. 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2 g/dL (12.0-15.0) 03/26/25 06:46 Hct 43.4 % (36.0-45.0) 03/26/25 06:46 Plt Count 225 thou/uL (152-406) 03/26/25 06:46 PT 12.9 SECONDS (10-13.0) 03/25/25 15:30 INR 1.15 03/25/25 15:30 Sodium 140 mEq/L (136-145) 03/26/25 06:46 Potassium 3.7 mEq/L (3.5-5.1) 03/26/25 06:46 BUN 26 mg/dL (7-18) H 03/26/25 06:46 Creatinine 1.04 mg/dL (0.55-1.02) H 03/26/25 06:46 Glucose 105 mg/dL (74-106) 03/26/25 06:46 Magnesium 2.1 mg/dL (1.6-2.4) 03/25/25 12:03 Total Bilirubin 0.4 mg/dL (0.2-1.0) 03/25/25 12:03 AST 15 U/L (15-37) 03/25/25 12:03 ALT 20 U/L (13-56) 03/25/25 12:03 Alkaline Phosphatase 80 U/L (45-117) 03/25/25 12:03 Home Medications: Aspirin Chewable [Aspirin Chewable*] 81 mg PO BEDTIME 05/02/14 Levothyroxine [Synthroid*] 88 mcg PO DAILY 10/02/15 Amiodarone HCl [Cordarone*] 200 mg PO [id number] 06/10/17 Atorvastatin Calcium [Lipitor] 40 mg PO BEDTIME 06/10/17 Gabapentin [Neurontin*] 300 mg PO TID 06/10/17 ALPRAZolam [Xanax*] 0.25 mg PO TIDP PRN 01/08/19 Furosemide [Lasix] 40 mg PO EVERY 3RD DAY 01/08/19 Ascorbic Acid [Vitamin C] 1 tab PO DAILY 08/05/20 Mv-Min/Iron/Folic/Calcium/Vitk [Women's Multivitamin Tablet] 1 each PO DAILY 08/05/20 Rivaroxaban [Xarelto*] 1 tab PO DAILY 08/05/20 Sacubitril/Valsartan [Entresto 97 mg-103 mg Tablet] 1 each PO BID 08/05/20 Semaglutide [Ozempic] 0.5 mg SQ EVERY 7TH DAY 08/05/20 Ubidecarenone/Vit E Acet [Co Q-10 100 mg Softgel] 1 each PO DAILY 08/05/20 Dapagliflozin Propanediol [Farxiga] 10 mg PO DAILY 03/25/25 Mexiletine HCl [Mexitil*] 150 mg PO BID 30 Days #60 cap 03/26/25 Rivaroxaban [Xarelto*] 15 mg PO DAILY AT SUPPER 03/26/25 New Medications: Mexiletine HCl [Mexitil*] 150 mg PO BID 30 Days #60 cap Physician Discharge Instructions: Patient was admitted to hospital after receiving a shock from her AICD on 03/25 at 0958. Her pacemaker/defibrillator interpreted her rhythm is ventricular fibrillation and shocked her, the treatment was successful, she did notice and feel the shock implant reason she came to the emergency department. Patient was evaluated in the emergency department her electrolytes were within normal limits, she had no further arrhythmias. She was seen by cardiology who recommended starting mexiletine 150 mg twice daily which was initiated during the hospitalization. Patient is doing well and stable for discharge and outpatient follow-up with her machine setter and repairer Diet: Regular Activity: Ad ry Followup: NONE,NONE [Primary Care Provider] - 1-2 Weeks Time spent managing pt's care (in minutes): 35
[2025-03-26 14:35] VITALS: BP 119/66
[2025-03-26] MEDS ORDERED: RIVAROXABAN 15 MG TABLET PO SCH (17:00)
== END 2025-03-26 19:56 | disposition home or self-care (01) ==
LOC: ER 11:27 → ERHOLD 17:00 → 4TH 19:08
PROVIDERS: ADMIT Internal Medicine; ATTEND Hospitalist
DX: I49.01 Ventricular fibrillation (principal); I25.10 Atherosclerotic heart disease of native coronary artery without angina pectoris; I50.22 Chronic systolic (congestive) heart failure; I48.11 Longstanding persistent atrial fibrillation; E03.9 Hypothyroidism, unspecified; E78.5 Hyperlipidemia, unspecified; Z79.01 Long term (current) use of anticoagulants; Z95.1 Presence of aortocoronary bypass graft; Z95.810 Presence of automatic (implantable) cardiac defibrillator
CPT/HCPCS: 93005; 85025 ×2; 80048 ×2; 36415; 83735; 85610; 82947 ×2; 80076; 84443; 84484 ×3; 84439; 83880; 71045; 99285; G0378 ×4